=== PATIENT | male | born 1960 | race Caucasian/White ===

== ENCOUNTER 2022-02-10 13:57 | Inpatient (IN) | payer OTHER ==
[2022-02-10] MEDS ORDERED: methylPREDNISolone SOD SUCCI 125 MG/2 ML VIAL IV STA (14:26)
[2022-02-10] MEDS ORDERED: SODIUM CHLORIDE 0.9% 1,000 ML IV STA ×2 (14:26)
[2022-02-10] MEDS ORDERED: IPRATROPIUM-ALBUTEROL 3 ML NEB INHALATION STA (14:26)
[2022-02-10] MEDS ORDERED: ASPIRIN 81 MG PO STA (14:28)
[2022-02-10 14:56] LABS: ALT 22 U/L (4-49); AST 45 U/L (17-59); African American GFR (CKD) >90 (>60 ml/min/1.73 sqM); Albumin 2.1 g/dL (3.5-5.0); Alkaline Phosphatase 191 U/L (38-126); Anion Gap 0 mmol/L; Blood Urea Nitrogen 9 mg/dL (9-20); Calcium 7.2 mg/dL (8.4-10.2); Carbon Dioxide 33 mmol/L (22-30); Chloride 97 mmol/L (98-107); Glucose 99 mg/dL (74-99); Non-African American GFR(CKD) >90 (>60 ml/min/1.73 sqM); Potassium 4.1 mmol/L (3.5-5.1); Sodium 130 mmol/L (137-145); Total Bilirubin 0.3 mg/dL (0.2-1.3); Total Protein 5.7 g/dL (6.3-8.2)
--- NOTE | 2022-02-10 15:11 | XR ---
EXAMINATION TYPE: XR chest 2V DATE OF EXAM: 02/10/2022 2:59 PM COMPARISON: none TECHNIQUE: XR chest 2V Frontal and lateral views of the chest. CLINICAL INDICATION:Male, 61 years old with history of difficulty breathing; FINDINGS: Lungs/Pleura: Right upper lobe airspace opacity. No evidence of pleural effusion. Pulmonary vascularity: Unremarkable. Heart/mediastinum: Cardiomediastinal silhouette is unremarkable. Musculoskeletal: No acute osseous pathology. IMPRESSION: Confluent right upper lobe airspace opacity concerning for mass and/or pneumonia. Further evaluation with CT chest with IV contrast is recommended.
[2022-02-10] MEDS ORDERED: IPRATROPIUM-ALBUTEROL 3 ML NEB INHALATION PRN (15:16)
[2022-02-10] MEDS ORDERED: SYMBICORT 160-4.5 MCG INHALER INHALATION STA (15:18)
[2022-02-10] MEDS ORDERED: RX INFO: IV CONTRAST WAS GIVEN 1 EACH MISC MISCELLANE PRN (15:30)
[2022-02-10] MEDS ORDERED: AZITHROMYCIN 500 MG in SODIUM CHLORIDE 0.9% 250 ML IVPB STA (15:34)
--- NOTE | 2022-02-10 15:38 | ED ---
SOB HPI - General Chief Complaint: Shortness of Breath Stated Complaint: MAGALIE Time Seen by Provider: 02/10/22 14:11 Source: EMS Mode of arrival: EMS - History of Present Illness Initial Comments: This 61-year-old male presents with complaint of shortness of breath. He states that he has been having a significant cough with green and yellow production. This is been progressively worsening over the last 2 weeks. He is an active tobacco abuser. He has been told in the past that he may have COPD. He does not utilize oxygen at home. He does not utilize any breathing treatments. He states that he ran out of his inhaler. He does not follow up with providers frequently. He does not take any home medications as he does not follow up with providers. He denies any actual fevers. There is no leg pain or swelling. He has had occasional chest pressure in his midsternal region which is not pleuritic in nature. He presents via EMS and his oxygenation apparently was 80% on room air per EMS but is now up to 97% on 2 L. No other complaints or modifying factors. Family does call in and relates that patient is addicted to alcohol and oxycodone. I do ask the patient about this and he states that he drinks 2 beers a day but has never gone through any alcohol withdrawals. He adamantly denies utilizing any oxycodone. Family later does call back and states that somebody will be coming to the emergency department to sneak him some oxycodone. Patient is complaining of having a bad back and states that the mattress is uncomfortable and requests something to help relax him so he can get more comfortable. No other complaints or modifying factors. - Related Data Home Medications Medication Instructions Recorded Confirmed No Known Home Medications 02/10/22 02/10/22 Allergies Allergy/AdvReac Type Severity Reaction Status Date / Time No Known Allergies Allergy Verified 02/10/22 16:06 Review of Systems ROS Statement: Those systems with pertinent positive or pertinent negative responses have been documented in the HPI. ROS Other: All systems not noted in ROS Statement are negative. Past Medical History Past Medical History: No Reported History History of Any Multi-Drug Resistant Organisms: None Reported Past Surgical History: Appendectomy Additional Past Surgical History / Comment(s): knee surgery x 2, shoulder surgery Past Psychological History: No Psychological Hx Reported Smoking Status: Current every day smoker Past Alcohol Use History: Daily Past Drug Use History: Marijuana General Exam - General Exam Comments Initial Comments: GENERAL: The patient is malnourished and dehydrated. VITAL SIGNS: Heart rate, blood pressure, respiratory rate reviewed as recorded in nurse's notes. EYES: Pupils are round and reactive. Extraocular movements are intact. No conjunctival / lid redness or swelling. ENT: No external evidence of injury, swelling, or ecchymosis. Airway is patent. Throat is clear. NECK: Nontender. No swelling or evidence of injury. No subcutaneous emphysema. Trachea is midline. No thyroid mass. HEART: Regular rate and rhythm. Good peripheral pulses. LUNGS/CHEST: Breath sounds clear and equal bilaterally. Decreased aeration noted bilaterally. Patient has barrel chest morphology. ABDOMEN: Abdomen soft without tenderness. No palpable masses or organomegaly. No peritoneal signs. No abdominal wall swelling or ecchymosis. EXTREMITIES: No extremity tenderness. Normal muscle tone and function. No thorac olumbar tenderness. NEUROLOGIC: Sensation is grossly intact. Cranial nerve exam reveals face is sym metrical, tongue is midline, speech is clear. SKIN: No abrasions or ecchymosis is noted. No induration or masses noted. PSYCHIATRIC: Alert and oriented. Appropriate behavior and judgment. Course Vital Signs 02/10/22 02/10/22 02/10/22 13:59 16:13 16:21 Temperature 97.7 F Pulse Rate 91 88 90 Respiratory 24 Rate Blood Pressure 93/63 O2 Sat by Pulse 95 Oximetry 02/10/22 02/10/22 02/10/22 16:22 16:33 17:30 Temperature Pulse Rate 90 92 98 Respiratory 29 H Rate Blood Pressure 100/67 O2 Sat by Pulse 95 Oximetry Medical Decision Making - Medical Decision Making The patient was seen and examined. All diagnostics were reviewed. The patient was placed on vehicle monitor technician and no ectopy is identified. EKG shows a normal sinus rhythm at a rate of 83. There is some T-wave inversions noted in V1 through V3. There is no ST elevation identified. The NC intervals 154, QRS duration is 86, and the QTc interval is 444. Patient receives 2 DuoNeb breathing treatments as well as Solu-Medrol 125 mg IV. He has multiple laboratory values ordered. There appears to be some delay in receiving these. The basic metabolic profile did come back and only shows slight abnormalities with normal renal function. Chest x-ray shows a large mass versus infiltrate in the right upper chest. The radiologist recommends a computed tomography scan of the thorax for further evaluation. This is ordered and is pending. The case is discussed with Dr. Holliday from internal medicine and he would like patient admitted to the hospital. Patient started on Rocephin and Zithromax. Pulmonology is consulted from internal medicine. Viral panels are pending as well. Patient was admitted for full admission for further treatment. Approximately 30 minutes critical care time was utilized and treatment of the patient. The patient has positive COVID test. The white blood cell count also is updated. The computed tomography scan of the thorax was completed and does show evidence of extensive right upper lobe inflammatory changes. They relate that a cavitary lesion cannot be excluded. Underlying mass cannot be excluded. CT scan findings are discussed with Dr. Iglesias and he recommends Zosyn and Levaquin. Antibiotics are changed to these medications instead. - Lab Data Result diagrams: 02/10/22 14:41 02/10/22 14:41 Lab Results 02/10/22 02/10/22 02/10/22 Range/Units 14:41 14:41 14:41 WBC 16.5 H (3.8-10.6) k/uL RBC 3.67 L (4.30-5.90) m/uL Hgb 11.0 L (13.0-17.5) gm/dL Hct 34.7 L (39.0-53.0) % MCV 94.7 (80.0-100.0) fL MCH 29.9 (25.0-35.0) pg MCHC 31.5 (31.0-37.0) g/dL RDW 13.6 (11.5-15.5) % Plt Count 482 H (150-450) k/uL MPV 7.6 Neutrophils % (Manual) 90 % Lymphocytes % (Manual) 6 % Monocytes % (Manual) 4 % Neutrophils # (Manual) 14.85 H (1.3-7.7) k/uL Lymphocytes # (Manual) 0.99 L (1.0-4.8) k/uL Monocytes # (Manual) 0.66 (0-1.0) k/uL Nucleated RBCs 0 (0-0) /100 WBC Manual Slide Review Performed Hypochromasia Slight PT 11.8 (9.0-12.0) sec INR 1.1 (<1.2) APTT 31.1 H (22.0-30.0) sec Sodium 130 L (137-145) mmol/L Potassium 4.1 (3.5-5.1) mmol/L Chloride 97 L (98-107) mmol/L Carbon Dioxide 33 H (22-30) mmol/L Anion Gap 0 mmol/L BUN 9 (9-20) mg/dL Creatinine 0.39 L (0.66-1.25) mg/dL Est GFR (CKD-EPI)AfAm >90 (>60 ml/min/1.73 sqM) Est GFR (CKD-EPI)NonAf >90 (>60 ml/min/1.73 sqM) Glucose 99 (74-99) mg/dL Plasma Lactic Acid Carlos (0.7-2.0) mmol/L Calcium 7.2 L (8.4-10.2) mg/dL Magnesium 2.0 (1.6-2.3) mg/dL Total Bilirubin 0.3 (0.2-1.3) mg/dL AST 45 (17-59) U/L ALT 22 (4-49) U/L Alkaline Phosphatase 191 H (38-126) U/L Troponin I (0.000-0.034) ng/mL NT-Pro-B Natriuret Pep pg/mL Total Protein 5.7 L (6.3-8.2) g/dL Albumin 2.1 L (3.5-5.0) g/dL Influenza Type A (PCR) (Not Detectd) Influenza Type B (PCR) (Not Detectd) RSV (PCR) (Not Detectd) SARS-CoV-2 (PCR) (Not Detectd) 02/10/22 02/10/22 02/10/22 Range/Units 14:41 14:41 14:41 WBC (3.8-10.6) k/uL RBC (4.30-5.90) m/uL Hgb (13.0-17.5) gm/dL Hct (39.0-53.0) % MCV (80.0-100.0) fL MCH (25.0-35.0) pg MCHC (31.0-37.0) g/dL RDW (11.5-15.5) % Plt Count (150-450) k/uL MPV Neutrophils % (Manual) % Lymphocytes % (Manual) % Monocytes % (Manual) % Neutrophils # (Manual) (1.3-7.7) k/uL Lymphocytes # (Manual) (1.0-4.8) k/uL Monocytes # (Manual) (0-1.0) k/uL Nucleated RBCs (0-0) /100 WBC Manual Slide Review Hypochromasia PT (9.0-12.0) sec INR (<1.2) APTT (22.0-30.0) sec Sodium (137-145) mmol/L Potassium (3.5-5.1) mmol/L Chloride (98-107) mmol/L Carbon Dioxide (22-30) mmol/L Anion Gap mmol/L BUN (9-20) mg/dL Creatinine (0.66-1.25) mg/dL Est GFR (CKD-EPI)AfAm (>60 ml/min/1.73 sqM) Est GFR (CKD-EPI)NonAf (>60 ml/min/1.73 sqM) Glucose (74-99) mg/dL Plasma Lactic Acid Carlos 1.2 (0.7-2.0) mmol/L Calcium (8.4-10.2) mg/dL Magnesium (1.6-2.3) mg/dL Total Bilirubin (0.2-1.3) mg/dL AST (17-59) U/L ALT (4-49) U/L Alkaline Phosphatase (38-126) U/L Troponin I 0.014 (0.000-0.034) ng/mL NT-Pro-B Natriuret Pep 1760 pg/mL Total Protein (6.3-8.2) g/dL Albumin (3.5-5.0) g/dL Influenza Type A (PCR) (Not Detectd) Influenza Type B (PCR) (Not Detectd) RSV (PCR) (Not Detectd) SARS-CoV-2 (PCR) (Not Detectd) 02/10/22 Range/Units 15:07 WBC (3.8-10.6) k/uL RBC (4.30-5.90) m/uL Hgb (13.0-17.5) gm/dL Hct (39.0-53.0) % MCV (80.0-100.0) fL MCH (25.0-35.0) pg MCHC (31.0-37.0) g/dL RDW (11.5-15.5) % Plt Count (150-450) k/uL MPV Neutrophils % (Manual) % Lymphocytes % (Manual) % Monocytes % (Manual) % Neutrophils # (Manual) (1.3-7.7) k/uL Lymphocytes # (Manual) (1.0-4.8) k/uL Monocytes # (Manual) (0-1.0) k/uL Nucleated RBCs (0-0) /100 WBC Manual Slide Review Hypochromasia PT (9.0-12.0) sec INR (<1.2) APTT (22.0-30.0) sec Sodium (137-145) mmol/L Potassium (3.5-5.1) mmol/L Chloride (98-107) mmol/L Carbon Dioxide (22-30) mmol/L Anion Gap mmol/L BUN (9-20) mg/dL Creatinine (0.66-1.25) mg/dL Est GFR (CKD-EPI)AfAm (>60 ml/min/1.73 sqM) Est GFR (CKD-EPI)NonAf (>60 ml/min/1.73 sqM) Glucose (74-99) mg/dL Plasma Lactic Acid Carlos (0.7-2.0) mmol/L Calcium (8.4-10.2) mg/dL Magnesium (1.6-2.3) mg/dL Total Bilirubin (0.2-1.3) mg/dL AST (17-59) U/L ALT (4-49) U/L Alkaline Phosphatase (38-126) U/L Troponin I (0.000-0.034) ng/mL NT-Pro-B Natriuret Pep pg/mL Total Protein (6.3-8.2) g/dL Albumin (3.5-5.0) g/dL Influenza Type A (PCR) Not Detected (Not Detectd) Influenza Type B (PCR) Not Detected (Not Detectd) RSV (PCR) Not Detected (Not Detectd) SARS-CoV-2 (PCR) Detected A (Not Detectd) Disposition Clinical Impression: Acute respiratory failure, Pneumonia, COPD exacerbation, Chest pain, COVID-19, Leukocytosis, Anemia, Cavitary lesion of lung, Pulmonary mass Disposition: ADMITTED IP TO THIS HOSP Condition: Fair Is patient prescribed a controlled substance at d/c from ED?: No Time of Disposition: 16:05 Decision Date: 02/10/22 Decision Time: 16:05
[2022-02-10] MEDS ORDERED: PNEUMONIA PROTOCOL UTILIZED 1 EACH MISC PO PRN (15:53)
[2022-02-10 15:58] LABS: INR 1.1 (<1.2); Partial Thromboplastin Time 31.1 sec (22.0-30.0); Prothrombin Time 11.8 sec (9.0-12.0)
[2022-02-10 16:03] LABS: HCT 34.7 % (39.0-53.0); Hypochromasia Slight; MCH 29.9 pg (25.0-35.0); MCHC 31.5 g/dL (31.0-37.0); MCV 94.7 fL (80.0-100.0); Mean Platelet Volume 7.6; Platelet Count 482 k/uL (150-450); RBC 3.67 m/uL (4.30-5.90); RDW 13.6 % (11.5-15.5); WBC 16.5 k/uL (3.8-10.6)
[2022-02-10 17:03] LABS: Lymphocytes # (M) 0.99 k/uL (1.0-4.8); Monocytes # (M) 0.66 k/uL (0-1.0); Neutrophils # (M) 14.85 k/uL (1.3-7.7); Neutrophils % (M) 90 %; Nucleated Red Blood Cells 0 /100 WBC (0-0); Total Cells Counted 100
--- NOTE | 2022-02-10 17:43 | CT ---
EXAMINATION TYPE: CT chest w con CT DLP: 238.9 mGycm, Automated exposure control for dose reduction was used. DATE OF EXAM: 02/10/2022 5:19 PM COMPARISON: Same day CLINICAL INDICATION:Male, 61 years old with history of mass vs acute right, mass vs infiltrate from p rior xr. TECHNIQUE: Multiple axial images were obtained through the chest. Sagittal and coronal reformats were created for review. Contrast used:100ml mL of Isovue 370 with IV Contrast Oral contrast used: none. FINDINGS: LUNGS/ PLEURA/airways: New confluent right upper lobe airspace opacity with few scattered air cysts. Involves the majority of the upper lobe and extends into the lower lobe posteriorly. There is bronchi al wall thickening most pronounced in the lower lobes. Scattered groundglass and opacities are seen a djacent to the consolidation areas. There is a masslike opacity which stands out as it is away from t he remainder of the consolidation more inferiorly measuring up to 2.7 cm. No evidence of pleural effu manjula. The left lung is clear with mild emphysema changes. Some of the airways extending into the cons olidation are opacified more distally. HEART: Size within normal limits. Atherosclerosis of the coronary arteries. MEDIASTINUM: Enlarged lymph nodes are seen within the mediastinum including right low paratracheal me asuring 12 mm in right upper paratracheal conglomerate measuring up to 10 mm. VASCULATURE: No aortic aneurysm. No evidence for pulmonary embolism. 4 vessel aortic arch. MUSCULOSKELETAL: No acute osseous abnormalities SOFT TISSUES/LYMPH NODES: Unremarkable. LOWER NECK: No significant findings. UPPER ABDOMEN: No significant findings. IMPRESSION: 1. Extensive right-sided consolidation, some of which looks like it may be infectious/inflammatory w ith aspiration on entirely excluded. Other portions in the upper lobe have air pockets which could re present cavitation in the setting of necrotizing pneumonia. Underlying mass remains not entirely excl uded given enlarged lymph nodes within the mediastinum. Follow-up CT after resolution of infectious/i nflammatory component is recommended to exclude underlying mass. 2. No pulmonary embolism.
[2022-02-10] MEDS ORDERED: KETOROLAC 15 MG/ML 1 ML VIAL IVP STA (18:14)
[2022-02-10] MEDS ORDERED: PIPERACILLIN-TAZOBACTAM 3.375 GM in SODIUM CHLORIDE 0.9% 100 ML IVPB STA (18:19)
[2022-02-10] MEDS ORDERED: LEVOFLOXACIN 750MG-D5W PMX 750 MG in DEXTROSE/WATER 1 150ML.BAG IVPB STA (18:19)
[2022-02-10] MEDS ORDERED: LORazepam 2 MG/ML INJ IV STA (18:24)
[2022-02-10] MEDS: SODIUM CHLORIDE 0.9% 1,000 ML IV SCH (18:38)
--- NOTE | 2022-02-10 18:50 | P.HPIM ---
History of Present Illness This is a pleasant 61 years old male with no significant past medical history, presents because of difficulty breathing for the last few days Patient brought by his family member at bedside who noticed he is getting worsening dyspnea especially when walking upstairs, Also have occasional coughing and not eating well with decreased appetite over the last few days, he is making green/yellow phlegm and also complaining of from chest pain in the middle of his chest that increased with coughing and deep inspiration He denies abdominal pain vomiting or diarrhea, no dysuria or urgency, no dizziness or headache, no weakness or numbness. He smokes about half pack per day and he was consulted and agrees to quit but he declined the nicotine patch and he drinks 5-6 beers a day with some liquor and shots, also per family he uses oxycodone for dependence about 30 mg each day. Also patient is generally weak. On admission patient was mildly hypoxic and he has to be placed on 4 L normal saline with saturation improved up to 95%, he is tachypneic 24-29, slightly tachycardic about 88-98 Labs showing leukocytosis of 16.5, hemoglobin 11, platelet count slightly elevated. INR 1.1, sodium 1:30, BUN 9 and creatinine 0.3. Liver enzymes not elevated. Troponin 1 is negative at 0.012. ProBNP is 1760. Influenza and RSV viruses are negative while coronavirus is detected CT of the chest with IV contrast: New confluent right upper lobe airspace opacity with few scattered air cyst involves the majority of the upper lobe and extends into the lower lobe posteriorly. There is bronchial wall thickening most pronounced in the lower lobes. Scattered groundglass opacity. There is minus like opacity which stands hours as it is away from the remainder of consolidation more inferiorly measure up to 2.7 cm. No pulmonary embolism In the emergency room patient was started on Levaquin and Zosyn Also patient is started on Solu-Medrol 80 mg as well as multiple vitamins Review of Systems Review of systems CONSTITUTIONAL: No fever, no malaise, no fatigue. HEENT: No recent visual problems or hearing problems. Denied any sore throat. CARDIOVASCULAR: No orthopnea, PND, no palpitations, no syncope. PULMONARY: No chest wall tenderness, no hemoptysis. GASTROINTESTINAL: No diarrhea, no nausea, no vomiting, no abdominal pain. Normoactive bowel sounds. NEUROLOGICAL: No headaches, no weakness, no numbness. HEMATOLOGICAL: Denies any bleeding or petechiae. GENITOURINARY: Denies any burning micturition, frequency, or urgency. MUSCULOSKELETAL/RHEUMATOLOGICAL: Denies any joint pain, swelling, or any muscle pain. ENDOCRINE: Denies any polyuria or polydipsia. Past Medical History Past Medical History: No Reported History History of Any Multi-Drug Resistant Organisms: None Reported Past Surgical History: Appendectomy Additional Past Surgical History / Comment(s): knee surgery x 2, shoulder surgery Past Psychological History: No Psychological Hx Reported Smoking Status: Current every day smoker Past Alcohol Use History: Daily Past Drug Use History: Marijuana Medications and Allergies Home Medications Medication Instructions Recorded Confirmed Type No Known Home Medications 02/10/22 02/10/22 History Allergies Allergy/AdvReac Type Severity Reaction Status Date / Time No Known Allergies Allergy Verified 02/10/22 16:06 Physical Exam Vitals: Vital Signs Temp Pulse Resp BP Pulse Ox 02/10/22 17:30 98 29 H 100/67 95 02/10/22 16:33 92 02/10/22 16:22 90 02/10/22 16:21 90 02/10/22 16:13 88 02/10/22 13:59 97.7 F 91 24 93/63 95 Intake and Output 02/10/22 02/10/22 02/10/22 06:59 14:59 22:59 Other: Weight 54.885 kg -GENERAL: The patient is alert and oriented x3, not in any acute distress. Well cachectic HEENT: Pupils are round and equally reacting to light. EOMI. No scleral icterus. No conjunctival pallor. Normocephalic, atraumatic. No pharyngeal erythema. No thyromegaly. CARDIOVASCULAR: S1 and S2 present. No murmurs, rubs, or gallops. -PULMONARY: Diminished breath sounds and decreased air entry on both lung andino, more on the right side, no wheezing or crackles. ABDOMEN: Soft, nontender, nondistended, normoactive bowel sounds. No palpable organomegaly. MUSCULOSKELETAL: No joint swelling or deformity. EXTREMITIES: No cyanosis, clubbing, or pedal edema. NEUROLOGICAL: Gross neurological examination did not reveal any focal deficits. SKIN: No rashes. no petechiae. Results CBC & Chem 7: 02/10/22 14:41 02/10/22 14:41 Labs: Abnormal Lab Results - Last 24 Hours (Table) 02/10/22 02/10/22 02/10/22 Range/Units 14:41 14:41 14:41 WBC 16.5 H (3.8-10.6) k/uL RBC 3.67 L (4.30-5.90) m/uL Hgb 11.0 L (13.0-17.5) gm/dL Hct 34.7 L (39.0-53.0) % Plt Count 482 H (150-450) k/uL Neutrophils # (Manual) 14.85 H (1.3-7.7) k/uL Lymphocytes # (Manual) 0.99 L (1.0-4.8) k/uL APTT 31.1 H (22.0-30.0) sec Sodium 130 L (137-145) mmol/L Chloride 97 L (98-107) mmol/L Carbon Dioxide 33 H (22-30) mmol/L Creatinine 0.39 L (0.66-1.25) mg/dL Calcium 7.2 L (8.4-10.2) mg/dL Alkaline Phosphatase 191 H (38-126) U/L Total Protein 5.7 L (6.3-8.2) g/dL Albumin 2.1 L (3.5-5.0) g/dL SARS-CoV-2 (PCR) (Not Detectd) 02/10/22 Range/Units 15:07 WBC (3.8-10.6) k/uL RBC (4.30-5.90) m/uL Hgb (13.0-17.5) gm/dL Hct (39.0-53.0) % Plt Count (150-450) k/uL Neutrophils # (Manual) (1.3-7.7) k/uL Lymphocytes # (Manual) (1.0-4.8) k/uL APTT (22.0-30.0) sec Sodium (137-145) mmol/L Chloride (98-107) mmol/L Carbon Dioxide (22-30) mmol/L Creatinine (0.66-1.25) mg/dL Calcium (8.4-10.2) mg/dL Alkaline Phosphatase (38-126) U/L Total Protein (6.3-8.2) g/dL Albumin (3.5-5.0) g/dL SARS-CoV-2 (PCR) Detected A (Not Detectd) Assessment and Plan Assessment: Right upper lobe consolidation involving the majority of the upper lobe and acceptance into lower lobe posteriorly suspicious for pneumonia, rule out aspiration pneumonia Right lung mass 2.7 cm Acute COPD exacerbation Acute hypoxic respiratory failure Possible Sepsis with leukocytosis, tachycardia and tachypnea Nicotine dependence Moderate to severe calories and protein malnutrition Alcohol use disorder Opioid dependence Plan: Continue with a breathing treatment and bronchodilator Continue with antibiotic, currently on Zosyn Continue with oxygen as needed Pulmonary team consult CIWA protocol and thiamine Nutrition consult and ensure Labs and medication were reviewed.. Continue same treatment. Continue with symptomatic treatment. Resume home medication. Monitor lytes and vitals. DVT and GI prophylaxis. Further recommendations as per clinical course of the patient DVT prophylaxis: Subcutaneous heparin GI Prophylaxis: Pepcid PT/OT: Pending Prognosis is guarded
[2022-02-10] MEDS ORDERED: HEPARIN SODIUM,PORCINE/PF 5,000 UNIT/0.5 ML SYRINGE SQ SCH (21:00)
[2022-02-10] MEDS: FAMOTIDINE 20 MG/2 ML VIAL IV SCH (21:43)
[2022-02-11] MEDS ORDERED: LORazepam 1 MG TAB PO PRN ×3 (00:31)
[2022-02-11] MEDS: methylPREDNISolone SOD SUCCI 40 MG/ML 1 ML VIAL IV SCH ×3 (01:15→15:47)
[2022-02-11] MEDS: SODIUM CHLORIDE 0.9% 1,000 ML IV SCH ×2 (01:37→17:34)
[2022-02-11] MEDS: PIPERACILLIN-TAZOBACTAM 3.375 GM in SODIUM CHLORIDE 0.9% 100 ML IVPB SCH ×3 (01:37→17:34)
[2022-02-11 04:23] LABS: Amphetamine Screen,Urine Not Detected (NotDetected); Barbiturate Screen,Urine Not Detected (NotDetected); Benzodiazepines Screen,Urine Detected (NotDetected); Cocaine Screen,Urine Detected (NotDetected); Methadone Screen, Urine Not Detected (NotDetected); Opiate Screen,Urine Detected (NotDetected); Oxycodone Screen, Urine Not Detected (NotDetected); Phencyclidine Screen,Urine Not Detected (NotDetected); Tricyclic Antidepressant,Urine Not Detected (NotDetected); Urn Cannabinoid Scrn Not Detected (NotDetected)
[2022-02-11] MEDS: FAMOTIDINE 20 MG/2 ML VIAL IV SCH ×2 (07:42→22:12)
[2022-02-11] MEDS: ENOXAPARIN 40 MG/0.4 ML SYRINGE SQ SCH (07:42)
[2022-02-11] MEDS: ZINC SULFATE 220 MG CAP PO SCH (07:43)
[2022-02-11] MEDS: CHOLECALCIFEROL 25 MCG (1000 IU) TABLET PO SCH (07:43)
[2022-02-11] MEDS: ASCORBIC ACID 500 MG TAB PO SCH (07:43)
[2022-02-11] MEDS: ASPIRIN 325 MG TAB PO SCH (07:43)
--- NOTE | 2022-02-11 07:53 | XR ---
EXAMINATION TYPE: XR chest 1V portable DATE OF EXAM: 02/11/2022 7:26 AM COMPARISON: Chest radiograph from one day prior. CT chest 02/10/2022 TECHNIQUE: XR chest 1V portable Portable AP radiograph of the chest. CLINICAL INDICATION:Male, 61 years old with history of pneumonia; FINDINGS: Lungs/Pleura: Improved aeration of lungs on today's exam with persistent right airspace opacities. No pneumothorax. Pulmonary vascularity: Unremarkable. Heart/mediastinum: Cardiomediastinal silhouette is unremarkable. Musculoskeletal: No acute osseous pathology. IMPRESSION: Improved aeration of the lungs likely secondary to phase of inspiration. Persistent right upper conso lidation scattered airspace. Continued attention on follow-up imaging is recommended.
[2022-02-11] MEDS ORDERED: THIAMINE 100 MG in SODIUM CHLORIDE 0.9% 50 ML IVPB SCH (09:00)
[2022-02-11] MEDS ORDERED: AZITHROMYCIN 500 MG TAB PO SCH (09:00)
--- NOTE | 2022-02-11 11:28 | P.PN ---
Subjective This is a pleasant 61 years old male with no significant past medical history, presents because of difficulty breathing for the last few days Patient brought by his family member at bedside who noticed he is getting worsening dyspnea especially when walking upstairs, Also have occasional coughing and not eating well with decreased appetite over t he last few days, he is making green/yellow phlegm and also complaining of from chest pain in the middle of his chest that increased with coughing and deep inspiration He denies abdominal pain vomiting or diarrhea, no dysuria or urgency, no dizziness or headache, no weakness or numbness. He smokes about half pack per day and he was consulted and agrees to quit but he declined the nicotine patch and he drinks 5-6 beers a day with some liquor and shots, also per family he uses oxycodone for dependence about 30 mg each day. Also patient is generally weak. On admission patient was mildly hypoxic and he has to be placed on 4 L normal saline with saturation improved up to 95%, he is tachypneic 24-29, slightly tachycardic about 88-98 Labs showing leukocytosis of 16.5, hemoglobin 11, platelet count slightly elevated. INR 1.1, sodium 1:30, BUN 9 and creatinine 0.3. Liver enzymes not elevated. Troponin 1 is negative at 0.012. ProBNP is 1760. Influenza and RSV viruses are negative while coronavirus is detected CT of the chest with IV contrast: New confluent right upper lobe airspace opacit y with few scattered air cyst involves the majority of the upper lobe and extends into the lower lobe posteriorly. There is bronchial wall thickening most pronounced in the lower lobes. Scattered groundglass opacity. There is minus like opacity which stands hours as it is away from the remainder of consolidation more inferiorly measure up to 2.7 cm. No pulmonary embolism In the emergency room patient was started on Levaquin and Zosyn Also patient is started on Solu-Medrol 80 mg as well as multiple vitamins 02/11/2022 Patient sits up up in bed eating his breakfast this morning, he says her breathing is better however is on 6 L oxygen via nasal cannula with saturations in the low 90s, he is mildly tachypneic but not in respiratory distress at rest. Urine drug screen is positive for cocaine as well as opioids Labs from this morning are pending TB test is requested Patient reports some depression but denies suicidal or homicidal ideation, psychiatric team were consulted He does not show significant withdrawal symptoms Review of systems CONSTITUTIONAL: No fever, no malaise, no fatigue. HEENT: No recent visual problems or hearing problems. Denied any sore throat. CARDIOVASCULAR: No orthopnea, PND, no palpitations, no syncope. PULMONARY: No shortness of breath, no cough, no hemoptysis. GASTROINTESTINAL: No diarrhea, no nausea, no vomiting, no abdominal pain. N ormoactive bowel sounds. NEUROLOGICAL: No headaches, no weakness, no numbness. HEMATOLOGICAL: Denies any bleeding or petechiae. GENITOURINARY: Denies any burning micturition, frequency, or urgency. Active Medications Generic Name Dose Route Start Last Admin Trade Name Freq PRN Reason Stop Dose Admin Ascorbic Acid 1,000 mg 02/11/22 09:00 02/11/22 07:43 Ascorbic Acid 500 Mg Tab PO 1,000 mg DAILY [facility] Administration Aspirin 325 mg 02/11/22 09:00 02/11/22 07:43 Aspirin 325 Mg Tab PO 325 mg DAILY [facility] Administration Cholecalciferol 50 mcg 02/11/22 09:00 02/11/22 07:43 Cholecalciferol 25 Mcg (1000 Iu) Tablet PO 50 mcg DAILY [facility] Administration Enoxaparin Sodium 40 mg 02/11/22 09:00 02/11/22 07:42 Enoxaparin 40 Mg/0.4 Ml Syringe SQ 40 mg DAILY [facility] Administration Famotidine 20 mg 02/10/22 21:00 02/11/22 07:42 Famotidine 20 Mg/2 Ml Vial IV 20 mg Q12HR [facility] Administration Sodium Chloride 1,000 mls @ 125 mls/hr 02/10/22 18:00 02/11/22 01:37 Saline 0.9% IV 125 mls/hr .Q8H [facility] Administration Piperacillin Sod/Tazobactam 100 mls @ 200 mls/hr 02/11/22 02:00 02/11/22 09:26 Sod 3.375 gm/ Sodium Chloride IVPB 200 mls/hr Q8H [facility] Administration Protocol Levofloxacin 750 mg/ IV 150 mls @ 100 mls/hr 02/11/22 18:00 Solution IVPB Q24H [facility] Protocol Lorazepam 0.5 mg 02/11/22 00:31 Lorazepam 0.5 Mg Tab PO Q4HR PRN Ciwa 4 To 5 Lorazepam 1 mg 02/11/22 00:31 Lorazepam 1 Mg Tab PO Q4HR PRN Ciwa 6 To 7 Lorazepam 2 mg 02/11/22 00:31 Lorazepam 1 Mg Tab PO Q2HR PRN Ciwa 10 or greater Lorazepam 2 mg 02/11/22 00:31 Lorazepam 1 Mg Tab PO Q3HR PRN Ciwa 8 To 9 Methylprednisolone Sodium Succinate 40 mg 02/11/22 00:00 02/11/22 07:42 Methylprednisolone Sod Succi 40 Mg/Ml 1 Ml Vial IV 40 mg Q8HR [facility] Administration Miscellaneous Information 1 each 02/10/22 15:30 Rx Info: Iv Contrast Was Given 1 Each Misc MISCELLANE 02/12/22 15:32 DAILY PRN Per Protocol Miscellaneous Information 1 each 02/10/22 15:53 Pneumonia Protocol Utilized 1 Each Misc PO ONCE PRN Per Protocol Thiamine HCl 100 mg 02/11/22 09:00 Thiamine 100 Mg/Ml 2 Ml Vial IVP DAILY [facility] Zinc Sulfate 220 mg 02/11/22 09:00 02/11/22 07:43 Zinc Sulfate 220 Mg Cap PO 220 mg DAILY [facility] Administration Objective - Vital Signs Vital signs: Vital Signs Temp 97.9 F 02/11/22 10:50 Pulse 78 02/11/22 10:50 Resp 22 02/11/22 10:50 BP 104/62 02/11/22 10:50 Pulse Ox 91 L 02/11/22 10:50 FiO2 Intake & Output 02/10/22 02/11/22 02/11/22 18:59 06:59 18:59 Intake Total 1230 Output Total 500 200 Balance -500 1030 Weight 54.885 kg Intake: Intake, IV Titration 850 Amount Levofloxacin 750Mg-D5w 150 Pmx 750 mg In Dextrose/ Water 1 150ml.bag @ 100 mls/hr IVPB Q24H [facility] Rx#: [id number] Piperacillin-Tazobactam 3 100 .375 gm In Sodium Chloride 0.9% 100 ml @ 200 mls/hr IVPB Q8H [facility] Rx#:[id number] Sodium Chloride 0.9% 1, 600 000 ml @ 125 mls/hr IV . Q8H [facility] Rx#:[id number] Oral 380 Output: Urine 500 200 Straight 500 Other: # Bowel Movements 1 - Exam -GENERAL: The patient is alert and oriented x3, not in any acute distress. Well cachectic HEENT: Pupils are round and equally reacting to light. EOMI. No scleral icterus. No conjunctival pallor. Normocephalic, atraumatic. No pharyngeal erythema. No thyromegaly. CARDIOVASCULAR: S1 and S2 present. No murmurs, rubs, or gallops. -PULMONARY: Diminished breath sounds and decreased air entry on both lung andino, more on the right side, no wheezing or crackles. ABDOMEN: Soft, nontender, nondistended, normoactive bowel sounds. No palpable organomegaly. MUSCULOSKELETAL: No joint swelling or deformity. EXTREMITIES: No cyanosis, clubbing, or pedal edema. NEUROLOGICAL: Gross neurological examination did not reveal any focal deficits. SKIN: No rashes. no petechiae. - Labs CBC & Chem 7: 02/10/22 14:41 02/10/22 14:41 Labs: Abnormal Lab Results - Last 24 Hours (Table) 02/10/22 02/10/22 02/10/22 Range/Units 14:41 14:41 14:41 WBC 16.5 H (3.8-10.6) k/uL RBC 3.67 L (4.30-5.90) m/uL Hgb 11.0 L (13.0-17.5) gm/dL Hct 34.7 L (39.0-53.0) % Plt Count 482 H (150-450) k/uL Neutrophils # (Manual) 14.85 H (1.3-7.7) k/uL Lymphocytes # (Manual) 0.99 L (1.0-4.8) k/uL APTT 31.1 H (22.0-30.0) sec Sodium 130 L (137-145) mmol/L Chloride 97 L (98-107) mmol/L Carbon Dioxide 33 H (22-30) mmol/L Creatinine 0.39 L (0.66-1.25) mg/dL Calcium 7.2 L (8.4-10.2) mg/dL Alkaline Phosphatase 191 H (38-126) U/L Total Protein 5.7 L (6.3-8.2) g/dL Albumin 2.1 L (3.5-5.0) g/dL Urine Opiates Screen (NotDetected) U Benzodiazepines Scrn (NotDetected) Urine Cocaine Screen (NotDetected) SARS-CoV-2 (PCR) (Not Detectd) 02/10/22 02/11/22 Range/Units 15:07 03:42 WBC (3.8-10.6) k/uL RBC (4.30-5.90) m/uL Hgb (13.0-17.5) gm/dL Hct (39.0-53.0) % Plt Count (150-450) k/uL Neutrophils # (Manual) (1.3-7.7) k/uL Lymphocytes # (Manual) (1.0-4.8) k/uL APTT (22.0-30.0) sec Sodium (137-145) mmol/L Chloride (98-107) mmol/L Carbon Dioxide (22-30) mmol/L Creatinine (0.66-1.25) mg/dL Calcium (8.4-10.2) mg/dL Alkaline Phosphatase (38-126) U/L Total Protein (6.3-8.2) g/dL Albumin (3.5-5.0) g/dL Urine Opiates Screen Detected H (NotDetected) U Benzodiazepines Scrn Detected H (NotDetected) Urine Cocaine Screen Detected H (NotDetected) SARS-CoV-2 (PCR) Detected A (Not Detectd) Assessment and Plan Assessment: Right upper lobe consolidation involving the majority of the upper lobe and a cceptance into lower lobe posteriorly suspicious for pneumonia, rule out aspiration pneumonia Right lung mass 2.7 cm Acute COPD exacerbation Acute hypoxic respiratory failure Possible Sepsis with leukocytosis, tachycardia and tachypnea Nicotine dependence Moderate to severe calories and protein malnutrition Alcohol use disorder Opioid dependence Plan: Continue with a breathing treatment and bronchodilator Continue with antibiotic, currently on Zosyn Continue with oxygen as needed Pulmonary team consult CIWA protocol and thiamine Nutrition consult and ensure Check TB test Psychiatric consult Labs and medication were reviewed.. Continue same treatment. Continue with symptomatic treatment. Resume home medication. Monitor lytes and vitals. DVT and GI prophylaxis. Further recommendations as per clinical course of the patient DVT prophylaxis: Subcutaneous heparin GI Prophylaxis: Pepcid PT/OT: Pending Prognosis is guarded
[2022-02-11 11:55] LABS: Basophils # (A) 0.1 k/uL (0-0.2); Basophils % (A) 0 %; Eosinophils % (A) 0 %; HCT 35.2 % (39.0-53.0); HGB 10.5 gm/dL (13.0-17.5); Hypochromasia Marked; Lymphocytes % (A) 4 %; MCH 29.2 pg (25.0-35.0); MCHC 29.7 g/dL (31.0-37.0); MCV 98.1 fL (80.0-100.0); Mean Platelet Volume 7.6; Monocytes # (A) 0.3 k/uL (0-1.0); Monocytes % (A) 1 %; Neutrophils # (A) 23.3 k/uL (1.3-7.7); Neutrophils % (A) 94 %; Platelet Count 483 k/uL (150-450); RBC 3.59 m/uL (4.30-5.90); WBC 24.8 k/uL (3.8-10.6)
[2022-02-11 12:10] LABS: African American GFR (CKD) >90 (>60 ml/min/1.73 sqM); Anion Gap 2 mmol/L; Blood Urea Nitrogen 14 mg/dL (9-20); Calcium 7.4 mg/dL (8.4-10.2); Carbon Dioxide 28 mmol/L (22-30); Chloride 104 mmol/L (98-107); Glucose 183 mg/dL (74-99); LDH 395 U/L (313-618); Non-African American GFR(CKD) >90 (>60 ml/min/1.73 sqM); Potassium 4.3 mmol/L (3.5-5.1); Sodium 134 mmol/L (137-145)
[2022-02-11 12:26] LABS: C Reactive Protein 18.4 mg/dL (<1.0)
--- NOTE | 2022-02-11 14:27 | P.CN ---
Psychiatric Consult - . Consult date: 02/11/22 Consult:: 02/11/22 13:51 IDENTIFYING DATA: This patient is a 61-year-old male REASON FOR REFERRAL: Psychiatry was consulted for depression and substance use HISTORY OF PRESENT ILLNESS: The patient presented to the hospital with shortness of breath and productive cough. He was admitted for right upper lobe consolidation, COPD exacerbation, respiratory failure, nutrient deficiency, alcohol use, and opioid dependence. He tested positive for COVID19. UDS was positive for opiates, benzos, and cocaine. CT chest was positive for right- sided consolidation with potential mass. He has been getting breathing treatments, is on Zosyn, and oxygen. He has also been placed on CIWA protocol and given thiamine daily. CIWA at 1128 today was 2. He was last given Ativan 1 mg on 02/10 at 1838. Although patient has not been forthright regarding his substance use, his sister reached out to nursing staff and expressed that he has been using substances, including alcohol. Patient was seen bedside this afternoon. He provided brief responses to questions and was guarded throughout the interview. He becomes irritable with some of the questions but answers them. He says that he had been doing well until the past 3 weeks when he has not been feeling well due to his cough. He denies a history of depression and says that his mood has been "good ". However, upon further discussion, patient admits that he has been feeling sad about his relationship with his . His will be moving away to [place] and he is frustrated with his physical health. He reports living with his sister and that he has been doing well otherwise. He states that he has good energy to complete his work. However, patient endorses decreased appetite and poor sleep for the past 3-4 weeks. He states that he has been sleeping 3-4 hours at night mostly due to his cough. He reports good concentration with his work but endorses using "a blue pill" for helping him focus. He believes that this blue pill is similar to Percocet 30 mg, but upon further review, it is Oxycodone 30 mg. Staff was also notified that they may be family that would try to sneak him Oxycodone. He says he last used this for the first time about 1 week ago but denies using it otherwise. He reports drinking 2 beers daily and denies using more than this recently. He endorses a history of drinking more in the past but would not describe how much more. However, per chart review, he reported drinking 5-6 beers and additional liquor. His last drink was 02/10/22. He denies a history of withdrawal seizures or tremors. He denies a history of s ubstance use treatment. He endorses occasional cannabis use and 0.5 ppd tobacco use for the past 40 years. He denies use of other substances. At this time patient denies any suicidal or homicidal ideations, intent or plan. Patient denies any auditory, visual hallucinations and denies any paranoia or delusions, as asked and assessed. PAST PSYCHIATRIC HISTORY: Patient denies being on any psychiatric medications. Patient denies any previous psychiatric hospitalizations. Patient denies any psychiatric outpatient follow-up. Patient denies any history of suicide attempts in the past. PAST MEDICAL HISTORY: Denies ALLERGIES: as per EMR. CHEMICAL DEPENDENCY HISTORY: as per HPI. FAMILY PSYCHIATRIC/SUBSTANCE USE HISTORY: Denies SOCIAL HISTORY: He reports having 7 siblings. Patient says he lives with his sister and nieces. He states that he has been for 35 years but that his is going to be moving to [place] to live with her sister. 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 He states he has 2 sons. MENTAL STATUS EXAM: General Appearance: Patient appears to be stated age is alert, superficially cooperative, and comfortable in bed. He is thin, frail, and on oxygen. Patient appears to have poor hygiene and grooming wearing hospital gown with poor eye contact. Behavior: Patient is calmly lying in bed without any agitated behavior. Guarded. No restlessness, diaphoresis, or tremor Speech: Brief, short responses Mood/Affect: Patient reports their mood is "I'm in here", affect is irritable Suicidality/Homicidality: Patient denies having any suicidal or homicidal ideation intent or plan. Perceptions: Patient denies any visual hallucinations and denies any auditory hallucinations Though content/process: There is no evidence of any delusional thought content and thought process is linear and goal-directed. Memory and concentration: AOX3, grossly intact for the purposes of this session. Judgment and insight: poor IMPRESSIONS: Depressive disorder, unspecified Alcohol use disorder, in withdrawal Opioid use disoder Cannabis use disorder Tobacco use disorder PLAN: -At this time patient DOES NOT meet criteria for inpatient psychiatric admission. -Would recommend the following medication changes/additions: Start Remeron 7.5 mg qHS for mood, sleep, and appetite -CIWA protocol with PRN Ativan for alcohol withdrawal. Continue to monitor vital signs. -Radiologist Diagnostic spoke with patient about substance abuse and the harmful effects on medical and mental health, patient verbally understood and agreed. Patient is uninterested in MAT for substance use despite discussion -cement worker to provide patient substance use treatment resources including AA/NA meetings in the community. -Communicated plan to patient's nurse -Will continue to follow along -Please contact with any questions.
--- NOTE | 2022-02-11 14:31 | P.CNPUL ---
History of Present Illness Consult date: 02/11/22 Reason for consult: dyspnea History of present illness: 61-year-old male patient, currently hospitalized for 4 and extensive pneumonia involving the right lung. The patient is a very poor historian. The patient has history of smoking, substance abuse in the form of marijuana and cocaine in addition to call drinking. He has done no medical follow-up over the years and he has essentially ignored his health and his condition has been progressively getting worse to the point where the patient started having worsening shortness of breath and was brought into the hospital for further evaluation. He was brought in by family member. He has marked diminished appetite, weight loss, looks eczema debilitated cachectic and weak and has a body mass index of 17.9. He has increased cough and congestion. He has had remote history of hemoptysis approximately 4 weeks ago 1. No pleurisy. No hemoptysis. No chest pain. No nausea or vomiting or abdominal pain. He has a marked diminished oral intake in terms of food and he has not met his cardiac requirements over the years. Drinks around 6 beers a day. He also takes oxycodone as and seems to be dependent on oxycodone for many years. In the emergency, the patient was found to be hypoxic and placed on all his of O2 nasal cannula. White cell count was elevated at 16.5. Troponins were negative. BUN was 9 with a creatinine of 0.3. The proBNP level was 1670. The RSV and influenza screen were all negative. The patient had a chest x-ray that showed extensive right upper lobe cavitating pneumonia. CAT scan of the chest was also done that showed an extensive confluent area of airspace disease with central cavitation involving the right upper lobe mainly and extending to the right lower lobe. This infiltrate was extending posterior to the right lower lobe. There is a central cavitation. Left lung is clear and there is underlying emphysema. There was also evidence of lymphadenopathy involving the right paratracheal chain the largest lymph node measuring around 12 mm in size. No exposure to TB. No history of HIV. Patient also checked positive for Covid 19. No previous vaccination. Review of Systems Constitutional: Reports daytime sleepiness, Reports fatigue, Reports weakness Eyes: denies as per HPI, denies blurred vision, denies bulging eye, denies decreased vision, denies diplopia, denies discharge, denies dry eye, denies irritation, denies itching, denies pain, denies photophobia, denies loss of peripheral vision, denies loss of vision, denies tunnel vision/blind spots Ears: deny: decreased hearing, ear discharge, earache, tinnitus Ears, nose, mouth and throat: Reports as per HPI Breasts: absent: as per HPI, gynecomastia Cardiovascular: Reports as per HPI, Reports decreased exercise tolerance, Reports dyspnea on exertion, Reports shortness of breath Respiratory: Reports cough, Reports cough with sputum, Reports dyspnea, Reports wheezing Gastrointestinal: Reports as per HPI Genitourinary: Reports as per HPI Musculoskeletal: Reports as per HPI Musculoskeletal: absent: ankle pain, ankle stiffness, ankle swelling Integumentary: Reports as per HPI Neurological: Reports as per HPI, Reports weakness Psychiatric: Reports as per HPI Endocrine: Reports fatigue Hematologic/Lymphatic: Reports as per HPI Allergic/Immunologic: Reports as per HPI Past Medical History Past Medical History: No Reported History, COPD History of Any Multi-Drug Resistant Organisms: None Reported Past Surgical History: Appendectomy Additional Past Surgical History / Comment(s): knee surgery x 2, shoulder surgery Past Anesthesia/Blood Transfusion Reactions: No Reported Reaction Past Psychological History: No Psychological Hx Reported Smoking Status: Current every day smoker Past Alcohol Use History: Daily Past Drug Use History: Marijuana Medications and Allergies Home Medications Medication Instructions Recorded Confirmed Type No Known Home Medications 02/10/22 02/10/22 History Allergies Allergy/AdvReac Type Severity Reaction Status Date / Time No Known Allergies Allergy Verified 02/10/22 16:06 Physical Exam Vitals: Vital Signs Temp Pulse Pulse Pulse Resp BP BP 02/11/22 10:50 97.9 F 78 22 104/62 02/11/22 08:00 98.0 F 91 80 20 110/55 02/11/22 07:44 02/11/22 03:47 94 20 99/64 02/11/22 02:00 30 H 02/11/22 00:00 103 H 30 H 98/66 02/10/22 21:05 97.3 F L 91 91 24 104/66 02/10/22 19:44 102 H 22 105/72 02/10/22 18:48 92 21 104/70 02/10/22 17:30 98 29 H 100/67 02/10/22 16:33 92 02/10/22 16:22 90 02/10/22 16:21 90 12/17/22 16:13 88 02/10/22 13:59 97.7 F 91 24 93/63 Pulse Ox 02/11/22 10:50 91 L 02/11/22 08:00 89 L 02/11/22 07:44 91 L 02/11/22 03:47 89 L 02/11/22 02:00 02/11/22 00:00 89 L 02/10/22 21:05 93 L 02/10/22 19:44 92 L 02/10/22 18:48 90 L 02/10/22 17:30 95 02/10/22 16:33 02/10/22 16:22 02/10/22 16:21 02/10/22 16:13 02/10/22 13:59 95 Intake and Output 02/10/22 02/11/22 02/11/22 22:59 06:59 14:59 Intake Total 1230 Output Total 500 200 Balance -500 1030 Intake: Intake, IV Titration 850 Amount Levofloxacin 750Mg-D5w 150 Pmx 750 mg In Dextrose/ Water 1 150ml.bag @ 100 mls/hr IVPB Q24H [facility] Rx#: [id number] Piperacillin-Tazobactam 3 100 .375 gm In Sodium Chloride 0.9% 100 ml @ 200 mls/hr IVPB Q8H [facility] Rx#:[id number] Sodium Chloride 0.9% 1, 600 000 ml @ 125 mls/hr IV . Q8H [facility] Rx#:[id number] Oral 380 Output: Urine 500 200 Straight 500 Other: # Bowel Movements 1 Weight 54.885 kg -GENERAL: The patient is alert and oriented x3, not in any acute distress. Well cachectic and the patient carries a body mass index of 17.9. Currently on 4 L O2 nasal cannula. The patient is not in acute respiratory distress HEENT: Pupils are round and equally reacting to light. EOMI. No scleral icterus. No conjunctival pallor. Normocephalic, atraumatic. No pharyngeal erythema. No thyromegaly. CARDIOVASCULAR: S1 and S2 present. No murmurs, rubs, or gallops. -PULMONARY: Diminished breath sounds and decreased air entry on both lung andino, more on the right side, no wheezing or crackles. ABDOMEN: Soft, nontender, nondistended, normoactive bowel sounds. No palpable organomegaly. MUSCULOSKELETAL: No joint swelling or deformity. EXTREMITIES: No cyanosis, clubbing, or pedal edema. NEUROLOGICAL: Gross neurological examination did not reveal any focal deficits. SKIN: No rashes. no petechiae. Results - Laboratory Findings CBC and BMP: 02/11/22 11:33 02/11/22 11:33 PT/INR, D-dimer PT 11.8 sec (9.0-12.0) 02/10/22 14:41 INR 1.1 (<1.2) 02/10/22 14:41 Abnormal lab findings: Abnormal Labs 02/10/22 02/10/22 02/10/22 14:41 14:41 14:41 WBC 16.5 H RBC 3.67 L Hgb 11.0 L Hct 34.7 L Plt Count 482 H Neutrophils # (Manual) 14.85 H Lymphocytes # (Manual) 0.99 L APTT 31.1 H Sodium 130 L Chloride 97 L Carbon Dioxide 33 H Creatinine 0.39 L Calcium 7.2 L Alkaline Phosphatase 191 H Total Protein 5.7 L Albumin 2.1 L Urine Opiates Screen U Benzodiazepines Scrn Urine Cocaine Screen SARS-CoV-2 (PCR) 02/10/22 02/11/22 15:07 03:42 WBC RBC Hgb Hct Plt Count Neutrophils # (Manual) Lymphocytes # (Manual) APTT Sodium Chloride Carbon Dioxide Creatinine Calcium Alkaline Phosphatase Total Protein Albumin Urine Opiates Screen Detected H U Benzodiazepines Scrn Detected H Urine Cocaine Screen Detected H SARS-CoV-2 (PCR) Detected A - Diagnostic Findings Chest x-ray: image reviewed CT scan - chest: image reviewed Assessment and Plan Plan: Acute/subacute/chronic hypoxic respiratory failure, currently on 4 L of oxygen by nasal cannula. The patient has not had any medical evaluation the past and he has ignored his L4 many years and as such is based on oxygenation is not known to us. I suspect that they hypoxemia somewhat subacute Extensive right upper lobe pneumonia with necrotizing changes and cavitation. Rule out gram-negative/anaerobic pneumonia. Malignancy cannot be completely excluded. TB is felt to be less likely. Covid 19 positive, nonvaccinated Acute leukocytosis Multiple substance abuse including marijuana/cocaine and possibly alcoholism Chronic smoker Cachexia with ongoing weight loss with a body mass index is 17.9 COPD with emphysematous changes bilaterally as evidenced on the CAT scan of the chest Plan Obtain sputum Gram stain and culture possible Obtain blood culture Check pro calcitonin level Supplemented with oxygen to maintain a saturation above 90% Continue Zosyn and Levaquin Check TB Quantiferon Legionella urine antigen Inflammatory markers regarding Covid 19 and his been low including an LDH level of 395 Consult infectious disease possible bronchoscopy later stage if no final diagnoses been achieved overall suspicion for TB is low malignancy is possible favor cavitating gram-negative and anaerobic bacterial infection. Swallow evaluation Watch for any signs of delirium tremens Lovenox 40 the prophylaxis We'll follow
[2022-02-11] MEDS: LEVOFLOXACIN 750MG-D5W PMX 750 MG in DEXTROSE/WATER 1 150ML.BAG IVPB SCH (15:46)
[2022-02-11] MEDS: THIAMINE 100 MG/ML 2 ML VIAL IVP SCH (15:47)
[2022-02-11] MEDS: LORazepam 0.5 MG TAB PO PRN (15:47)
[2022-02-11] MEDS ORDERED: ALBUTEROL HFA INHALER INHALATION SCH ×2 (17:00→20:00)
[2022-02-11 17:20] LABS: Chol/HDL Ratio 3.16 Ratio; LDL Cholesterol,Calculated 25.1 mg/dL (0.0-131.0)
[2022-02-11] MEDS: ALBUTEROL HFA INHALER INHALATION PRN (18:05)
[2022-02-11] MEDS: ALBUTEROL HFA INHALER INHALATION SCH (21:27)
[2022-02-11] MEDS: MIRTAZAPINE 15 MG TAB PO SCH (22:14)
[2022-02-12] MEDS: methylPREDNISolone SOD SUCCI 40 MG/ML 1 ML VIAL IV SCH ×4 (00:34→23:07)
[2022-02-12 02:34] LABS: Glucose,Whole Blood 170 mg/dL (70-110)
[2022-02-12 02:42] LABS: ABG Base Excess 4.2 mmol/L; ABG HCO3 33 mmol/L (21-25); ABG Oxygen Saturation 92.9 % (94-97); ABG PO2 87 mmHg (83-108); ABG TCO2 36 mmol/L (19-24); Allen Test Performed? Yes
[2022-02-12] MEDS ORDERED: FUROSEMIDE 10 MG/ML 10 ML VIAL IV STA (02:46)
[2022-02-12 02:50] LABS: ABG PCO2 98 mmHg (35-45); ABG PH 7.14 (7.35-7.45)
[2022-02-12] MEDS: ALBUTEROL HFA INHALER INHALATION PRN (03:01)
--- NOTE | 2022-02-12 03:02 | XR ---
EXAMINATION TYPE: XR chest 1V portable DATE OF EXAM: 02/12/2022 COMPARISON: Yesterday HISTORY: Short of breath TECHNIQUE: FINDINGS: There is dense consolidation right upper lobe with some areas of cavitation. There is coarse intersti tial density in the lungs. Heart size is normal. No definite heart failure. No definite pleural fluid . There are chest leads. IMPRESSION: Cavitating dense consolidation right upper lobe without much change compared to yesterday . Mild pulmonary interstitial edema.
[2022-02-12] MEDS ORDERED: IPRATROPIUM-ALBUTEROL 3 ML NEB INHALATION PRN (03:10)
--- NOTE | 2022-02-12 03:11 | P.EN ---
CODE BLUE Indication: Respiratory failure Arrived on Scene to find: Patient on nonrebreather mask in respiratory distress Initial Rhythm: Sinus tachycardia Code Course: The patient maintained rhythm and respiratory status, thereby CODE BLUE canceled and transitioned to A team. The patient's chart was reviewed and case discussed with the RN. He was admitted with COVID 19 with possible underlying lung malignancy. He was reportedly found with his oxygen off in respiratory arrest with agonal breathing by the RN. Upon arrival, the patient reported shortness of breath along with mild back pain. Vitals upon examination BP 152/100, SpO2 90% on 15 L nonrebreather, temperature 98.1, pulse 122. ABG ordered and reviewed with severe hypercapnia with pCO2 98. Patient had not been receiving any IV fluids since 7 PM on 02/11. Chest x-ray was ordered and was reviewed showing mild pulmonary interstitial edema as well as stable right upper lobe consolidation. Vital signs reviewed General: Ill-appearing frail elderly male, in moderate respiratory distress, appears significantly older than age Cardiovascular: Sinus tachycardia, [no murmur], [positive posterior tibial pulse bilateral], Lungs: Diffuse rhonchi, no wheezing, some accessory muscle use with sternal retractions noted Abdominal: [soft], [ nontender to palpation], [no guarding], [no appreciable organomegaly] Ext: [no gross muscle atrophy], [no edema], [no contractures] Neuro: [no focal neuro deficits], moving all extremities Psych: Oriented to person and place, answering questions appropriately Assessment: Hypercapnic and hypoxic respiratory failure, suspect secondary to COVID 19 with undiagnosed COPD Plan: BiPAP initiated Continue with Solu-Medrol. DuoNeb's ordered. Monitor for signs of worsening respiratory status with possible transfer to MICU if impending failure noted Sitter at bedside as patient attempted to take BiPAP off several times Primary team notified Disposition: Continue stepdown level of care at this time Notified: Primary team notified by RN A Total of 35 minutes of critical care time was spent on the complex care of this patient.
[2022-02-12 03:53] LABS: HCT 34.6 % (39.0-53.0); HGB 10.4 gm/dL (13.0-17.5); Hypochromasia Marked; MCH 30.2 pg (25.0-35.0); MCV 100.8 fL (80.0-100.0); Macrocytosis Slight; Mean Platelet Volume 7.6; Platelet Count 534 k/uL (150-450); RBC 3.44 m/uL (4.30-5.90); RDW 13.4 % (11.5-15.5); WBC 18.6 k/uL (3.8-10.6)
[2022-02-12 04:09] LABS: ALT 27 U/L (4-49); AST 68 U/L (17-59); African American GFR (CKD) >90 (>60 ml/min/1.73 sqM); Alkaline Phosphatase 193 U/L (38-126); Anion Gap 2 mmol/L; Blood Urea Nitrogen 15 mg/dL (9-20); Calcium 7.3 mg/dL (8.4-10.2); Carbon Dioxide 32 mmol/L (22-30); Chloride 102 mmol/L (98-107); Glucose 154 mg/dL (74-99); Magnesium 2.1 mg/dL (1.6-2.3); Non-African American GFR(CKD) >90 (>60 ml/min/1.73 sqM); Potassium 4.5 mmol/L (3.5-5.1); Sodium 136 mmol/L (137-145); Total Bilirubin <0.1 mg/dL (0.2-1.3); Total Protein 5.5 g/dL (6.3-8.2)
[2022-02-12 04:11] LABS: ABG Base Excess 4.9 mmol/L; ABG HCO3 32 mmol/L (21-25); ABG Oxygen Saturation 98.3 % (94-97); ABG PH 7.23 (7.35-7.45); ABG PO2 119 mmHg (83-108); ABG TCO2 35 mmol/L (19-24); Allen Test Performed? Yes
[2022-02-12 04:14] LABS: ABG PCO2 78 mmHg (35-45)
[2022-02-12] MEDS: SODIUM CHLORIDE 0.9% 1,000 ML IV SCH ×2 (04:38→05:04)
[2022-02-12] MEDS: PIPERACILLIN-TAZOBACTAM 3.375 GM in SODIUM CHLORIDE 0.9% 100 ML IVPB SCH ×3 (04:46→17:43)
[2022-02-12 06:13] LABS: Glucose,Whole Blood 142 mg/dL (70-110)
[2022-02-12] MEDS ORDERED: IPRATROPIUM-ALBUTEROL 3 ML NEB INHALATION SCH (08:00)
[2022-02-12] MEDS: ALBUTEROL HFA INHALER INHALATION SCH ×4 (08:31→20:10)
[2022-02-12] MEDS: ASPIRIN 325 MG TAB PO SCH (09:30)
[2022-02-12] MEDS: CHOLECALCIFEROL 25 MCG (1000 IU) TABLET PO SCH (09:30)
[2022-02-12] MEDS: ASCORBIC ACID 500 MG TAB PO SCH (09:30)
[2022-02-12] MEDS: ZINC SULFATE 220 MG CAP PO SCH (09:30)
[2022-02-12] MEDS: ENOXAPARIN 40 MG/0.4 ML SYRINGE SQ SCH (09:36)
[2022-02-12] MEDS: THIAMINE 100 MG/ML 2 ML VIAL IVP SCH (09:36)
[2022-02-12] MEDS: FAMOTIDINE 20 MG/2 ML VIAL IV SCH ×2 (09:36→21:06)
--- NOTE | 2022-02-12 10:07 | XR ---
EXAMINATION TYPE: XR chest 1V DATE OF EXAM: 02/12/2022 CLINICAL HISTORY: Difficulty breathing progress study. TECHNIQUE: Single AP portable upright view of the chest is obtained. COMPARISON: Chest x-ray from earlier today and older studies up to 2 days old FINDINGS: Background chronic emphysematous change bilaterally with right upper lung irregular consol idation having foci of air and right upper lung volume loss are all redemonstrated. Slight increased opacity of the right lower lung corresponds to posterior consolidation and/or atelectasis. Developing retrocardiac opacity left lower lung noted. Cardiac silhouette size stable and upper limits of jude l. Osseous structures are intact. IMPRESSION: Persistent right upper lung irregular consolidation with foci of air and right upper lung volume loss along with less prominent lower lung consolidation and/or atelectasis. No significant ch marcela from prior studies. Correlate clinically. Correlation with old outside x-rays and/or CT would be beneficial. Developing retrocardiac consolidation and/or atelectasis noted.
[2022-02-12 10:22] VITALS: BMI 17.9
[2022-02-12] MEDS: TIOTROPIUM 2.5 MCG INHALER INHALATION SCH (11:55)
--- NOTE | 2022-02-12 11:59 | P.PN ---
Subjective This is a pleasant 61 years old male with no significant past medical history, presents because of difficulty breathing for the last few days Patient brought by his family member at bedside who noticed he is getting worsening dyspnea especially when walking upstairs, Also have occasional coughing and not eating well with decreased appetite over t he last few days, he is making green/yellow phlegm and also complaining of from chest pain in the middle of his chest that increased with coughing and deep inspiration He denies abdominal pain vomiting or diarrhea, no dysuria or urgency, no dizziness or headache, no weakness or numbness. He smokes about half pack per day and he was consulted and agrees to quit but he declined the nicotine patch and he drinks 5-6 beers a day with some liquor and shots, also per family he uses oxycodone for dependence about 30 mg each day. Also patient is generally weak. On admission patient was mildly hypoxic and he has to be placed on 4 L normal saline with saturation improved up to 95%, he is tachypneic 24-29, slightly tachycardic about 88-98 Labs showing leukocytosis of 16.5, hemoglobin 11, platelet count slightly elevated. INR 1.1, sodium 1:30, BUN 9 and creatinine 0.3. Liver enzymes not elevated. Troponin 1 is negative at 0.012. ProBNP is 1760. Influenza and RSV viruses are negative while coronavirus is detected CT of the chest with IV contrast: New confluent right upper lobe airspace opacit y with few scattered air cyst involves the majority of the upper lobe and extends into the lower lobe posteriorly. There is bronchial wall thickening most pronounced in the lower lobes. Scattered groundglass opacity. There is minus like opacity which stands hours as it is away from the remainder of consolidation more inferiorly measure up to 2.7 cm. No pulmonary embolism In the emergency room patient was started on Levaquin and Zosyn Also patient is started on Solu-Medrol 80 mg as well as multiple vitamins 02/11/2022 Patient sits up up in bed eating his breakfast this morning, he says her breathing is better however is on 6 L oxygen via nasal cannula with saturations in the low 90s, he is mildly tachypneic but not in respiratory distress at rest. Urine drug screen is positive for cocaine as well as opioids Labs from this morning are pending TB test is requested Patient reports some depression but denies suicidal or homicidal ideation, psychiatric team were consulted He does not show significant withdrawal symptoms 02/12/2022 Earlier morning patient went into respiratory distress, he was to be placed on BiPAP and he received 1 dose of IV Lasix. Patient was not getting IV fluids ordered for him. Currently he is awake very tired but he is confused he has no insight into his illness he thinks he is better and he wants to go home. We'll try to explain his illness and a question but he does not answer appropriately. I talked to his sister Susana and updated her with his clinical situation and all questions were answered to her satisfaction. She agrees for TPN if it is indicated however patient is able to eat, discussed the case with our dietitian consult and we placed him on ensure for now. Other than patient is still tachypneic and repeat chest x-ray is noted. He remains on Levaquin and Zosyn and IV Solu-Medrol We'll consult infectious disease team Also patient on CIWA protocol and thiamine on the Remeron with no significant sites of alcohol withdrawal Review of systems CONSTITUTIONAL: No fever, no malaise, no fatigue. HEENT: No recent visual problems or hearing problems. Denied any sore throat. CARDIOVASCULAR: No orthopnea, PND, no palpitations, no syncope. PULMONARY: No shortness of breath, no cough, no hemoptysis. GASTROINTESTINAL: No diarrhea, no nausea, no vomiting, no abdominal pain. Normoactive bowel sounds. NEUROLOGICAL: No headaches, no weakness, no numbness. HEMATOLOGICAL: Denies any bleeding or petechiae. GENITOURINARY: Denies any burning micturition, frequency, or urgency. Active Medications Generic Name Dose Route Start Last Admin Trade Name Freq PRN Reason Stop Dose Admin Albuterol Sulfate 2 puff 02/11/22 20:00 02/12/22 11:55 Albuterol Hfa Inhaler INHALATION 2 puff RT-QID SILVINO Administration Albuterol Sulfate 2 puff 02/11/22 18:00 02/12/22 03:01 Albuterol Hfa Inhaler INHALATION 2 puff RT-QID PRN Administration Shortness Of Breath Or Wheezing Ascorbic Acid 1,000 mg 02/11/22 09:00 02/12/22 09:30 Ascorbic Acid 500 Mg Tab PO Not Given DAILY SILVINO Aspirin 325 mg 02/11/22 09:00 02/12/22 09:30 Aspirin 325 Mg Tab PO Not Given DAILY SILVINO Cholecalciferol 50 mcg 02/11/22 09:00 02/12/22 09:30 Cholecalciferol 25 Mcg (1000 Iu) Tablet PO Not Given DAILY SILVINO Enoxaparin Sodium 40 mg 02/11/22 09:00 02/12/22 09:36 Enoxaparin 40 Mg/0.4 Ml Syringe SQ 40 mg DAILY SILVINO Administration Famotidine 20 mg 02/10/22 21:00 02/12/22 09:36 Famotidine 20 Mg/2 Ml Vial IV 20 mg Q12HR SILVINO Administration Piperacillin Sod/Tazobactam 100 mls @ 200 mls/hr 02/11/22 02:00 02/12/22 09: 36 Sod 3.375 gm/ Sodium Chloride IVPB 200 mls/hr Q8H SILVINO Administration Protocol Levofloxacin 750 mg/ IV 150 mls @ 100 mls/hr 02/11/22 18:00 02/11/22 15:46 Solution IVPB 100 mls/hr Q24H SILVINO Administration Protocol Lorazepam 0.5 mg 02/11/22 00:31 02/11/22 15:47 Lorazepam 0.5 Mg Tab PO 0.5 mg Q4HR PRN Administration Ciwa 4 To 5 Lorazepam 1 mg 02/11/22 00:31 Lorazepam 1 Mg Tab PO Q4HR PRN Ciwa 6 To 7 Lorazepam 2 mg 02/11/22 00:31 Lorazepam 1 Mg Tab PO Q2HR PRN Ciwa 10 or greater Lorazepam 2 mg 02/11/22 00:31 Lorazepam 1 Mg Tab PO Q3HR PRN Ciwa 8 To 9 Methylprednisolone Sodium Succinate 40 mg 02/11/22 00:00 02/12/22 09:35 Methylprednisolone Sod Succi 40 Mg/Ml 1 Ml Vial IV 40 mg Q8HR SILVINO Administration Mirtazapine 7.5 mg 02/11/22 21:00 02/11/22 22:14 Mirtazapine 15 Mg Tab PO 7.5 mg HS SILVINO Administration Miscellaneous Information 1 each 02/10/22 15:30 Rx Info: Iv Contrast Was Given 1 Each [facility] [place], [place] MISCELLANE 02/12/22 15:32 DAILY PRN Per Protocol Miscellaneous Information 1 each 02/10/22 15:53 Pneumonia Protocol Utilized 1 Each Misc PO ONCE PRN Per Protocol Thiamine HCl 100 mg 02/11/22 09:00 02/12/22 09:36 Thiamine 100 Mg/Ml 2 Ml Vial IVP 100 mg DAILY SILVINO Administration Tiotropium [place] 2 puff 02/12/22 08:00 02/12/22 11:55 Tiotropium 2.5 Mcg Inhaler INHALATION 2 puff RT-DAILY SILVINO Administration Zinc Sulfate 220 mg 02/11/22 09:00 02/12/22 09:30 Zinc Sulfate 220 Mg Cap PO Not Given DAILY SILVINO Objective - Vital Signs Vital signs: Vital Signs Temp 98 F 02/12/22 00:00 Pulse 109 H 02/12/22 08:00 Resp 22 02/12/22 08:00 BP 110/77 02/12/22 08:00 Pulse Ox 97 02/12/22 08:31 FiO2 100 02/12/22 06:56 Intake & Output 02/11/22 02/12/22 02/12/22 18:59 06:59 18:59 Intake Total 3440 Output Total 200 Balance 3240 Weight 54.885 kg Intake: Intake, IV Titration 2100 Amount Levofloxacin 750Mg-D5w 300 Pmx 750 mg In Dextrose/ Water 1 150ml.bag @ 100 mls/hr IVPB Q24H S[facility]INO Rx#: [id number] Piperacillin-Tazobactam 3 200 .375 gm In Sodium Chloride 0.9% 100 ml @ 200 mls/hr IVPB Q8H [facility] Rx#:[id number] Sodium Chloride 0.9% 1, 1600 000 ml @ 125 mls/hr IV . Q8H [facility] Rx#:[id number] Oral 1340 Output: Urine 200 Other: Voiding Method Bedside Commode Diaper # Voids 1 # Bowel Movements 1 1 - Exam -GENERAL: The patient is alert and oriented x3, not in any acute distress. Well cachectic HEENT: Pupils are round and equally reacting to light. EOMI. No scleral icterus. No conjunctival pallor. Normocephalic, atraumatic. No pharyngeal erythema. No thyromegaly. CARDIOVASCULAR: S1 and S2 present. No murmurs, rubs, or gallops. -PULMONARY: Diminished breath sounds and decreased air entry on both lung andino, more on the right side, no wheezing or crackles. ABDOMEN: Soft, nontender, nondistended, normoactive bowel sounds. No palpable organomegaly. MUSCULOSKELETAL: No joint swelling or deformity. EXTREMITIES: No cyanosis, clubbing, or pedal edema. NEUROLOGICAL: Gross neurological examination did not reveal any focal deficits. SKIN: No rashes. no petechiae. - Labs CBC & Chem 7: 02/12/22 02:59 02/12/22 02:59 Labs: Abnormal Lab Results - Last 24 Hours (Table) 02/10/22 02/11/22 02/11/22 Range/Units 19:44 11:33 11:33 WBC 24.8 H (3.8-10.6) k/uL RBC 3.59 L (4.30-5.90) m/uL Hgb 10.5 L (13.0-17.5) gm/dL Hct 35.2 L (39.0-53.0) % MCV (80.0-100.0) fL MCHC 29.7 L (31.0-37.0) g/dL Plt Count 483 H (150-450) k/uL Neutrophils # 23.3 H (1.3-7.7) k/uL ABG pH (7.35-7.45) ABG pCO2 (35-45) mmHg ABG pO2 (83-108) mmHg ABG HCO3 (21-25) mmol/L ABG Total CO2 (19-24) mmol/L ABG O2 Saturation (94-97) % Sodium 134 L (137-145) mmol/L Carbon Dioxide (22-30) mmol/L Creatinine 0.42 L (0.66-1.25) mg/dL Glucose 183 H (74-99) mg/dL POC Glucose (mg/dL) (70-110) mg/dL Calcium 7.4 L (8.4-10.2) mg/dL Total Bilirubin (0.2-1.3) mg/dL AST (17-59) U/L Alkaline Phosphatase (38-126) U/L C-Reactive Protein 18.4 H (<1.0) mg/dL Total Protein (6.3-8.2) g/dL Albumin (3.5-5.0) g/dL HDL Cholesterol 20.90 L (40.00-60.00) mg/dL Procalcitonin 0.53 H (0.02-0.09) ng/mL 02/12/22 02/12/22 02/12/22 Range/Units 02:33 02:38 02:59 WBC 18.6 H (3.8-10.6) k/uL RBC 3.44 L (4.30-5.90) m/uL Hgb 10.4 L (13.0-17.5) gm/dL Hct 34.6 L (39.0-53.0) % MCV 100.8 H (80.0-100.0) fL MCHC 30.0 L (31.0-37.0) g/dL Plt Count 534 H (150-450) k/uL Neutrophils # (1.3-7.7) k/uL ABG pH 7.14 L* (7.35-7.45) ABG pCO2 98 H* (35-45) mmHg ABG pO2 (83-108) mmHg ABG HCO3 33 H (21-25) mmol/L ABG Total CO2 36 H (19-24) mmol/L ABG O2 Saturation 92.9 L (94-97) % Sodium (137-145) mmol/L Carbon Dioxide (22-30) mmol/L Creatinine (0.66-1.25) mg/dL Glucose (74-99) mg/dL POC Glucose (mg/dL) 170 H (70-110) mg/dL Calcium (8.4-10.2) mg/dL Total Bilirubin (0.2-1.3) mg/dL AST (17-59) U/L Alkaline Phosphatase (38-126) U/L C-Reactive Protein (<1.0) mg/dL Total Protein (6.3-8.2) g/dL Albumin (3.5-5.0) g/dL HDL Cholesterol (40.00-60.00) mg/dL Procalcitonin (0.02-0.09) ng/mL 02/12/22 02/12/22 02/12/22 Range/Units 02:59 04:02 06:12 WBC (3.8-10.6) k/uL RBC (4.30-5.90) m/uL Hgb (13.0-17.5) gm/dL Hct (39.0-53.0) % MCV (80.0-100.0) fL MCHC (31.0-37.0) g/dL Plt Count (150-450) k/uL Neutrophils # (1.3-7.7) k/uL ABG pH 7.23 L (7.35-7.45) ABG pCO2 78 H* (35-45) mmHg ABG pO2 119 H (83-108) mmHg ABG HCO3 32 H (21-25) mmol/L ABG Total CO2 35 H (19-24) mmol/L ABG O2 Saturation 98.3 H (94-97) % Sodium 136 L (137-145) mmol/L Carbon Dioxide 32 H (22-30) mmol/L Creatinine 0.39 L (0.66-1.25) mg/dL Glucose 154 H (74-99) mg/dL POC Glucose (mg/dL) 142 H (70-110) mg/dL Calcium 7.3 L (8.4-10.2) mg/dL Total Bilirubin <0.1 L (0.2-1.3) mg/dL AST 68 H (17-59) U/L Alkaline Phosphatase 193 H (38-126) U/L C-Reactive Protein (<1.0) mg/dL Total Protein 5.5 L (6.3-8.2) g/dL Albumin 2.0 L (3.5-5.0) g/dL HDL Cholesterol (40.00-60.00) mg/dL Procalcitonin (0.02-0.09) ng/mL Microbiology - Last 24 Hours (Table) 02/10/22 14:45 Blood Culture - Preliminary Blood No Growth after 24 hours 02/10/22 16:35 Blood Culture - Preliminary Blood No Growth after 24 hours 02/10/22 16:20 Blood Culture - Preliminary Blood No Growth after 24 hours Assessment and Plan Assessment: Right upper lobe consolidation involving the majority of the upper lobe and acceptance into lower lobe posteriorly suspicious for pneumonia, rule out aspiration pneumonia Right lung mass 2.7 cm Acute COPD exacerbation Acute hypoxic respiratory failure Possible Sepsis with leukocytosis, tachycardia and tachypnea Nicotine dependence Moderate to severe calories and protein malnutrition Alcohol use disorder Opioid dependence Plan: Continue with a breathing treatment and bronchodilator Continue with antibiotic, currently on Zosynand Levaquin. ID team consult Continue with oxygen treatment, currently on nonrebreather Pulmonary team consult CIWA protocol and thiamine Nutrition consult and ensure Check TB test Labs and medication were reviewed.. Continue same treatment. Continue with symptomatic treatment. Resume home medication. Monitor lytes and vitals. DVT and GI prophylaxis. Further recommendations as per clinical course of the patient DVT prophylaxis: Subcutaneous heparin GI Prophylaxis: Pepcid PT/OT: Pending Prognosis is guarded Discussed with staff and temp CODE STATUS discussed with sister she recommends intubation if indicated and full code
--- NOTE | 2022-02-12 13:50 | P.PN ---
Progress Note - Text Progress Note Date: 02/12/22 Interval History: Patient was seen at bedside but was noted to be somnolent on rebreather mask. History could not be obtained by the patient at this time. As per chart review and discussion with patient's nurse, earlier this morning, the patient went into respiratory distress and required BiPAP placement. Currently, the patient is being treated for possible aspiration pneumonia, COPD exacerbation, hypoxic respiratory failure, and possible sepsis. In regards to psychiatric issues, no acute issues were noted by the staff and the patient's nurse at this time. The patient did take his scheduled Remeron last night. Mental Status Exam: General Appearance: Patient appears to be somnolent, of thin and frail build, and is currently breathing through nonrebreather mask. Behavior: Patient is lying down in bed without any agitated behavior. Speech: Patient's speech could not be assessed today. Mood/Affect: Mood could not be assessed. Affect is somnolent. Suicidality/Homicidality: Could not be assessed today Perceptions: Could not be assessed today Though content/process: Could not be assessed today Memory and concentration: Could not be assessed today Judgment and insight:Could not be assessed today Assessment Right upper lobe consolidation Acute COPD exacerbation Acute hypoxic respiratory failure Possible Sepsis with leukocytosis, tachycardia and tachypnea Nicotine dependence Moderate to severe calories and protein malnutrition Alcohol use disorder Opioid dependence Plan: -Continue your medical management. -At this time patient DOES NOT meet criteria for inpatient psychiatric admission. -Medications: Continue Remeron 7.5 mg by mouth at bedtime for mood, sleep, and appetite. -CIWA protocol with PRN Ativan for alcohol withdrawal. Continue to monitor vital signs. -Psychiatry will loosely follow at this time and reassess when patient is more capable of engaging in the psychiatric interview. Psychiatric pathology is currently not a priority compared to the patient's cardiac and respiratory health. Please contact us with any questions or concerns. Vital Signs Temp 97.0 F L 02/12/22 12:00 Pulse 100 02/12/22 12:00 Resp 22 02/12/22 12:00 BP 103/65 02/12/22 12:00 Pulse Ox 98 02/12/22 12:00 FiO2 100 02/12/22 06:56 Intake & Output 02/11/22 02/12/22 02/12/22 18:59 06:59 18:59 Intake Total 3440 Output Total 200 Balance 3240 Weight 54.885 kg Intake: Intake, IV Titration 2100 Amount Levofloxacin 750Mg-D5w 300 Pmx 750 mg In Dextrose/ Water 1 150ml.bag @ 100 mls/hr IVPB Q24H [facility] Rx#: [id number] Piperacillin-Tazobactam 3 200 .375 gm In Sodium Chloride 0.9% 100 ml @ 200 mls/hr IVPB Q8H SILVINO Rx#:[id number] Sodium Chloride 0.9% 1, 1600 000 ml @ 125 mls/hr IV . Q8H [facility] Rx#:[id number] Oral 1340 Output: Urine 200 Other: Voiding Method Bedside Commode Diaper # Voids 1 2 # Bowel Movements 1 1 Laboratory Results - Last 24 Hours 02/10/22 02/10/22 02/11/22 19:44 19:44 11:33 WBC RBC Hgb Hct MCV MCH MCHC RDW Plt Count MPV Hypochromasia Macrocytosis Sample Site ABG pH ABG pCO2 ABG pO2 ABG HCO3 ABG Total CO2 ABG O2 Saturation ABG Base Excess Prasad Test FiO2 Sodium Potassium Chloride Carbon Dioxide Anion Gap BUN Creatinine Est GFR (CKD-EPI)AfAm Est GFR (CKD-EPI)NonAf Glucose POC Glucose (mg/dL) POC Glu Map Mounter ID Plasma Lactic Acid Carlos Calcium Magnesium Total Bilirubin AST ALT Alkaline Phosphatase Troponin I NT-Pro-B Natriuret Pep Total Protein Albumin Triglycerides 100.00 Cholesterol 66.00 LDL Cholesterol, Calc 25.1 VLDL Cholesterol, Calc 20.00 HDL Cholesterol 20.90 L Cholesterol/HDL Ratio 3.16 Procalcitonin 0.53 H Legionella Source Urine Urine Legionella Ag Negative 02/12/22 02/12/22 02/12/22 02:33 02:38 02:59 WBC 18.6 H RBC 3.44 L Hgb 10.4 L Hct 34.6 L MCV 100.8 H MCH 30.2 MCHC 30.0 L RDW 13.4 Plt Count 534 H MPV 7.6 Hypochromasia Marked Macrocytosis Slight Sample Site Right Radial ABG pH 7.14 L* ABG pCO2 98 H* ABG pO2 87 ABG HCO3 33 H ABG Total CO2 36 H ABG O2 Saturation 92.9 L ABG Base Excess 4.2 Prasad Test Yes FiO2 100 Sodium Potassium Chloride Carbon Dioxide Anion Gap BUN Creatinine Est GFR (CKD-EPI)AfAm Est GFR (CKD-EPI)NonAf Glucose POC Glucose (mg/dL) 170 H POC Glu Map Mounter ID Mix, Latrice Plasma Lactic Acid Carlos Calcium Magnesium Total Bilirubin AST ALT Alkaline Phosphatase Troponin I NT-Pro-B Natriuret Pep Total Protein Albumin Triglycerides Cholesterol LDL Cholesterol, Calc VLDL Cholesterol, Calc HDL Cholesterol Cholesterol/HDL Ratio Procalcitonin Legionella Source Urine Legionella Ag 02/12/22 02/12/22 02/12/22 02:59 02:59 02:59 WBC RBC Hgb Hct MCV MCH MCHC RDW Plt Count MPV Hypochromasia Macrocytosis Sample Site ABG pH ABG pCO2 ABG pO2 ABG HCO3 ABG Total CO2 ABG O2 Saturation ABG Base Excess Prasad Test FiO2 Sodium 136 L Potassium 4.5 Chloride 102 Carbon Dioxide 32 H Anion Gap 2 BUN 15 Creatinine 0.39 L Est GFR (CKD-EPI)AfAm >90 Est GFR (CKD-EPI)NonAf >90 Glucose 154 H POC Glucose (mg/dL) POC Glu Map Mounter ID Plasma Lactic Acid Carlos 1.1 Calcium 7.3 L Magnesium 2.1 Total Bilirubin <0.1 L AST 68 H ALT 27 Alkaline Phosphatase 193 H Troponin I <0.012 NT-Pro-B Natriuret Pep Total Protein 5.5 L Albumin 2.0 L Triglycerides Cholesterol LDL Cholesterol, Calc VLDL Cholesterol, Calc HDL Cholesterol Cholesterol/HDL Ratio Procalcitonin Legionella Source Urine Legionella Ag 02/12/22 02/12/22 02/12/22 02:59 04:02 06:12 WBC RBC Hgb Hct MCV MCH MCHC RDW Plt Count MPV Hypochromasia Macrocytosis Sample Site rbrach ABG pH 7.23 L ABG pCO2 78 H* ABG pO2 119 H ABG HCO3 32 H ABG Total CO2 35 H ABG O2 Saturation 98.3 H ABG Base Excess 4.9 Prasad Test Yes FiO2 100 Sodium Potassium Chloride Carbon Dioxide Anion Gap BUN Creatinine Est GFR (CKD-EPI)AfAm Est GFR (CKD-EPI)NonAf Glucose POC Glucose (mg/dL) 142 H POC Glu Map Mounter ID Chandni, Annette Plasma Lactic Acid Carlos Calcium Magnesium Total Bilirubin AST ALT Alkaline Phosphatase Troponin I NT-Pro-B Natriuret Pep 1520 Total Protein Albumin Triglycerides Cholesterol LDL Cholesterol, Calc VLDL Cholesterol, Calc HDL Cholesterol Cholesterol/HDL Ratio Procalcitonin Legionella Source Urine Legionella Ag
--- NOTE | 2022-02-12 14:09 | P.PN ---
Subjective Progress Note Date: 02/12/22 61-year-old male patient, currently hospitalized for 4 and extensive pneumonia involving the right lung. The patient is a very poor historian. The patient has history of smoking, substance abuse in the form of marijuana and cocaine in addition to call drinking. He has done no medical follow-up over the years and he has essentially ignored his health and his condition has been progressively getting worse to the point where the patient started having worsening shortness of breath and was brought into the hospital for further evaluation. He was brought in by family member. He has marked diminished appetite, weight loss, looks eczema debilitated cachectic and weak and has a body mass index of 17.9. He has increased cough and congestion. He has had remote history of hemoptysis approximately 4 weeks ago 1. No pleurisy. No hemoptysis. No chest pain. No nausea or vomiting or abdominal pain. He has a marked diminished oral intake in terms of food and he has not met his cardiac requirements over the years. Drinks around 6 beers a day. He also takes oxycodone as and seems to be depende nt on oxycodone for many years. In the emergency, the patient was found to be hypoxic and placed on all his of O2 nasal cannula. White cell count was elevated at 16.5. Troponins were negative. BUN was 9 with a creatinine of 0.3. The proBNP level was 1670. The RSV and influenza screen were all negative. The patient had a chest x-ray that showed extensive right upper lobe cavitating pneumonia. CAT scan of the chest was also done that showed an extensive confluent area of airspace disease with central cavitation involving the right upper lobe mainly and extending to the right lower lobe. This infiltrate was extending posterior to the right lower lobe. There is a central cavitation. L eft lung is clear and there is underlying emphysema. There was also evidence of lymphadenopathy involving the right paratracheal chain the largest lymph node measuring around 12 mm in size. No exposure to TB. No history of HIV. Patient also checked positive for Covid 19. No previous vaccination. The patient is seen today 02/12/2022 in follow-up on the selective care unit. He is currently sitting up in bed. Awake and alert in no acute distress. He remains in mild respiratory distress. Approximately 3:00 this morning the patient had a near respiratory arrest staff found him without his oxygen and cyanotic. Arterial blood gases revealed a PaO2 of 87, pCO2 98 and a pH of 7.1 400% FiO2. Follow-up blood gases revealed a PaO2 of 119. PCO2 of 78 and a pH of 7.23. He was emergently placed on BiPAP and did recover. He required a health safety coordinator to keep his mask on. He is currently on 15 L nonrebreather mask. He is afebrile. Hemodynamically stable. He is quite angry and agitated. He keeps insisting he wants to go home. Chest x-ray continues to show persistent right upper lung irregular consolidation with foci of air and right upper lung volume loss with less prominent lower lung consolidation and/or atelectasis. No significant change. Computed tomography scan of the chest revealed possible cavitation in the setting of necrotizing pneumonia. There is enlarged mediastin al lymph nodes. Infectious versus underlying mass. No pulmonary embolism. Blood cultures revealed no growth. White count 18.6. Hemoglobin 10.4. Sodium 136. Potassium 4.5. BUN 15. Creatinine 0.39. Glucose 154. C-reactive protein 18.4. LDH 395. ProBNP 1520. He is continued on albuterol, IV Solu- Medrol, Spiriva. Antibiotics in the form of Zosyn and Levaquin. He is receiving Lovenox for DVT prophylaxis. Vitamin supplements. Remains in the [facility] protocol. Objective - Vital Signs Vital signs: Vital Signs Temp 97.0 F L 02/12/22 12:00 Pulse 100 02/12/22 12:00 Resp 22 02/12/22 12:00 BP 103/65 02/12/22 12:00 Pulse Ox 98 02/12/22 12:00 FiO2 100 02/12/22 06:56 Intake & Output 02/11/22 02/12/22 02/12/22 18:59 06:59 18:59 Intake Total 3440 Output Total 200 Balance 3240 Weight 54.885 kg Intake: Intake, IV Titration 2100 Amount Levofloxacin 750Mg-D5w 300 Pmx 750 mg In Dextrose/ Water 1 150ml.bag @ 100 mls/hr IVPB Q24H [facility] Rx#: [id number] Piperacillin-Tazobactam 3 200 .375 gm In Sodium Chloride 0.9% 100 ml @ 200 mls/hr IVPB Q8H [facility] Rx#:[id number] Sodium Chloride 0.9% 1, 1600 000 ml @ 125 mls/hr IV . Q8H [facility] Rx#:[id number] Oral 1340 Output: Urine 200 Other: Voiding Method Bedside Commode Diaper # Voids 1 2 # Bowel Movements 1 1 - Exam -GENERAL: The patient is a 61-year-old male patient, currently not in any acute distress. Frail, cachectic and the patient carries a body mass index of 17.9. Currently on 15 L O2 nonrebreather mask. HEENT: Pupils are round and equally reacting to light. EOMI. No scleral icterus. No conjunctival pallor. Normocephalic, atraumatic. No pharyngeal erythema. No thyromegaly. CARDIOVASCULAR: S1 and S2 present. No murmurs, rubs, or gallops. -PULMONARY: Diminished breath sounds and decreased air entry on both lung andino, more on the right side, no wheezing or crackles. ABDOMEN: Soft, nontender, nondistended, normoactive bowel sounds. No palpable organomegaly. MUSCULOSKELETAL: No joint swelling or deformity. EXTREMITIES: No cyanosis, clubbing, or pedal edema. NEUROLOGICAL: Gross neurological examination did not reveal any focal deficits. SKIN: No rashes. no petechiae. - Labs CBC & Chem 7: 02/12/22 02:59 02/12/22 02:59 Labs: Abnormal Lab Results - Last 24 Hours (Table) 02/10/22 02/11/22 02/12/22 Range/Units 19:44 11:33 02:33 WBC (3.8-10.6) k/uL RBC (4.30-5.90) m/uL Hgb (13.0-17.5) gm/dL Hct (39.0-53.0) % MCV (80.0-100.0) fL MCHC (31.0-37.0) g/dL Plt Count (150-450) k/uL ABG pH (7.35-7.45) ABG pCO2 (35-45) mmHg ABG pO2 (83-108) mmHg ABG HCO3 (21-25) mmol/L ABG Total CO2 (19-24) mmol/L ABG O2 Saturation (94-97) % Sodium (137-145) mmol/L Carbon Dioxide (22-30) mmol/L Creatinine (0.66-1.25) mg/dL Glucose (74-99) mg/dL POC Glucose (mg/dL) 170 H (70-110) mg/dL Calcium (8.4-10.2) mg/dL Total Bilirubin (0.2-1.3) mg/dL AST (17-59) U/L Alkaline Phosphatase (38-126) U/L Total Protein (6.3-8.2) g/dL Albumin (3.5-5.0) g/dL HDL Cholesterol 20.90 L (40.00-60.00) mg/dL Procalcitonin 0.53 H (0.02-0.09) ng/mL 02/12/22 02/12/22 02/12/22 Range/Units 02:38 02:59 02:59 WBC 18.6 H (3.8-10.6) k/uL RBC 3.44 L (4.30-5.90) m/uL Hgb 10.4 L (13.0-17.5) gm/dL Hct 34.6 L (39.0-53.0) % MCV 100.8 H (80.0-100.0) fL MCHC 30.0 L (31.0-37.0) g/dL Plt Count 534 H (150-450) k/uL ABG pH 7.14 L* (7.35-7.45) ABG pCO2 98 H* (35-45) mmHg ABG pO2 (83-108) mmHg ABG HCO3 33 H (21-25) mmol/L ABG Total CO2 36 H (19-24) mmol/L ABG O2 Saturation 92.9 L (94-97) % Sodium 136 L (137-145) mmol/L Carbon Dioxide 32 H (22-30) mmol/L Creatinine 0.39 L (0.66-1.25) mg/dL Glucose 154 H (74-99) mg/dL POC Glucose (mg/dL) (70-110) mg/dL Calcium 7.3 L (8.4-10.2) mg/dL Total Bilirubin <0.1 L (0.2-1.3) mg/dL AST 68 H (17-59) U/L Alkaline Phosphatase 193 H (38-126) U/L Total Protein 5.5 L (6.3-8.2) g/dL Albumin 2.0 L (3.5-5.0) g/dL HDL Cholesterol (40.00-60.00) mg/dL Procalcitonin (0.02-0.09) ng/mL 02/12/22 02/12/22 Range/Units 04:02 06:12 WBC (3.8-10.6) k/uL RBC (4.30-5.90) m/uL Hgb (13.0-17.5) gm/dL Hct (39.0-53.0) % MCV (80.0-100.0) fL MCHC (31.0-37.0) g/dL Plt Count (150-450) k/uL ABG pH 7.23 L (7.35-7.45) ABG pCO2 78 H* (35-45) mmHg ABG pO2 119 H (83-108) mmHg ABG HCO3 32 H (21-25) mmol/L ABG Total CO2 35 H (19-24) mmol/L ABG O2 Saturation 98.3 H (94-97) % Sodium (137-145) mmol/L Carbon Dioxide (22-30) mmol/L Creatinine (0.66-1.25) mg/dL Glucose (74-99) mg/dL POC Glucose (mg/dL) 142 H (70-110) mg/dL Calcium (8.4-10.2) mg/dL Total Bilirubin (0.2-1.3) mg/dL AST (17-59) U/L Alkaline Phosphatase (38-126) U/L Total Protein (6.3-8.2) g/dL Albumin (3.5-5.0) g/dL HDL Cholesterol (40.00-60.00) mg/dL Procalcitonin (0.02-0.09) ng/mL Microbiology - Last 24 Hours (Table) 02/10/22 14:45 Blood Culture - Preliminary Blood No Growth after 24 hours 02/10/22 16:35 Blood Culture - Preliminary Blood No Growth after 24 hours 02/10/22 16:20 Blood Culture - Preliminary Blood No Growth after 24 hours Assessment and Plan Assessment: Acute/subacute/chronic hypoxic respiratory failure, currently on 15 L of oxygen by nonrebreather. The patient has not had any medical evaluation the past and he has ignored his health for many years, is not known to us. We suspect that they hypoxemia somewhat subacute. The patient did require rapid response approximately 3:00 this morning after he had his oxygen off and he is found cyanotic. Initially required BiPAP support currently on 15 L via nonrebreather mask Extensive right upper lobe pneumonia with necrotizing changes and cavitation. Rule out gram-negative/anaerobic pneumonia. Malignancy cannot be completely excluded. TB is felt to be less likely. Pro-calcitonin 0.53. Legionella screen negative. Currently on Zosyn and Levaquin. Covid 19 positive, nonvaccinated Acute leukocytosis Multiple substance abuse including marijuana/cocaine and possibly alcoholism Chronic smoker Cachexia with ongoing weight loss with a body mass index is 17.9 COPD with emphysematous changes bilaterally as evidenced on the CAT scan of the chest Plan: The patient was seen and evaluated CAT scan, chest x-ray, medications and labs reviewed Continue Zosyn and Levaquin Continue bronchodilators, steroids Psychiatric evaluation appreciated Remains in the [facility] protocol Prognosis is guarded We will continue to follow and make further recommendations based on his clinical status I have personally seen and examined the patient, performed the documentation and the assessment and plan as written. Number of minutes spent on the visit: 10.
[2022-02-12] MEDS ORDERED: LIDOCAINE 1% INJ 10MG/ML (5 ML VIAL-PF) SQ ONE (14:34)
--- NOTE | 2022-02-12 15:10 | XR ---
EXAMINATION TYPE: XR chest 1V portable DATE OF EXAM: 02/12/2022 CLINICAL HISTORY: PICC line placement. TECHNIQUE: Single AP portable semiupright view of the chest is obtained. COMPARISON: Chest x-ray from earlier today FINDINGS: There is new right-sided PICC line coiled likely projecting towards the left brachiocephal ic vein near the confluence. Background chronic emphysematous change bilaterally with right upper lung irregular consolidation hav ing foci of air and right upper lung volume loss are all redemonstrated. Slight increased opacity of the right lower lung is redemonstrated. Patchy retrocardiac opacity left lower lung redemonstrated. C ardiac silhouette size stable and upper limits of normal. Osseous structures are intact. IMPRESSION: As above.
[2022-02-12] MEDS: LEVOFLOXACIN 750MG-D5W PMX 750 MG in DEXTROSE/WATER 1 150ML.BAG IVPB SCH (15:11)
--- NOTE | 2022-02-12 15:12 | XR ---
EXAMINATION TYPE: XR chest 1V portable DATE OF EXAM: 02/12/2022 CLINICAL HISTORY: PICC line repositioning. TECHNIQUE: Single AP portable semiupright view of the chest is obtained. COMPARISON: Chest x-ray from earlier today. FINDINGS: Improved appearance of PICC line after repositioning with tip in SVC. No pneumothorax is e vident. Other findings unchanged from x-ray studies earlier today. IMPRESSION: As above.
--- NOTE | 2022-02-12 15:18 | IR ---
PICC LINE PLACEMENT: HISTORY: Infection requiring long-term antibiotic therapy PROCEDURE: Ultrasound guidance of PICC line placement. NUT CRACKER: Dr. Moreno. COMPLICATIONS: None ANESTHESIA: 1. 1% Lidocaine locally. FINDINGS/TECHNIQUE: The procedure was explained to the patient. The risks, complications, benefits and alternatives were discussed and any questions were answered. Informed consent was obtained. The patient was placed supine on the fluoroscopic table and prepped and draped in the usual sterile [facility] ion. Utilizing a 21 gauge needle and sonographic guidance, access in the right basilic vein was ach ieved and there is placement of a 0.018 guidewire. The vein is patent. A 5-F. sheath was placed ove r the guidewire. The guidewire and dilator were removed and a 5-F. Double lumen PICC line was placed through the sheath with the chest x-ray confirming the tip at the level of the SVC. The sheath was removed, the catheter was flushed and sutured into position. The patient was stable throughout the p rocedure and remained stable upon discharge from the Department of Radiology. The vein puncture was patent under ultrasound. A curran scale image was obtained to document patency of the vein punctured. All elements of the maximal barrier technique were utilized. IMPRESSION: 1. Successful PICC line placement under ultrasound performed bedside.
[2022-02-12 16:12] LABS: Phosphorus 3.3 mg/dL (2.5-4.5)
[2022-02-12 16:17] LABS: Ionized Calcium 4.8 mg/dL (4.5-5.3)
[2022-02-12] MEDS: LORazepam 0.5 MG TAB PO PRN (16:23)
[2022-02-12] MEDS ORDERED: MVI, ADULT NO.4 WITH VIT K 10 ML, TRACE (CONC-1ML/DOSE) 1 ML in AMINO ACID 5%-D20W+LYTE... IV ONE ×3 (20:00)
[2022-02-12] MEDS ORDERED: FAT EMULSION 20% 250 ML in EMPTY BAG 1 BAG IV SCH (20:00)
[2022-02-12] MEDS: MIRTAZAPINE 15 MG TAB PO SCH (21:05)
--- NOTE | 2022-02-12 22:20 | P.CONS ---
History of Present Illness - Reason for Consult Consult date: 02/12/22 Pneumonia with a cavity Requesting physician: Brando E Sheet - Chief Complaint Increasing shortness of breath x days - History of Present Illness Patient is a 61-year-old male with a past medical history sniffing and for smoking substance abuse patient was brought into the ER 2 days ago for evaluation of increasing shortness of breath and a cough that been getting worse for the last 2 weeks patient did have a moderate intensity cough and has been bringing up some green to yellow sputum patient denies having any hemoptysis denies any nausea no vomiting no abdominal pain or any diarrhea patient on presentation to the hospital was afebrile and no fever has been recorded subsequently patient did have white count of 16.5 which is currently 18.6 today however was as high as 24.8 yesterday with a left shift patient did have a normal creatinine AST mildly elevated procalcitonin is only 0.53 urine drug screen was positive for opiates benzos and cocaine patient did have positive COVID test influenza Legionella and RSV negative patient did have a chest x-ray right upper lobe airspace opacity concerning for mass and or pneumonia patient also have a CT of the chest extensive right-sided consolidation and concern for possible cavitation no PE patient is currently being treated with the Zosyn and Levaquin infectious disease was consulted for further management of antibiotic therapy most information has been obtained from review the chart as the patient himself is not a very good historian Review of Systems Positive points has been mentioned in HPI complete review could not be obtained because of his underlying mental status Past Medical History Past Medical History: No Reported History, COPD History of Any Multi-Drug Resistant Organisms: None Reported Past Surgical History: Appendectomy Additional Past Surgical History / Comment(s): knee surgery x 2, shoulder surgery Past Anesthesia/Blood Transfusion Reactions: No Reported Reaction Past Psychological History: No Psychological Hx Reported Smoking Status: Current every day smoker Past Alcohol Use History: Daily Past Drug Use History: Marijuana Medications and Allergies Home Medications Medication Instructions Recorded Confirmed Type Albuterol Inhaler [Ventolin Hfa 2 puff INHALATION RT-QID #1 each 02/15/22 Rx Inhaler] Amoxic-Pot Clav 875-125Mg 1 tab PO BID 10 Days #20 tab 02/15/22 Rx [Augmentin 875-125] Ascorbic Acid [Vitamin C] 1,000 mg PO DAILY #60 tab 02/15/22 Rx Cholecalciferol [Vitamin D3 (25 50 mcg PO DAILY #60 tab 02/15/22 Rx Mcg = 1000 Iu)] Famotidine [Pepcid] 20 mg PO BID #60 tablet 02/15/22 Rx Linezolid [Zyvox] 600 mg PO Q12H 10 Days #20 tab 02/15/22 Rx Thiamine [Vitamin B-1] 100 mg PO DAILY #30 tablet 02/15/22 Rx Zinc Sulfate [Orazinc] 220 mg PO DAILY #30 cap 02/15/22 Rx predniSONE 10 mg PO DIRECTED #60 tab 02/15/22 Rx Allergies Allergy/AdvReac Type Severity Reaction Status Date / Time No Known Allergies Allergy Verified 02/10/22 16:06 Physical Exam Vitals: Vital Signs Temp Pulse Pulse Resp BP Pulse Ox FiO2 02/12/22 08:31 97 02/12/22 06:56 115 H 30 H 100 100 02/12/22 03:51 126 H 40 H 126/75 100 100 02/12/22 03:02 40 02/12/22 00:00 98 F 99 16 120/78 95 02/11/22 20:00 98.7 F 103 H 14 129/79 92 L 02/11/22 16:00 97.8 F 108 H 24 114/74 89 L 02/11/22 13:32 78 80 22 Intake and Output 02/11/22 02/12/22 02/12/22 22:59 06:59 14:59 Intake Total 2030 Balance 2030 Intake: Intake, IV Titration 1250 Amount Levofloxacin 750Mg-D5w 150 Pmx 750 mg In Dextrose/ Water 1 150ml.bag @ 100 mls/hr IVPB Q24H [facility] Rx#: [id number] Piperacillin-Tazobactam 3 100 .375 gm In Sodium Chloride 0.9% 100 ml @ 200 mls/hr IVPB Q8H [facility] Rx#:[id number] Sodium Chloride 0.9% 1, 1000 000 ml @ 125 mls/hr IV . Q8H [facility] Rx#:[id number] Oral 780 Other: Voiding Method Bedside Commode Bedside Commode Diaper # Voids 1 # Bowel Movements 1 Weight 54.885 kg GENERAL DESCRIPTION: Middle-aged male lying in bed, no distress. No tachypnea or accessory muscle of respiration use. HEENT: Shows Pallor , no scleral icterus. Oral mucous membrane is dry. No pharyngeal erythema or thrush NECK: Trachea central, no thyromegaly. LUNGS: Unlabored breathing. Coarse breath sounds bilaterally HEART: S1, S2, regular rate and rhythm. No loud murmur ABDOMEN: Soft, no tenderness , guarding or rigidity, no organomegaly EXTREMITIES: No edema of feet. SKIN: No rash, no masses palpable. NEUROLOGICAL: The patient is awake, alert, oriented x3, mood and affect normal. Results CBC & Chem 7: 02/12/22 02:59 02/15/22 07:48 Labs: Abnormal Lab Results - Last 24 Hours (Table) 02/10/22 02/11/22 02/11/22 Range/Units 19:44 11:33 11:33 WBC 24.8 H (3.8-10.6) k/uL RBC 3.59 L (4.30-5.90) m/uL Hgb 10.5 L (13.0-17.5) gm/dL Hct 35.2 L (39.0-53.0) % MCV (80.0-100.0) fL MCHC 29.7 L (31.0-37.0) g/dL Plt Count 483 H (150-450) k/uL Neutrophils # 23.3 H (1.3-7.7) k/uL ABG pH (7.35-7.45) ABG pCO2 (35-45) mmHg ABG pO2 (83-108) mmHg ABG HCO3 (21-25) mmol/L ABG Total CO2 (19-24) mmol/L ABG O2 Saturation (94-97) % Sodium 134 L (137-145) mmol/L Carbon Dioxide (22-30) mmol/L Creatinine 0.42 L (0.66-1.25) mg/dL Glucose 183 H (74-99) mg/dL POC Glucose (mg/dL) (70-110) mg/dL Calcium 7.4 L (8.4-10.2) mg/dL Total Bilirubin (0.2-1.3) mg/dL AST (17-59) U/L Alkaline Phosphatase (38-126) U/L C-Reactive Protein 18.4 H (<1.0) mg/dL Total Protein (6.3-8.2) g/dL Albumin (3.5-5.0) g/dL HDL Cholesterol 20.90 L (40.00-60.00) mg/dL Procalcitonin 0.53 H (0.02-0.09) ng/mL 02/12/22 02/12/22 02/12/22 Range/Units 02:33 02:38 02:59 WBC 18.6 H (3.8-10.6) k/uL RBC 3.44 L (4.30-5.90) m/uL Hgb 10.4 L (13.0-17.5) gm/dL Hct 34.6 L (39.0-53.0) % MCV 100.8 H (80.0-100.0) fL MCHC 30.0 L (31.0-37.0) g/dL Plt Count 534 H (150-450) k/uL Neutrophils # (1.3-7.7) k/uL ABG pH 7.14 L* (7.35-7.45) ABG pCO2 98 H* (35-45) mmHg ABG pO2 (83-108) mmHg ABG HCO3 33 H (21-25) mmol/L ABG Total CO2 36 H (19-24) mmol/L ABG O2 Saturation 92.9 L (94-97) % Sodium (137-145) mmol/L Carbon Dioxide (22-30) mmol/L Creatinine (0.66-1.25) mg/dL Glucose (74-99) mg/dL POC Glucose (mg/dL) 170 H (70-110) mg/dL Calcium (8.4-10.2) mg/dL Total Bilirubin (0.2-1.3) mg/dL AST (17-59) U/L Alkaline Phosphatase (38-126) U/L C-Reactive Protein (<1.0) mg/dL Total Protein (6.3-8.2) g/dL Albumin (3.5-5.0) g/dL HDL Cholesterol (40.00-60.00) mg/dL Procalcitonin (0.02-0.09) ng/mL 02/12/22 02/12/22 02/12/22 Range/Units 02:59 04:02 06:12 WBC (3.8-10.6) k/uL RBC (4.30-5.90) m/uL Hgb (13.0-17.5) gm/dL Hct (39.0-53.0) % MCV (80.0-100.0) fL MCHC (31.0-37.0) g/dL Plt Count (150-450) k/uL Neutrophils # (1.3-7.7) k/uL ABG pH 7.23 L (7.35-7.45) ABG pCO2 78 H* (35-45) mmHg ABG pO2 119 H (83-108) mmHg ABG HCO3 32 H (21-25) mmol/L ABG Total CO2 35 H (19-24) mmol/L ABG O2 Saturation 98.3 H (94-97) % Sodium 136 L (137-145) mmol/L Carbon Dioxide 32 H (22-30) mmol/L Creatinine 0.39 L (0.66-1.25) mg/dL Glucose 154 H (74-99) mg/dL POC Glucose (mg/dL) 142 H (70-110) mg/dL Calcium 7.3 L (8.4-10.2) mg/dL Total Bilirubin <0.1 L (0.2-1.3) mg/dL AST 68 H (17-59) U/L Alkaline Phosphatase 193 H (38-126) U/L C-Reactive Protein (<1.0) mg/dL Total Protein 5.5 L (6.3-8.2) g/dL Albumin 2.0 L (3.5-5.0) g/dL HDL Cholesterol (40.00-60.00) mg/dL Procalcitonin (0.02-0.09) ng/mL Microbiology - Last 24 Hours (Table) 02/10/22 14:45 Blood Culture - Preliminary Blood No Growth after 24 hours 02/10/22 16:35 Blood Culture - Preliminary Blood No Growth after 24 hours 02/10/22 16:20 Blood Culture - Preliminary Blood No Growth after 24 hours Assessment and Plan (1) Cavitary lesion of lung Status: Acute Code(s): J98.4 - OTHER DISORDERS OF LUNG SNOMED Code(s): 565484865 (2) Pneumonia Status: Acute Code(s): J18.9 - PNEUMONIA, UNSPECIFIED ORGANISM SNOMED Code(s): 206205681 Plan: 1patient presented to hospital with acute respiratory failure which is likely multifactorial in this patient who did have a extensive right-sided consolidation and some cavitation with a question of possible aspiration pneumonia versus malignancy as the patient is currently not running any fever and did have extensive history of smoking. Patient also have a positive COVID test and a question of post-COVID bacterial pneumonia needs to be ruled out as well however the patient procalcitonin was not significantly elevated. 2we will obtain a sputum for gram stain and culture. 3continue the patient on Zosyn however switch Levaquin to Zyvox while waiting for the culture to finalize and condition to stabilize. We will follow on clinical condition and cultures to further adjust medication if needed Thank you for this consultation will follow this patient along with you Time with Patient: Greater than 30
[2022-02-12] MEDS: LINEZOLID 600 MG in DEXTROSE/WATER 1 300ML.BAG IVPB SCH (23:08)
[2022-02-13] MEDS: LORazepam 0.5 MG TAB PO PRN ×2 (00:53→22:35)
[2022-02-13] MEDS: PIPERACILLIN-TAZOBACTAM 3.375 GM in SODIUM CHLORIDE 0.9% 100 ML IVPB SCH ×3 (04:47→18:41)
[2022-02-13] MEDS: ALBUTEROL HFA INHALER INHALATION SCH ×4 (08:12→20:35)
[2022-02-13] MEDS: TIOTROPIUM 2.5 MCG INHALER INHALATION SCH (08:12)
[2022-02-13 08:42] LABS: African American GFR (CKD) >90 (>60 ml/min/1.73 sqM); Anion Gap 3 mmol/L; Blood Urea Nitrogen 17 mg/dL (9-20); C Reactive Protein 7.5 mg/dL (<1.0); Calcium 7.4 mg/dL (8.4-10.2); Carbon Dioxide 33 mmol/L (22-30); Chloride 101 mmol/L (98-107); Glucose 151 mg/dL (74-99); Magnesium 2.2 mg/dL (1.6-2.3); Non-African American GFR(CKD) >90 (>60 ml/min/1.73 sqM); Phosphorus 2.6 mg/dL (2.5-4.5); Potassium 4.6 mmol/L (3.5-5.1); Sodium 137 mmol/L (137-145)
[2022-02-13] MEDS: ASCORBIC ACID 500 MG TAB PO SCH (10:13)
[2022-02-13] MEDS: CHOLECALCIFEROL 25 MCG (1000 IU) TABLET PO SCH (10:13)
[2022-02-13] MEDS: ZINC SULFATE 220 MG CAP PO SCH (10:14)
[2022-02-13] MEDS: ENOXAPARIN 40 MG/0.4 ML SYRINGE SQ SCH (10:17)
[2022-02-13] MEDS: ASPIRIN 325 MG TAB PO SCH (10:17)
[2022-02-13] MEDS: methylPREDNISolone SOD SUCCI 40 MG/ML 1 ML VIAL IV SCH ×3 (10:19→22:34)
[2022-02-13] MEDS: THIAMINE 100 MG/ML 2 ML VIAL IVP SCH (10:20)
[2022-02-13] MEDS: FAMOTIDINE 20 MG/2 ML VIAL IV SCH ×2 (10:24→22:34)
[2022-02-13] MEDS: LINEZOLID 600 MG in DEXTROSE/WATER 1 300ML.BAG IVPB SCH ×2 (10:24→22:34)
[2022-02-13] MEDS ORDERED: ALPRAZolam 0.25 MG TAB PO PRN (11:31)
--- NOTE | 2022-02-13 11:36 | P.PN ---
Subjective This is a pleasant 61 years old male with no significant past medical history, presents because of difficulty breathing for the last few days Patient brought by his family member at bedside who noticed he is getting worsening dyspnea especially when walking upstairs, Also have occasional coughing and not eating well with decreased appetite over t he last few days, he is making green/yellow phlegm and also complaining of from chest pain in the middle of his chest that increased with coughing and deep inspiration He denies abdominal pain vomiting or diarrhea, no dysuria or urgency, no dizziness or headache, no weakness or numbness. He smokes about half pack per day and he was consulted and agrees to quit but he declined the nicotine patch and he drinks 5-6 beers a day with some liquor and shots, also per family he uses oxycodone for dependence about 30 mg each day. Also patient is generally weak. On admission patient was mildly hypoxic and he has to be placed on 4 L normal saline with saturation improved up to 95%, he is tachypneic 24-29, slightly tachycardic about 88-98 Labs showing leukocytosis of 16.5, hemoglobin 11, platelet count slightly elevated. INR 1.1, sodium 1:30, BUN 9 and creatinine 0.3. Liver enzymes not elevated. Troponin 1 is negative at 0.012. ProBNP is 1760. Influenza and RSV viruses are negative while coronavirus is detected CT of the chest with IV contrast: New confluent right upper lobe airspace opacit y with few scattered air cyst involves the majority of the upper lobe and extends into the lower lobe posteriorly. There is bronchial wall thickening most pronounced in the lower lobes. Scattered groundglass opacity. There is minus like opacity which stands hours as it is away from the remainder of consolidation more inferiorly measure up to 2.7 cm. No pulmonary embolism In the emergency room patient was started on Levaquin and Zosyn Also patient is started on Solu-Medrol 80 mg as well as multiple vitamins 02/11/2022 Patient sits up up in bed eating his breakfast this morning, he says her breathing is better however is on 6 L oxygen via nasal cannula with saturations in the low 90s, he is mildly tachypneic but not in respiratory distress at rest. Urine drug screen is positive for cocaine as well as opioids Labs from this morning are pending TB test is requested Patient reports some depression but denies suicidal or homicidal ideation, psychiatric team were consulted He does not show significant withdrawal symptoms 02/12/2022 Earlier morning patient went into respiratory distress, he was to be placed on BiPAP and he received 1 dose of IV Lasix. Patient was not getting IV fluids ordered for him. Currently he is awake very tired but he is confused he has no insight into his illness he thinks he is better and he wants to go home. We'll try to explain his illness and a question but he does not answer appropriately. I talked to his sister Susana and updated her with his clinical situation and all questions were answered to her satisfaction. She agrees for TPN if it is indicated however patient is able to eat, discussed the case with our dietitian consult and we placed him on ensure for now. Other than patient is still tachypneic and repeat chest x-ray is noted. He remains on Levaquin and Zosyn and IV Solu-Medrol We'll consult infectious disease team Also patient on CIWA protocol and thiamine on the Remeron with no significant sites of alcohol withdrawal 02/13/2022 Patient is more awake and alert today, he knows in the hospital but he looks a bit anxious and he was asking to be discharged home although he still on 8-9 L/m of oxygen via nasal cannula. There is also mild to moderately tachypneic which is a slightly improved compared to yesterday. His WBC back is 18.6 k yesterday. BMP is unremarkable. He has right pulmonary consolidation suspicious for infection versus malignancy. Current it is on Levaquin and Zosyn was switched to Zyvox on Zosyn by ID team. Sputum cultures pending. Patient has right arm PICC line with TPN running. We will check modified barium swallow study and if he does well evaluation he can resume diet. Start Xanax when necessary for anxiety. Patient with no overt signs symptoms of focal withdrawal Objective - Vital Signs Vital signs: Vital Signs Temp 98.0 F 02/13/22 04:00 Pulse 100 02/13/22 04:00 Resp 22 02/13/22 04:00 BP 118/75 02/13/22 04:00 Pulse Ox 95 02/13/22 04:00 FiO2 100 02/12/22 06:56 Intake & Output 02/12/22 02/13/22 02/13/22 18:59 06:59 18:59 Output Total 200 Balance -200 Weight 54.885 kg Output: Urine 200 Other: Voiding Method Urinal Urinal Diaper Diaper # Voids 2 1 - Exam -GENERAL: The patient is alert and oriented x3, not in any acute distress. Well cachectic HEENT: Pupils are round and equally reacting to light. EOMI. No scleral icterus. No conjunctival pallor. Normocephalic, atraumatic. No pharyngeal erythema. No thyromegaly. CARDIOVASCULAR: S1 and S2 present. No murmurs, rubs, or gallops. -PULMONARY: Diminished breath sounds and decreased air entry on both lung andino, more on the right side, no wheezing or crackles. ABDOMEN: Soft, nontender, nondistended, normoactive bowel sounds. No palpable organomegaly. MUSCULOSKELETAL: No joint swelling or deformity. EXTREMITIES: No cyanosis, clubbing, or pedal edema. NEUROLOGICAL: Gross neurological examination did not reveal any focal deficits. SKIN: No rashes. no petechiae. - Labs CBC & Chem 7: 02/12/22 02:59 02/13/22 07:04 Labs: Abnormal Lab Results - Last 24 Hours (Table) 02/13/22 Range/Units 07:04 Carbon Dioxide 33 H (22-30) mmol/L Creatinine 0.33 L (0.66-1.25) mg/dL Glucose 151 H (74-99) mg/dL Calcium 7.4 L (8.4-10.2) mg/dL C-Reactive Protein 7.5 H (<1.0) mg/dL Microbiology - Last 24 Hours (Table) 02/10/22 14:45 Blood Culture - Preliminary Blood No Growth after 48 hours 02/10/22 16:35 Blood Culture - Preliminary Blood No Growth after 48 hours 02/10/22 16:20 Blood Culture - Preliminary Blood No Growth after 48 hours Assessment and Plan Assessment: Right upper lobe consolidation involving the majority of the upper lobe and acceptance into lower lobe posteriorly suspicious for pneumonia, rule out aspiration pneumonia Right lung mass 2.7 cm Acute COPD exacerbation Acute hypoxic respiratory failure Possible Sepsis with leukocytosis, tachycardia and tachypnea Nicotine dependence Moderate to severe calories and protein malnutrition Alcohol use disorder Opioid dependence Plan: Continue with antibiotic, currently on Zosyn and Zyvox per ID team consult Continue with oxygen treatment, currently on nonrebreather Pulmonary team consult CIWA protocol and thiamine Nutrition consult and ensure Check TB test per pulmonary team Labs and medication were reviewed.. Continue same treatment. Continue with symptomatic treatment. Resume home medication. Monitor lytes and vitals. DVT and GI prophylaxis. Further recommendations as per clinical course of the patient DVT prophylaxis: Subcutaneous heparin GI Prophylaxis: Pepcid PT/OT: Pending Prognosis is guarded Discussed with staff and temp CODE STATUS discussed with sister she recommends intubation if indicated and full code
--- NOTE | 2022-02-13 11:48 | FL ---
Modified barium swallow. Consistencies administered: Thin, honey, nectar, and pudding. No tracheal aspiration. No nasopharynge al aspiration. No underpenetration. Vallecular retention identified. Fluoro time: 2 minutes 12 seconds No images were sent to PACS. Please see speech pathology report.
--- NOTE | 2022-02-13 12:51 | P.PN ---
Subjective Progress Note Date: 02/13/22 61-year-old male patient, currently hospitalized for 4 and extensive pneumonia involving the right lung. The patient is a very poor historian. The patient has history of smoking, substance abuse in the form of marijuana and cocaine in addition to call drinking. He has done no medical follow-up over the years and he has essentially ignored his health and his condition has been progressively getting worse to the point where the patient started having worsening shortness of breath and was brought into the hospital for further evaluation. He was brought in by family member. He has marked diminished appetite, weight loss, looks eczema debilitated cachectic and weak and has a body mass index of 17.9. He has increased cough and congestion. He has had remote history of hemoptysis approximately 4 weeks ago 1. No pleurisy. No hemoptysis. No chest pain. No nausea or vomiting or abdominal pain. He has a marked diminished oral intake in terms of food and he has not met his cardiac requirements over the years. Drinks around 6 beers a day. He also takes oxycodone as and seems to be depende nt on oxycodone for many years. In the emergency, the patient was found to be hypoxic and placed on all his of O2 nasal cannula. White cell count was elevated at 16.5. Troponins were negative. BUN was 9 with a creatinine of 0.3. The proBNP level was 1670. The RSV and influenza screen were all negative. The patient had a chest x-ray that showed extensive right upper lobe cavitating pneumonia. CAT scan of the chest was also done that showed an extensive confluent area of airspace disease with central cavitation involving the right upper lobe mainly and extending to the right lower lobe. This infiltrate was extending posterior to the right lower lobe. There is a central cavitation. L eft lung is clear and there is underlying emphysema. There was also evidence of lymphadenopathy involving the right paratracheal chain the largest lymph node measuring around 12 mm in size. No exposure to TB. No history of HIV. Patient also checked positive for Covid 19. No previous vaccination. The patient is seen today 02/12/2022 in follow-up on the selective care unit. He is currently sitting up in bed. Awake and alert in no acute distress. He remains in mild respiratory distress. Approximately 3:00 this morning the patient had a near respiratory arrest staff found him without his oxygen and cyanotic. Arterial blood gases revealed a PaO2 of 87, pCO2 98 and a pH of 7.1 400% FiO2. Follow-up blood gases revealed a PaO2 of 119. PCO2 of 78 and a pH of 7.23. He was emergently placed on BiPAP and did recover. He required a food safety technician to keep his mask on. He is currently on 15 L nonrebreather mask. He is afebrile. Hemodynamically stable. He is quite angry and agitated. He keeps insisting he wants to go home. Chest x-ray continues to show persistent right upper lung irregular consolidation with foci of air and right upper lung volume loss with less prominent lower lung consolidation and/or atelectasis. No significant change. Computed tomography scan of the chest revealed possible cavitation in the setting of necrotizing pneumonia. There is enlarged mediastin al lymph nodes. Infectious versus underlying mass. No pulmonary embolism. Blood cultures revealed no growth. White count 18.6. Hemoglobin 10.4. Sodium 136. Potassium 4.5. BUN 15. Creatinine 0.39. Glucose 154. C-reactive protein 18.4. LDH 395. ProBNP 1520. He is continued on albuterol, IV Solu- Medrol, Spiriva. Antibiotics in the form of Zosyn and Levaquin. He is receiving Lovenox for DVT prophylaxis. Vitamin supplements. Remains in the CIWA protocol. The patient is seen today 02/13/2022 in follow-up on the selective care unit. He is currently resting in bed. Awake and alert in no acute distress. He is quite weak and debilitated. Maintaining O2 saturation in the mid 90s on 9 L high flow nasal cannula. Modified barium swallow did not reveal any evidence of tracheal aspiration. No nasopharyngeal aspiration. No tender penetration. Recommended initiating chopped diet/and liquids per speech therapy. He has had a PICC line placed. He's been initiated on TPN and lipids for nutritional support. Blood cultures revealed no growth.sodium 137. Potassium 4.6. Bicarb 33. BUN 17. Creatinine 0.33. He is continued on bronchodilators, IV Solu-Medrol, antibiotics in the form of Zosyn and linezolid. Remains in the CIWA protocol. Objective - Vital Signs Vital signs: Vital Signs Temp 98.0 F 02/13/22 04:00 Pulse 100 02/13/22 04:00 Resp 22 02/13/22 04:00 BP 118/75 02/13/22 04:00 Pulse Ox 95 02/13/22 04:00 FiO2 100 02/12/22 06:56 Intake & Output 02/12/22 02/13/22 02/13/22 18:59 06:59 18:59 Output Total 200 Balance -200 Weight 54.885 kg Output: Urine 200 Other: Voiding Method Urinal Urinal Diaper Diaper # Voids 2 1 - Exam GENERAL: The patient is a 61-year-old male, currently not in any acute distress. Frail, cachectic and the patient carries a body mass index of 17.9. Currently on 9 L O2 nonrebreather mask. HEENT: Pupils are round and equally reacting to light. EOMI. No scleral icterus. No conjunctival pallor. Normocephalic, atraumatic. No pharyngeal erythema. No thyromegaly. CARDIOVASCULAR: S1 and S2 present. No murmurs, rubs, or gallops. PULMONARY: Diminished breath sounds and decreased air entry on both lung andino, more on the right side, no wheezing or crackles. ABDOMEN: Soft, nontender, nondistended, normoactive bowel sounds. No palpable organomegaly. MUSCULOSKELETAL: No joint swelling or deformity. EXTREMITIES: No cyanosis, clubbing, or pedal edema. NEUROLOGICAL: Gross neurological examination did not reveal any focal deficits. SKIN: No rashes. no petechiae. - Labs CBC & Chem 7: 02/12/22 02:59 02/13/22 07:04 Labs: Abnormal Lab Results - Last 24 Hours (Table) 02/13/22 Range/Units 07:04 Carbon Dioxide 33 H (22-30) mmol/L Creatinine 0.33 L (0.66-1.25) mg/dL Glucose 151 H (74-99) mg/dL Calcium 7.4 L (8.4-10.2) mg/dL C-Reactive Protein 7.5 H (<1.0) mg/dL Microbiology - Last 24 Hours (Table) 02/10/22 14:45 Blood Culture - Preliminary Blood No Growth after 48 hours 02/10/22 16:35 Blood Culture - Preliminary Blood No Growth after 48 hours 02/10/22 16:20 Blood Culture - Preliminary Blood No Growth after 48 hours Assessment and Plan Assessment: Acute/subacute/chronic hypoxic respiratory failure, currently on 15 L of oxygen by nonrebreather. The patient has not had any medical evaluation the past and he has ignored his health for many years, is not known to us. We suspect that they hypoxemia somewhat subacute. The patient did require rapid response approximately 3:00 this morning after he had his oxygen off and he is found cyanotic. Initially required BiPAP support currently on 9 L via nonrebreather mask Extensive right upper lobe pneumonia with necrotizing changes and cavitation. Rule out gram-negative/anaerobic pneumonia. Malignancy cannot be completely excluded. TB is felt to be less likely. Pro-calcitonin 0.53. Legionella scree n negative. Currently on Zosyn and Linezolid. Covid 19 positive, nonvaccinated Acute leukocytosis Multiple substance abuse including marijuana/cocaine and possibly alcoholism Chronic smoker Cachexia with ongoing weight loss with a body mass index is 17.9 COPD with emphysematous changes bilaterally as evidenced on the CAT scan of the chest Plan: The patient was seen and evaluated Barium swallow, medications and labs reviewed Continue Zosyn and Linezolid Continue bronchodilators, steroids PICC line placed and initiated on TPN/lipids Remains in the CIWA protocol Prognosis is guarded May require bronchoscopy with biopsy once recovered from the CoVID infection We will continue to follow I have personally seen and examined the patient, performed the documentation and the assessment and plan as written. Number of minutes spent on the visit: 10.
--- NOTE | 2022-02-13 13:07 | P.PN ---
Progress Note - Text Progress Note Date: 02/13/22 Interval History: Patient was seen at bedside and was directable and agreeable to speak with script writer in his room. We, the patient is denying any suicidal or homicidal ideation, intention, and/or plan. He is not reporting any auditory or visual hallucinations. He continues to report shortness of breath. He expresses frustration with a prolonged hospitalization and is inquiring about when he would be able to leave. However he does understand the need to be in the hospit al due to his general health issues. He is agreeable to stay at this time. He is not reporting any psychotic symptoms. He reports no issues regarding his sleep or his appetite. Mental Status Exam: General Appearance: Patient appears to be stated age is alert, directable, and cooperative. Patient has nasal cannula in place. Behavior: Patient is calmly seated without any agitated behavior. Speech: Patient's speech is low in volume, nonspontaneous, monotone. Mood/Affect: Mood is "okay." Affect is blunted. Suicidality/Homicidality: Patient denies having any suicidal or homicidal ideation intent or plan. Perceptions: Patient denies any visual hallucinations and denies any auditory hallucinations Though content/process: There is no evidence of any delusional thought content and thought process is linear and goal-directed. Memory and concentration: AOX3, grossly intact for the purposes of this session Judgment and insight: Improving mildly Vital Signs Temp 98.0 F 02/13/22 04:00 Pulse 100 02/13/22 04:00 Resp 22 02/13/22 04:00 BP 118/75 02/13/22 04:00 Pulse Ox 95 02/13/22 04:00 FiO2 100 02/12/22 06:56 Intake & Output 02/12/22 02/13/22 02/13/22 18:59 06:59 18:59 Output Total 200 Balance -200 Weight 54.885 kg Output: Urine 200 Other: Voiding Method Urinal Urinal Diaper Diaper # Voids 2 1 Laboratory Results - Last 24 Hours 02/11/22 02/12/22 02/13/22 11:33 15:41 07:04 Sodium 137 Potassium 4.6 Chloride 101 Carbon Dioxide 33 H Anion Gap 3 BUN 17 Creatinine 0.33 L Est GFR (CKD-EPI)AfAm >90 Est GFR (CKD-EPI)NonAf >90 Glucose 151 H Calcium 7.4 L Ionized Calcium Priyanka 4.8 Phosphorus 3.3 2.6 Magnesium 2.2 C-Reactive Protein 7.5 H TB Test (QFT) Gold Plus Indetermin Assessment Right upper lobe consolidation Acute COPD exacerbation Acute hypoxic respiratory failure Possible Sepsis with leukocytosis, tachycardia and tachypnea Nicotine dependence Moderate to severe calories and protein malnutrition Alcohol use disorder Opioid dependence Plan: -Continue your medical management. -At this time patient DOES NOT meet criteria for inpatient psychiatric admission. The patient is not presenting with any imminent risk of harm to self or others. He is future and goal oriented. He is agreeable to continue medical treatment at this time. -Medications: Continue Remeron 7.5 mg by mouth at bedtime for mood, sleep, and appetite. -CIWA protocol with PRN Ativan for alcohol withdrawal. Continue to monitor vital signs. -Psychiatry will sign off at this time. Please contact us with any questions or concerns.
--- NOTE | 2022-02-13 16:44 | P.PN ---
Subjective Progress Note Date: 02/13/22 Principal diagnosis: Right-sided pneumonia with cavitation Patient is a 61-year-old male with a past medical history sniffing and for smoking substance abuse patient was brought into the ER 2 days ago for evaluation of increasing shortness of breath and a cough that been getting worse for the last 2 weeks patient did have a moderate intensity cough and has been bringing up some green to yellow sputum, patient did have a CT of the chest with evidence of extensive right-sided consolidation and some cavitation concern for possible aspiration pneumonia patient also have a positive covid test. On today's evaluation that is 02/13/2022, the patient remains to be afebrile, the patient is currently on 9 L high flow oxygen, patient is in the bed she noticed pretty status is not a very good historian as he did not answer any question no vomiting no diarrhea was reported by the nurse staff Objective - Vital Signs Vital signs: Vital Signs Temp 98.0 F 02/13/22 04:00 Pulse 100 02/13/22 04:00 Resp 22 02/13/22 04:00 BP 118/75 02/13/22 04:00 Pulse Ox 95 02/13/22 04:00 FiO2 100 02/12/22 06:56 Intake & Output 02/12/22 02/13/22 02/13/22 18:59 06:59 18:59 Output Total 200 Balance -200 Weight 54.885 kg Output: Urine 200 Other: Voiding Method Urinal Urinal Diaper Diaper # Voids 2 1 - Exam GENERAL DESCRIPTION: Middle-age male lying in bed in no distress RESPIRATORY SYSTEM: Unlabored breathing , coarse breath sounds bilaterally HEART: S1 S2 regular rate and rhythm , ABDOMEN: Soft , no tenderness EXTREMITIES: No edema feet - Labs CBC & Chem 7: 02/12/22 02:59 02/13/22 07:04 Labs: Abnormal Lab Results - Last 24 Hours (Table) 02/13/22 Range/Units 07:04 Carbon Dioxide 33 H (22-30) mmol/L Creatinine 0.33 L (0.66-1.25) mg/dL Glucose 151 H (74-99) mg/dL Calcium 7.4 L (8.4-10.2) mg/dL C-Reactive Protein 7.5 H (<1.0) mg/dL Microbiology - Last 24 Hours (Table) 02/10/22 14:45 Blood Culture - Preliminary Blood No Growth after 48 hours 02/10/22 16:35 Blood Culture - Preliminary Blood No Growth after 48 hours 02/10/22 16:20 Blood Culture - Preliminary Blood No Growth after 48 hours Assessment and Plan (1) Cavitary lesion of lung Current Visit: Yes Status: Acute Code(s): J98.4 - OTHER DISORDERS OF LUNG SNOMED Code(s): 129036633 (2) Pneumonia Current Visit: Yes Status: Acute Code(s): J18.9 - PNEUMONIA, UNSPECIFIED ORGANISM SNOMED Code(s): 990452047 Plan: 1patient presented to hospital with acute respiratory failure which is likely multifactorial in this patient who did have a extensive right-sided consolidation and some cavitation with a question of possible aspiration pneumonia versus malignancy as the patient is currently not running any fever and did have extensive history of smoking. Patient also have a positive COVID test and a question of post-COVID bacterial pneumonia needs to be ruled out as well however the patient procalcitonin was not significantly elevated. 2we will try to obtain a sputum for gram stain and culture. 3patient to continue the patient on Zosyn and Zyvox while waiting for the culture to finalize and condition to stabilize. Time with Patient: Less than 30
[2022-02-14] MEDS: PIPERACILLIN-TAZOBACTAM 3.375 GM in SODIUM CHLORIDE 0.9% 100 ML IVPB SCH ×3 (04:45→19:03)
[2022-02-14 05:27] LABS: Glucose,Whole Blood 194 mg/dL (70-110)
[2022-02-14 07:06] LABS: African American GFR (CKD) >90 (>60 ml/min/1.73 sqM); Anion Gap 1 mmol/L; Blood Urea Nitrogen 20 mg/dL (9-20); Calcium 7.1 mg/dL (8.4-10.2); Carbon Dioxide 37 mmol/L (22-30); Chloride 97 mmol/L (98-107); Glucose 111 mg/dL (74-99); Magnesium 2.1 mg/dL (1.6-2.3); Non-African American GFR(CKD) >90 (>60 ml/min/1.73 sqM); Phosphorus 2.2 mg/dL (2.5-4.5); Potassium 3.9 mmol/L (3.5-5.1); Sodium 135 mmol/L (137-145)
[2022-02-14] MEDS: ALBUTEROL HFA INHALER INHALATION SCH ×4 (08:03→19:41)
[2022-02-14] MEDS: TIOTROPIUM 2.5 MCG INHALER INHALATION SCH (08:03)
[2022-02-14] MEDS: ASCORBIC ACID 500 MG TAB PO SCH (09:53)
[2022-02-14] MEDS: CHOLECALCIFEROL 25 MCG (1000 IU) TABLET PO SCH (09:53)
[2022-02-14] MEDS: ZINC SULFATE 220 MG CAP PO SCH (09:54)
[2022-02-14] MEDS: ASPIRIN 325 MG TAB PO SCH (09:59)
[2022-02-14] MEDS: methylPREDNISolone SOD SUCCI 40 MG/ML 1 ML VIAL IV SCH ×3 (09:59→23:14)
[2022-02-14] MEDS: ENOXAPARIN 40 MG/0.4 ML SYRINGE SQ SCH (09:59)
[2022-02-14] MEDS: FAMOTIDINE 20 MG/2 ML VIAL IV SCH ×2 (09:59→20:34)
[2022-02-14] MEDS: LINEZOLID 600 MG in DEXTROSE/WATER 1 300ML.BAG IVPB SCH ×2 (09:59→20:35)
[2022-02-14] MEDS: THIAMINE 100 MG/ML 2 ML VIAL IVP SCH (09:59)
[2022-02-14] MEDS ORDERED: ALPRAZolam 0.5 MG TAB PO PRN (13:51)
--- NOTE | 2022-02-14 13:55 | P.PN ---
Subjective This is a pleasant 61 years old male with no significant past medical history, presents because of difficulty breathing for the last few days Patient brought by his family member at bedside who noticed he is getting worsening dyspnea especially when walking upstairs, Also have occasional coughing and not eating well with decreased appetite over t he last few days, he is making green/yellow phlegm and also complaining of from chest pain in the middle of his chest that increased with coughing and deep inspiration He denies abdominal pain vomiting or diarrhea, no dysuria or urgency, no dizziness or headache, no weakness or numbness. He smokes about half pack per day and he was consulted and agrees to quit but he declined the nicotine patch and he drinks 5-6 beers a day with some liquor and shots, also per family he uses oxycodone for dependence about 30 mg each day. Also patient is generally weak. On admission patient was mildly hypoxic and he has to be placed on 4 L normal saline with saturation improved up to 95%, he is tachypneic 24-29, slightly tachycardic about 88-98 Labs showing leukocytosis of 16.5, hemoglobin 11, platelet count slightly elevated. INR 1.1, sodium 1:30, BUN 9 and creatinine 0.3. Liver enzymes not elevated. Troponin 1 is negative at 0.012. ProBNP is 1760. Influenza and RSV viruses are negative while coronavirus is detected CT of the chest with IV contrast: New confluent right upper lobe airspace opacit y with few scattered air cyst involves the majority of the upper lobe and extends into the lower lobe posteriorly. There is bronchial wall thickening most pronounced in the lower lobes. Scattered groundglass opacity. There is minus like opacity which stands hours as it is away from the remainder of consolidation more inferiorly measure up to 2.7 cm. No pulmonary embolism In the emergency room patient was started on Levaquin and Zosyn Also patient is started on Solu-Medrol 80 mg as well as multiple vitamins 02/11/2022 Patient sits up up in bed eating his breakfast this morning, he says her breathing is better however is on 6 L oxygen via nasal cannula with saturations in the low 90s, he is mildly tachypneic but not in respiratory distress at rest. Urine drug screen is positive for cocaine as well as opioids Labs from this morning are pending TB test is requested Patient reports some depression but denies suicidal or homicidal ideation, psychiatric team were consulted He does not show significant withdrawal symptoms 02/12/2022 Earlier morning patient went into respiratory distress, he was to be placed on BiPAP and he received 1 dose of IV Lasix. Patient was not getting IV fluids ordered for him. Currently he is awake very tired but he is confused he has no insight into his illness he thinks he is better and he wants to go home. We'll try to explain his illness and a question but he does not answer appropriately. I talked to his sister Susana and updated her with his clinical situation and all questions were answered to her satisfaction. She agrees for TPN if it is indicated however patient is able to eat, discussed the case with our dietitian consult and we placed him on ensure for now. Other than patient is still tachypneic and repeat chest x-ray is noted. He remains on Levaquin and Zosyn and IV Solu-Medrol We'll consult infectious disease team Also patient on CIWA protocol and thiamine on the Remeron with no significant sites of alcohol withdrawal 02/13/2022 Patient is more awake and alert today, he knows in the hospital but he looks a bit anxious and he was asking to be discharged home although he still on 8-9 L/m of oxygen via nasal cannula. There is also mild to moderately tachypneic which is a slightly improved compared to yesterday. His WBC back is 18.6 k yesterday. BMP is unremarkable. He has right pulmonary consolidation suspicious for infection versus malignancy. Current it is on Levaquin and Zosyn was switched to Zyvox on Zosyn by ID team. Sputum cultures pending. Patient has right arm PICC line with TPN running. We will check modified barium swallow study and if he does well evaluation he can resume diet. Start Xanax when necessary for anxiety. Patient with no overt signs symptoms of focal withdrawal 02/14/2022 Earlier this morning patient was trying to leave AMA, he almost fell at the doorsteps off his room, he was helped by staff back to his bed. When I saw the patient left on he was fully awake and oriented, does not look in much respiratory distress while sitting up in bed, he was still on nasal cannula. He knew he is in the hospital and was the reason for his admission, he knows about his lung disease, I told him about his lung failure and requirement for high dose of oxygen and he cannot been discharged because medically he is now stable and there is a risk of or worsening of his breathing and oxygen requirement, he verbalized understanding however he was still insistent on leaving home for [place], even patient showed interest of going home on hospice, and he allowed me to talk to his about this, I called his ms martinez discussed the case with her and patient wishes and considering hospice, she told me she is going to talk to him. In the meantime patient remains on Levaquin and Zosyn, still requires 9-10 L of oxygen via nasal cannula. He is off IV fluids and his continued on Solu-Medrol. Pulmonary team recommending bronchoscopy and biopsy down the road Currently there is a sitter at bedside for safety Active Medications Generic Name Dose Route Start Last Admin Trade Name Freq PRN Reason Stop Dose Admin Albuterol Sulfate 2 puff 02/11/22 20:00 02/14/22 12:12 Albuterol Hfa Inhaler INHALATION 2 puff RT-QID SILVINO Administration Albuterol Sulfate 2 puff 02/11/22 18:00 02/12/22 03:01 Albuterol Hfa Inhaler INHALATION 2 puff RT-QID PRN Administration Shortness Of Breath Or Wheezing Alprazolam 0.5 mg 02/14/22 13:51 Alprazolam 0.5 Mg Tab PO BID PRN Anxiety Ascorbic Acid 1,000 mg 02/11/22 09:00 02/14/22 09:53 Ascorbic Acid 500 Mg Tab PO Not Given DAILY SILVINO Aspirin 325 mg 02/11/22 09:00 02/14/22 09:59 Aspirin 325 Mg Tab PO 325 mg DAILY SILVINO Administration Cholecalciferol 50 mcg 02/11/22 09:00 02/14/22 09:53 Cholecalciferol 25 Mcg (1000 Iu) Tablet PO Not Given DAILY SILVINO Enoxaparin Sodium 40 mg 02/11/22 09:00 02/14/22 09:59 Enoxaparin 40 Mg/0.4 Ml Syringe SQ 40 mg DAILY SILVINO Administration Famotidine 20 mg 02/10/22 21:00 02/14/22 09:59 Famotidine 20 Mg/2 Ml Vial IV 20 mg Q12HR SILVINO Administration Piperacillin Sod/Tazobactam 100 mls @ 200 mls/hr 02/11/22 02:00 02/14/22 12:50 Sod 3.375 gm/ Sodium Chloride IVPB 200 mls/hr Q8H SILVINO Administration Protocol Fat Emulsion Intravenous 250 250 mls @ 21 mls/hr 02/12/22 20:00 02/12/22 21:02 ml/ IV Solution IV 21 mls/hr MoFr SILVINO Administration Parenteral Vitamin Supplement 1,011 mls @ 70 mls/hr 02/13/22 20:00 10 ml/ Zinc/Copper/Manganese/ IV Selenium 1 ml/ Amino Ac/ .BY DURATION SILVINO Electrol/Dextrose/Calcium Amino Ac/Electrol/Dextrose/Calcium 1,000 mls @ 70 mls/hr 02/13/22 20:00 Clinimix E 5%-20% Solution IV .BY DURATION [facility] Linezolid 600 mg/ IV Solution 300 mls @ 150 mls/hr 02/12/22 22:30 02/14/22 09:59 IVPB 150 mls/hr Q12HR SILVINO Administration Protocol Lorazepam 0.5 mg 02/11/22 00:31 02/13/22 22:35 Lorazepam 0.5 Mg Tab PO 0.5 mg Q4HR PRN Administration Ciwa 4 To 5 Lorazepam 1 mg 02/11/22 00:31 02/14/22 03:37 Lorazepam 1 Mg Tab PO 1 mg Q4HR PRN Administration Ciwa 6 To 7 Lorazepam 2 mg 02/11/22 00:31 Lorazepam 1 Mg Tab PO Q2HR PRN Ciwa 10 or greater Lorazepam 2 mg 02/11/22 00:31 02/13/22 10:15 Lorazepam 1 Mg Tab PO 2 mg Q3HR PRN Administration Ciwa 8 To 9 Methylprednisolone Sodium Succinate 40 mg 02/11/22 00:00 02/14/22 09:59 Methylprednisolone Sod Succi 40 Mg/Ml 1 Ml Vial IV 40 mg Q8HR SILVINO Administration Miscellaneous Information 1 each 02/10/22 15:53 Pneumonia Protocol Utilized 1 Each Misc PO ONCE PRN Per Protocol Thiamine HCl 100 mg 02/11/22 09:00 02/14/22 09:59 Thiamine 100 Mg/Ml 2 Ml Vial IVP 100 mg DAILY SILVINO Administration Tiotropium [employer] 2 puff 02/12/22 08:00 02/14/22 08:03 Tiotropium 2.5 Mcg Inhaler INHALATION 2 puff RT-DAILY SILVINO Administration Zinc Sulfate 220 mg 02/11/22 09:00 02/14/22 09:54 Zinc Sulfate 220 Mg Cap PO Not Given DAILY SILVINO Objective - Vital Signs Vital signs: Vital Signs Temp 96.8 F L 02/14/22 04:00 Pulse 108 H 02/14/22 08:00 Resp 18 02/14/22 08:00 BP 146/80 02/14/22 04:00 Pulse Ox 92 L 02/14/22 04:00 FiO2 50 02/13/22 15:07 Intake & Output 02/13/22 02/14/22 02/14/22 18:59 06:59 18:59 Intake Total 660 Output Total 204 Balance -204 660 Weight 54.885 kg Intake: Oral 660 Output: Urine 200 Urine/Stool Mix 4 Other: Voiding Method Urinal Urinal Urinal Diaper Diaper Diaper # Voids 3 - Exam -GENERAL: The patient is alert and oriented x3, not in any acute distress. Well cachectic HEENT: Pupils are round and equally reacting to light. EOMI. No scleral icterus. No conjunctival pallor. Normocephalic, atraumatic. No pharyngeal erythema. No thyromegaly. CARDIOVASCULAR: S1 and S2 present. No murmurs, rubs, or gallops. -PULMONARY: Diminished breath sounds and decreased air entry on both lung andino, more on the right side, no wheezing or crackles. ABDOMEN: Soft, nontender, nondistended, normoactive bowel sounds. No palpable or ganomegaly. MUSCULOSKELETAL: No joint swelling or deformity. EXTREMITIES: No cyanosis, clubbing, or pedal edema. NEUROLOGICAL: Gross neurological examination did not reveal any focal deficits. SKIN: No rashes. no petechiae. - Labs CBC & Chem 7: 02/12/22 02:59 02/14/22 06:02 Labs: Abnormal Lab Results - Last 24 Hours (Table) 02/13/22 02/14/22 02/14/22 Range/Units 07:04 05:25 06:02 Sodium 135 L (137-145) mmol/L Chloride 97 L (98-107) mmol/L Carbon Dioxide 37 H (22-30) mmol/L Creatinine 0.38 L (0.66-1.25) mg/dL Glucose 111 H (74-99) mg/dL POC Glucose (mg/dL) 194 H (70-110) mg/dL Calcium 7.1 L (8.4-10.2) mg/dL Phosphorus 2.2 L (2.5-4.5) mg/dL Procalcitonin 0.19 H (0.02-0.09) ng/mL Microbiology - Last 24 Hours (Table) 02/10/22 14:45 Blood Culture - Preliminary Blood No Growth after 72 hours 02/10/22 16:20 Blood Culture - Preliminary Blood No Growth after 72 hours 02/10/22 16:35 Blood Culture - Preliminary Blood No Growth after 72 hours Assessment and Plan Assessment: Right upper lobe consolidation involving the majority of the upper lobe and acceptance into lower lobe posteriorly suspicious for pneumonia, rule out aspiration pneumonia Right lung mass 2.7 cm Acute COPD exacerbation Acute hypoxic respiratory failure Possible Sepsis with leukocytosis, tachycardia and tachypnea Nicotine dependence Moderate to severe calories and protein malnutrition Alcohol use disorder Opioid dependence Plan: Continue with antibiotic, currently on Zosyn and Zyvox per ID team consult Continue with oxygen treatment, currently on nonrebreather Pulmonary team consult CIWA protocol and thiamine Nutrition consult and ensure Check TB test per pulmonary team patient is willing to continue treatment medically for psychiatrist who signed off Labs and medication were reviewed.. Continue same treatment. Continue with symptomatic treatment. Resume home medication. Monitor lytes and vitals. DVT and GI prophylaxis. Further recommendations as per clinical course of the patient DVT prophylaxis: Subcutaneous heparin GI Prophylaxis: Pepcid PT/OT: Pending Prognosis is guarded Discussed with staff CODE STATUS discussed : full code Discussed case with family
--- NOTE | 2022-02-14 14:02 | P.PN ---
Subjective Progress Note Date: 02/14/22 61-year-old male patient, currently hospitalized for 4 and extensive pneumonia involving the right lung. The patient is a very poor historian. The patient has history of smoking, substance abuse in the form of marijuana and cocaine in addition to call drinking. He has done no medical follow-up over the years and he has essentially ignored his health and his condition has been progressively getting worse to the point where the patient started having worsening shortness of breath and was brought into the hospital for further evaluation. He was brought in by family member. He has marked diminished appetite, weight loss, looks eczema debilitated cachectic and weak and has a body mass index of 17.9. He has increased cough and congestion. He has had remote history of hemoptysis approximately 4 weeks ago 1. No pleurisy. No hemoptysis. No chest pain. No nausea or vomiting or abdominal pain. He has a marked diminished oral intake in terms of food and he has not met his cardiac requirements over the years. Drinks around 6 beers a day. He also takes oxycodone as and seems to be depende nt on oxycodone for many years. In the emergency, the patient was found to be hypoxic and placed on all his of O2 nasal cannula. White cell count was elevated at 16.5. Troponins were negative. BUN was 9 with a creatinine of 0.3. The proBNP level was 1670. The RSV and influenza screen were all negative. The patient had a chest x-ray that showed extensive right upper lobe cavitating pneumonia. CAT scan of the chest was also done that showed an extensive confluent area of airspace disease with central cavitation involving the right upper lobe mainly and extending to the right lower lobe. This infiltrate was extending posterior to the right lower lobe. There is a central cavitation. L eft lung is clear and there is underlying emphysema. There was also evidence of lymphadenopathy involving the right paratracheal chain the largest lymph node measuring around 12 mm in size. No exposure to TB. No history of HIV. Patient also checked positive for Covid 19. No previous vaccination. The patient is seen today 02/12/2022 in follow-up on the selective care unit. He is currently sitting up in bed. Awake and alert in no acute distress. He remains in mild respiratory distress. Approximately 3:00 this morning the patient had a near respiratory arrest staff found him without his oxygen and cyanotic. Arterial blood gases revealed a PaO2 of 87, pCO2 98 and a pH of 7.1 400% FiO2. Follow-up blood gases revealed a PaO2 of 119. PCO2 of 78 and a pH of 7.23. He was emergently placed on BiPAP and did recover. He required a health and safety technician to keep his mask on. He is currently on 15 L nonrebreather mask. He is afebrile. Hemodynamically stable. He is quite angry and agitated. He keeps insisting he wants to go home. Chest x-ray continues to show persistent right upper lung irregular consolidation with foci of air and right upper lung volume loss with less prominent lower lung consolidation and/or atelectasis. No significant change. Computed tomography scan of the chest revealed possible cavitation in the setting of necrotizing pneumonia. There is enlarged mediastin al lymph nodes. Infectious versus underlying mass. No pulmonary embolism. Blood cultures revealed no growth. White count 18.6. Hemoglobin 10.4. Sodium 136. Potassium 4.5. BUN 15. Creatinine 0.39. Glucose 154. C-reactive protein 18.4. LDH 395. ProBNP 1520. He is continued on albuterol, IV Solu- Medrol, Spiriva. Antibiotics in the form of Zosyn and Levaquin. He is receiving Lovenox for DVT prophylaxis. Vitamin supplements. Remains in the CIWA protocol. The patient is seen today 02/13/2022 in follow-up on the selective care unit. He is currently resting in bed. Awake and alert in no acute distress. He is quite weak and debilitated. Maintaining O2 saturation in the mid 90s on 9 L high flow nasal cannula. Modified barium swallow did not reveal any evidence of tracheal aspiration. No nasopharyngeal aspiration. No tender penetration. Recommended initiating chopped diet/and liquids per speech therapy. He has had a PICC line placed. He's been initiated on TPN and lipids for nutritional support. Blood cultures revealed no growth.sodium 137. Potassium 4.6. Bicarb 33. BUN 17. Creatinine 0.33. He is continued on bronchodilators, IV Solu-Medrol, antibiotics in the form of Zosyn and linezolid. Remains in the CIWA protocol. The patient is seen today 02/14/2022 in follow-up on the selective care unit. He is currently awake and alert. He's been quite restless. Trying to climb out of bed. currently requiring 9 L high flow nasal cannula to maintain O2 saturations in the 90s. He's been afebrile. He remains quite cachectic. Barium swallow did not reveal any evidence of aspiration. Blood cultures reveal no growth. sodium 135. Potassium 3.9. BUN 20. Creatinine 0.38. Glucose 111. Pro-calcitonin 0.19. C-reactive protein 7.5. He remains on Zosyn and Linezolid. Being nourished with TPN and lipids. Remains in the CIWA protocol. Lovenox for DVT prophylaxis. Objective - Vital Signs Vital signs: Vital Signs Temp 96.8 F L 02/14/22 04:00 Pulse 108 H 02/14/22 08:00 Resp 18 02/14/22 08:00 BP 146/80 02/14/22 04:00 Pulse Ox 92 L 02/14/22 04:00 FiO2 50 02/13/22 15:07 Intake & Output 02/13/22 02/14/22 02/14/22 18:59 06:59 18:59 Intake Total 660 Output Total 204 Balance -204 660 Weight 54.885 kg Intake: Oral 660 Output: Urine 200 Urine/Stool Mix 4 Other: Voiding Method Urinal Urinal Urinal Diaper Diaper Diaper # Voids 3 - Exam GENERAL: The patient is a 61-year-old male. Frail, cachectic and the patient carries a body mass index of 17.9. Currently on 9 L O2 per high flow nasal cannula HEENT: Pupils are round and equally reacting to light. EOMI. No scleral icterus. No conjunctival pallor. Normocephalic, atraumatic. No pharyngeal erythema. No thyromegaly. CARDIOVASCULAR: S1 and S2 present. No murmurs, rubs, or gallops. PULMONARY: Diminished breath sounds and decreased air entry on both lung andino, more on the right side, no wheezing or crackles. ABDOMEN: Soft, nontender, nondistended, normoactive bowel sounds. No palpable organomegaly. MUSCULOSKELETAL: No joint swelling or deformity. EXTREMITIES: No cyanosis, clubbing, or pedal edema. NEUROLOGICAL: Gross neurological examination did not reveal any focal deficits. SKIN: No rashes. no petechiae. - Labs CBC & Chem 7: 02/12/22 02:59 02/14/22 06:02 Labs: Abnormal Lab Results - Last 24 Hours (Table) 02/13/22 02/14/22 02/14/22 Range/Units 07:04 05:25 06:02 Sodium 135 L (137-145) mmol/L Chloride 97 L (98-107) mmol/L Carbon Dioxide 37 H (22-30) mmol/L Creatinine 0.38 L (0.66-1.25) mg/dL Glucose 111 H (74-99) mg/dL POC Glucose (mg/dL) 194 H (70-110) mg/dL Calcium 7.1 L (8.4-10.2) mg/dL Phosphorus 2.2 L (2.5-4.5) mg/dL Procalcitonin 0.19 H (0.02-0.09) ng/mL Microbiology - Last 24 Hours (Table) 02/10/22 14:45 Blood Culture - Preliminary Blood No Growth after 72 hours 02/10/22 16:20 Blood Culture - Preliminary Blood No Growth after 72 hours 02/10/22 16:35 Blood Culture - Preliminary Blood No Growth after 72 hours Assessment and Plan Assessment: Acute/subacute/chronic hypoxic respiratory failure, currently on 9 L of oxygen. The patient has not had any medical evaluation in the past and he has ignored his health for many years, is not known to us. We suspect that they hypoxemia somewhat subacute. Extensive right upper lobe pneumonia with necrotizing changes and cavitation. Rule out gram-negative/anaerobic pneumonia. Malignancy cannot be completely excluded. TB is felt to be less likely. Pro-calcitonin 0.19. Legionella screen negative. Currently on Zosyn and Linezolid. Covid 19 positive, nonvaccinated Acute leukocytosis Multiple substance abuse including marijuana/cocaine and possibly alcoholism Chronic smoker Cachexia with ongoing weight loss with a body mass index is 17.9 COPD with emphysematous changes bilaterally as evidenced on the CAT scan of the chest Plan: The patient was seen and evaluated Medications and labs reviewed Continue Zosyn and Linezolid Continue bronchodilators, steroids PICC line placed and initiated on TPN/lipids Remains in the CIWA protocol Prognosis is guarded He has been quite restless and noncompliant May require bronchoscopy with biopsy once recovered from the CoVID infection We will continue to follow I have personally seen and examined the patient, performed the documentation and the assessment and plan as written. Number of minutes spent on the visit: 10.
[2022-02-14] MEDS: 1: MVI, ADULT NO.4 WITH VIT K 10 ML, TRACE (CONC-1ML/DOSE) 1 ML in AMINO ACID 5%-D20W+LY IV SCH ×3 (19:04)
--- NOTE | 2022-02-14 22:34 | P.PN ---
Subjective Progress Note Date: 02/14/22 Principal diagnosis: Right-sided pneumonia with cavitation Patient is a 61-year-old male with a past medical history sniffing and for smoking substance abuse patient was brought into the ER 2 days ago for evaluation of increasing shortness of breath and a cough that been getting worse for the last 2 weeks patient did have a moderate intensity cough and has been bringing up some green to yellow sputum, patient did have a CT of the chest with evidence of extensive right-sided consolidation and some cavitation concern for possible aspiration pneumonia patient also have a positive covid test. On today's evaluation that is 02/14/2022, the patient continues to be afebrile, the patient is currently on 9 L high flow oxygen, patient is restless and trying to climb out of the bed with a sitter at the bedside, not a very good historian no vomiting or diarrhea has been reported by the nursing staff Objective - Vital Signs Vital signs: Vital Signs Temp 96.8 F L 02/14/22 04:00 Pulse 108 H 02/14/22 08:00 Resp 18 02/14/22 08:00 BP 146/80 02/14/22 04:00 Pulse Ox 92 L 02/14/22 04:00 FiO2 50 02/13/22 15:07 Intake & Output 02/13/22 02/14/22 02/14/22 18:59 06:59 18:59 Output Total 204 Balance -204 Weight 54.885 kg Output: Urine 200 Urine/Stool Mix 4 Other: Voiding Method Urinal Urinal Urinal Diaper Diaper Diaper # Voids 3 - Exam GENERAL DESCRIPTION: Middle-age male lying in bed in no distress RESPIRATORY SYSTEM: Unlabored breathing , coarse breath sounds bilaterally HEART: S1 S2 regular rate and rhythm , ABDOMEN: Soft , no tenderness EXTREMITIES: No edema feet - Labs CBC & Chem 7: 02/12/22 02:59 02/14/22 06:02 Labs: Abnormal Lab Results - Last 24 Hours (Table) 02/13/22 02/14/22 02/14/22 Range/Units 07:04 05:25 06:02 Sodium 135 L (137-145) mmol/L Chloride 97 L (98-107) mmol/L Carbon Dioxide 37 H (22-30) mmol/L Creatinine 0.38 L (0.66-1.25) mg/dL Glucose 111 H (74-99) mg/dL POC Glucose (mg/dL) 194 H (70-110) mg/dL Calcium 7.1 L (8.4-10.2) mg/dL Phosphorus 2.2 L (2.5-4.5) mg/dL Procalcitonin 0.19 H (0.02-0.09) ng/mL Microbiology - Last 24 Hours (Table) 02/10/22 14:45 Blood Culture - Preliminary Blood No Growth after 72 hours 02/10/22 16:20 Blood Culture - Preliminary Blood No Growth after 72 hours 02/10/22 16:35 Blood Culture - Preliminary Blood No Growth after 72 hours Assessment and Plan (1) Cavitary lesion of lung Current Visit: Yes Status: Acute Code(s): J98.4 - OTHER DISORDERS OF LUNG SNOMED Code(s): 579203437 (2) Pneumonia Current Visit: Yes Status: Acute Code(s): J18.9 - PNEUMONIA, UNSPECIFIED ORGANISM SNOMED Code(s): 875228070 Plan: 1patient presented to hospital with acute respiratory failure which is likely multifactorial in this patient who did have a extensive right-sided consolidation and some cavitation with a question of possible aspiration pneumonia versus malignancy as the patient is currently not running any fever and did have extensive history of smoking. Patient also have a positive COVID test and a question of post-COVID bacterial pneumonia needs to be ruled out as well however the patient procalcitonin was not significantly elevated. 2we will try to obtain a sputum for gram stain and culture. 3patient condition remains to be critical, patient to continue the patient on Zosyn and Zyvox and monitor his clinical course closely Time with Patient: Less than 30
[2022-02-15] MEDS: PIPERACILLIN-TAZOBACTAM 3.375 GM in SODIUM CHLORIDE 0.9% 100 ML IVPB SCH ×2 (02:10→10:20)
[2022-02-15] MEDS: TIOTROPIUM 2.5 MCG INHALER INHALATION SCH (08:26)
[2022-02-15] MEDS: ALBUTEROL HFA INHALER INHALATION SCH ×3 (08:26→15:41)
[2022-02-15 08:58] LABS: African American GFR (CKD) >90 (>60 ml/min/1.73 sqM); Anion Gap -2 mmol/L; Blood Urea Nitrogen 19 mg/dL (9-20); Calcium 7.5 mg/dL (8.4-10.2); Carbon Dioxide 35 mmol/L (22-30); Chloride 102 mmol/L (98-107); Glucose 102 mg/dL (74-99); Non-African American GFR(CKD) >90 (>60 ml/min/1.73 sqM); Phosphorus 2.6 mg/dL (2.5-4.5); Potassium 4.1 mmol/L (3.5-5.1); Sodium 135 mmol/L (137-145)
[2022-02-15] MEDS: methylPREDNISolone SOD SUCCI 40 MG/ML 1 ML VIAL IV SCH (09:52)
[2022-02-15] MEDS: ASPIRIN 325 MG TAB PO SCH (09:52)
[2022-02-15] MEDS: FAMOTIDINE 20 MG/2 ML VIAL IV SCH (09:52)
[2022-02-15] MEDS: ENOXAPARIN 40 MG/0.4 ML SYRINGE SQ SCH (09:52)
[2022-02-15] MEDS: CHOLECALCIFEROL 25 MCG (1000 IU) TABLET PO SCH (09:52)
[2022-02-15] MEDS: LINEZOLID 600 MG in DEXTROSE/WATER 1 300ML.BAG IVPB SCH (09:53)
[2022-02-15] MEDS: ZINC SULFATE 220 MG CAP PO SCH (09:53)
[2022-02-15] MEDS: ASCORBIC ACID 500 MG TAB PO SCH (09:53)
[2022-02-15] MEDS: THIAMINE 100 MG/ML 2 ML VIAL IVP SCH (09:53)
[2022-02-15] MEDS: ALBUTEROL HFA INHALER INHALATION PRN (10:24)
--- NOTE | 2022-02-15 11:36 | P.PN ---
Subjective Progress Note Date: 02/15/22 61-year-old male patient, currently hospitalized for 4 and extensive pneumonia involving the right lung. The patient is a very poor historian. The patient has history of smoking, substance abuse in the form of marijuana and cocaine in addition to call drinking. He has done no medical follow-up over the years and he has essentially ignored his health and his condition has been progressively getting worse to the point where the patient started having worsening shortness of breath and was brought into the hospital for further evaluation. He was brought in by family member. He has marked diminished appetite, weight loss, looks eczema debilitated cachectic and weak and has a body mass index of 17.9. He has increased cough and congestion. He has had remote history of hemoptysis approximately 4 weeks ago 1. No pleurisy. No hemoptysis. No chest pain. No nausea or vomiting or abdominal pain. He has a marked diminished oral intake in terms of food and he has not met his cardiac requirements over the years. Drinks around 6 beers a day. He also takes oxycodone as and seems to be depende nt on oxycodone for many years. In the emergency, the patient was found to be hypoxic and placed on all his of O2 nasal cannula. White cell count was elevated at 16.5. Troponins were negative. BUN was 9 with a creatinine of 0.3. The proBNP level was 1670. The RSV and influenza screen were all negative. The patient had a chest x-ray that showed extensive right upper lobe cavitating pneumonia. CAT scan of the chest was also done that showed an extensive confluent area of airspace disease with central cavitation involving the right upper lobe mainly and extending to the right lower lobe. This infiltrate was extending posterior to the right lower lobe. There is a central cavitation. L eft lung is clear and there is underlying emphysema. There was also evidence of lymphadenopathy involving the right paratracheal chain the largest lymph node measuring around 12 mm in size. No exposure to TB. No history of HIV. Patient also checked positive for Covid 19. No previous vaccination. The patient is seen today 02/12/2022 in follow-up on the selective care unit. He is currently sitting up in bed. Awake and alert in no acute distress. He remains in mild respiratory distress. Approximately 3:00 this morning the patient had a near respiratory arrest staff found him without his oxygen and cyanotic. Arterial blood gases revealed a PaO2 of 87, pCO2 98 and a pH of 7.1 400% FiO2. Follow-up blood gases revealed a PaO2 of 119. PCO2 of 78 and a pH of 7.23. He was emergently placed on BiPAP and did recover. He required a environmental health safety engineer to keep his mask on. He is currently on 15 L nonrebreather mask. He is afebrile. Hemodynamically stable. He is quite angry and agitated. He keeps insisting he wants to go home. Chest x-ray continues to show persistent right upper lung irregular consolidation with foci of air and right upper lung volume loss with less prominent lower lung consolidation and/or atelectasis. No significant change. Computed tomography scan of the chest revealed possible cavitation in the setting of necrotizing pneumonia. There is enlarged mediastin al lymph nodes. Infectious versus underlying mass. No pulmonary embolism. Blood cultures revealed no growth. White count 18.6. Hemoglobin 10.4. Sodium 136. Potassium 4.5. BUN 15. Creatinine 0.39. Glucose 154. C-reactive protein 18.4. LDH 395. ProBNP 1520. He is continued on albuterol, IV Solu- Medrol, Spiriva. Antibiotics in the form of Zosyn and Levaquin. He is receiving Lovenox for DVT prophylaxis. Vitamin supplements. Remains in the [facility] protocol. The patient is seen today 02/13/2022 in follow-up on the selective care unit. He is currently resting in bed. Awake and alert in no acute distress. He is quite weak and debilitated. Maintaining O2 saturation in the mid 90s on 9 L high flow nasal cannula. Modified barium swallow did not reveal any evidence of tracheal aspiration. No nasopharyngeal aspiration. No tender penetration. Recommended initiating chopped diet/and liquids per speech therapy. He has had a PICC line placed. He's been initiated on TPN and lipids for nutritional support. Blood cultures revealed no growth.sodium 137. Potassium 4.6. Bicarb 33. BUN 17. Creatinine 0.33. He is continued on bronchodilators, IV Solu-Medrol, antibiotics in the form of Zosyn and linezolid. Remains in the CIWA protocol. The patient is seen today 02/14/2022 in follow-up on the selective care unit. He is currently awake and alert. He's been quite restless. Trying to climb out of bed. currently requiring 9 L high flow nasal cannula to maintain O2 saturations in the 90s. He's been afebrile. He remains quite cachectic. Barium swallow did not reveal any evidence of aspiration. Blood cultures reveal no growth. sodium 135. Potassium 3.9. BUN 20. Creatinine 0.38. Glucose 111. Pro-calcitonin 0.19. C-reactive protein 7.5. He remains on Zosyn and Linezolid. Being nourished with TPN and lipids. Remains in the CIWA protocol. Lovenox for DVT prophylaxis. The patient is seen today 02/15/2022 in follow-up on [facility] care unit. He is currently sitting up at the bedside. Awake and alert in no acute distress. More cooperative today. More reasonable. He is currently on 10 L high flow nasal cannula to maintain O2 saturations in the 90s. He denies any worsening shortness of breath, cough or congestion. No fever or chills. Blood cultures reveal no growth. Sodium 135. Potassium 4.1. Bicarb 35. BUN 19. Creatinine 0.43. Glucose 102. He is continued on linezolid and Zosyn. Remains on IV Solu-Medrol, bronchodilators. Lovenox for DVT prophylaxis and vitamin supplements. Objective - Vital Signs Vital signs: Vital Signs Temp 97.7 F 02/15/22 09:50 Pulse 59 L 02/15/22 09:50 Resp 20 02/15/22 09:50 BP 130/73 02/15/22 09:50 Pulse Ox 96 02/15/22 09:50 FiO2 50 02/13/22 15:07 Intake & Output 02/14/22 02/15/22 02/15/22 18:59 06:59 18:59 Intake Total 778 236 Output Total 351 Balance 778 -351 236 Weight 54.885 kg Intake: Oral 778 236 Output: Urine 350 Urine/Stool Mix 1 Other: Voiding Method Urinal Urinal Urinal Diaper Diaper Diaper # Voids 2 # Bowel Movements 1 - Exam GENERAL: The patient is a 61-year-old male. More calm and cooperative today. Frail, cachectic and the patient carries a body mass index of 17.9. Currently on 10 L O2 per high flow nasal cannula HEENT: Pupils are round and equally reacting to light. EOMI. No scleral icterus. No conjunctival pallor. Normocephalic, atraumatic. No pharyngeal erythema. No thyromegaly. CARDIOVASCULAR: S1 and S2 present. No murmurs, rubs, or gallops. PULMONARY: Diminished breath sounds and decreased air entry on both lung andino, more on the right side, no wheezing or crackles. ABDOMEN: Soft, nontender, nondistended, normoactive bowel sounds. No palpable organomegaly. MUSCULOSKELETAL: No joint swelling or deformity. EXTREMITIES: No cyanosis, clubbing, or pedal edema. NEUROLOGICAL: Gross neurological examination did not reveal any focal deficits. SKIN: No rashes. no petechiae. - Labs CBC & Chem 7: 02/12/22 02:59 02/15/22 07:48 Labs: Abnormal Lab Results - Last 24 Hours (Table) 02/15/22 Range/Units 07:48 Sodium 135 L (137-145) mmol/L Carbon Dioxide 35 H (22-30) mmol/L Creatinine 0.43 L (0.66-1.25) mg/dL Glucose 102 H (74-99) mg/dL Calcium 7.5 L (8.4-10.2) mg/dL Microbiology - Last 24 Hours (Table) 02/10/22 14:45 Blood Culture - Preliminary Blood No Growth after 96 hours 02/10/22 16:35 Blood Culture - Preliminary Blood No Growth after 96 hours 02/10/22 16:20 Blood Culture - Preliminary Blood No Growth after 96 hours Assessment and Plan Assessment: Acute/subacute/chronic hypoxic respiratory failure, currently on 10 L of oxygen. The patient has not had any medical evaluation in the past and he has ignored his health for many years, is not known to us. We suspect that they hypoxemia somewhat subacute. Extensive right upper lobe pneumonia with necrotizing changes and cavitation. Rule out gram-negative/anaerobic pneumonia. Malignancy cannot be completely excluded. TB is felt to be less likely. Pro-calcitonin 0.19. Legionella screen negative. Currently on Zosyn and Linezolid. Covid 19 positive, nonvaccinated Acute leukocytosis Multiple substance abuse including marijuana/cocaine and possibly alcoholism Chronic smoker Cachexia with ongoing weight loss with a body mass index is 17.9 COPD with emphysematous changes bilaterally as evidenced on the CAT scan of the chest Plan: The patient was seen and evaluated Medications and labs reviewed Continue Zosyn and Linezolid Continue bronchodilators, steroids PICC line removed by patient Remains in the CIWA protocol Prognosis is guarded The patient is requesting hospice consult We'll await further direction based on their discussion Follow-up chest x-ray in a.m. We will continue to follow I have personally seen and examined the patient, performed the documentation and the assessment and plan as written. Number of minutes spent on the visit: 10.
[2022-02-15 12:52] VITALS: BP 115/70; PULSE 70; RESP 18; TEMP 97.8
--- NOTE | 2022-02-15 14:05 | P.PN ---
Subjective Progress Note Date: 02/15/22 Principal diagnosis: Right-sided pneumonia with cavitation Patient is a 61-year-old male with a past medical history sniffing and for smoking substance abuse patient was brought into the ER 2 days ago for evaluation of increasing shortness of breath and a cough that been getting worse for the last 2 weeks patient did have a moderate intensity cough and has been bringing up some green to yellow sputum, patient did have a CT of the chest with evidence of extensive right-sided consolidation and some cavitation concern for possible aspiration pneumonia patient also have a positive covid test. On today's evaluation that is 02/15/2022, the patient remains to be afebrile, the patient is more awake alert and appropriate today is currently on a 10 L high flow oxygen. Denies having any chest pain he did have a cough with occasional sputum no nausea no vomiting no abdominal pain or diarrhea Objective - Vital Signs Vital signs: Vital Signs Temp 97.8 F 02/15/22 12:40 Pulse 70 02/15/22 12:40 Resp 18 02/15/22 12:40 BP 115/70 02/15/22 12:40 Pulse Ox 99 02/15/22 12:40 FiO2 50 02/13/22 15:07 Intake & Output 02/14/22 02/15/22 02/15/22 18:59 06:59 18:59 Intake Total 778 236 Output Total 351 Balance 778 -351 236 Weight 54.885 kg Intake: Oral 778 236 Output: Urine 350 Urine/Stool Mix 1 Other: Voiding Method Urinal Urinal Urinal Diaper Diaper Diaper # Voids 2 # Bowel Movements 1 - Exam GENERAL DESCRIPTION: Middle-age male lying in bed in no distress RESPIRATORY SYSTEM: Unlabored breathing , coarse breath sounds bilaterally HEART: S1 S2 regular rate and rhythm , ABDOMEN: Soft , no tenderness EXTREMITIES: No edema feet - Labs CBC & Chem 7: 02/12/22 02:59 02/15/22 07:48 Labs: Abnormal Lab Results - Last 24 Hours (Table) 02/15/22 Range/Units 07:48 Sodium 135 L (137-145) mmol/L Carbon Dioxide 35 H (22-30) mmol/L Creatinine 0.43 L (0.66-1.25) mg/dL Glucose 102 H (74-99) mg/dL Calcium 7.5 L (8.4-10.2) mg/dL Microbiology - Last 24 Hours (Table) 02/10/22 14:45 Blood Culture - Preliminary Blood No Growth after 96 hours 02/10/22 16:35 Blood Culture - Preliminary Blood No Growth after 96 hours 02/10/22 16:20 Blood Culture - Preliminary Blood No Growth after 96 hours Assessment and Plan (1) Cavitary lesion of lung Current Visit: Yes Status: Acute Code(s): J98.4 - OTHER DISORDERS OF LUNG SNOMED Code(s): 075197413 (2) Pneumonia Current Visit: Yes Status: Acute Code(s): J18.9 - PNEUMONIA, UNSPECIFIED ORGANISM SNOMED Code(s): 897583496 Plan: 1patient presented to hospital with acute respiratory failure which is likely multifactorial in this patient who did have a extensive right-sided consolidation and some cavitation with a question of possible aspiration pneumonia versus malignancy as the patient is currently not running any fever and did have extensive history of smoking. Patient also have a positive COVID test and a question of post-COVID bacterial pneumonia needs to be ruled out as well however the patient procalcitonin was not significantly elevated. 2RN has been instructed again to obtain a sputum for gram stain and culture. 3patient seemed to have some clinical improvement, patient to continue the patient on Zosyn and Zyvox and monitor his clinical course closely Time with Patient: Less than 30
--- NOTE | 2022-02-15 15:37 | P.PN ---
Subjective Principal diagnosis: Psychiatric progress note I saw the patient earlier on to assess him regarding his negative behavior towards medical treatment . Apparently he was going through protracated withdrawl from his multiple subsances of abuse: opiates alcohol with negative impact on his recent admisison for respiratory failre with pneumonia and COVID-19 (+). He was reported by the nursing staff to wanting to be discharged and to negate all medical treatment on 2021. He was coughing and lying nakded in the bathroom talking somewhat incoherently. Today i have an update progress from the nurisng staff; His sensorium has been normalized he was resting comfortably in bed wih the nasal prong of oxygen in place. The staff was makde aware he would be transported through Hospice service back to his own home : his sister would be around with him. MSE: there was overall improvement in his affect, thught and sensorium. I asked him whether he was aware of his general need for medicaiton: he stated he would continue on antibiotics and oxygen. He was lucid oriened with no formal thought disorder. He was not guar ded and irritability has largely resolved. Earlier, he was engaged to accept substance use counselling . Impression: Delirium related to pneumonia, respiratry failure and comorbid substance use has largely resovled with his pulmonary and cardiac status normalized for him to return home with proper support. comorbid Risk relapse from his severe substance use would have to be addressed in the commmunity via his PCP referral . He was prescribed previously by another Psychiatrist Mirtazepine 7.5 mg po qhs ; I would recommend for his PCP to continue provided no further REs/CV comprosmise occurs. Objective - Vital Signs Vital signs: Vital Signs Temp 97.8 F 02/15/22 12:40 Pulse 70 02/15/22 12:40 Resp 18 02/15/22 12:40 BP 115/70 02/15/22 12:40 Pulse Ox 99 02/15/22 12:40 FiO2 50 02/13/22 15:07 Intake & Output 02/14/22 02/15/22 02/15/22 18:59 06:59 18:59 Intake Total 778 354 Output Total 351 Balance 778 -351 354 Weight 54.885 kg Intake: Oral 778 354 Output: Urine 350 Urine/Stool Mix 1 Other: Voiding Method Urinal Urinal Urinal Diaper Diaper Diaper # Voids 2 # Bowel Movements 1 2 - Labs CBC & Chem 7: 02/12/22 02:59 02/15/22 07:48 Labs: Abnormal Lab Results - Last 24 Hours (Table) 02/15/22 Range/Units 07:48 Sodium 135 L (137-145) mmol/L Carbon Dioxide 35 H (22-30) mmol/L Creatinine 0.43 L (0.66-1.25) mg/dL Glucose 102 H (74-99) mg/dL Calcium 7.5 L (8.4-10.2) mg/dL Microbiology - Last 24 Hours (Table) 02/10/22 14:45 Blood Culture - Preliminary Blood No Growth after 96 hours 02/10/22 16:35 Blood Culture - Preliminary Blood No Growth after 96 hours 02/10/22 16:20 Blood Culture - Preliminary Blood No Growth after 96 hours
--- NOTE | 2022-02-19 19:15 | CDI ---
Documentation Clarification Form Date: 02/19/2022 07:00:22 PM From: Montse Chow Phone: Admit Date: 02/10/2022 03:53:00 PM Patient Name: Villa Khan Visit Number: [id number] Discharge Date: 02/15/2022 05:00:00 PM ATTENTION: The Clinical Documentation Specialists (CDI) and [facility] Coding Staff appreciate your assistance in clarifying documentation. Please respond to the clarification below the line at the bottom and electronically sign. The CDI & [facility] [employer] Coding staff will review the response and follow-up if needed. Please note: Queries are made part of the Legal Health Record. If you have any questions, please contact the author of this message via ITS. Dr. Michaels E Sheet Moderate to severe calories and protein malnutrition is documented per H&P. Additional clarification regarding the severity of malnutrition is requested. History/Risk Factors: 61yo M, COVID PNA- Unvacc, Rt lung mass 2.7 cm, AECOPD, A/C H&HRF, smoker, Alcohol abuse, opioid dependence, cocaine abuse, cannabis abuse, Pulmonary candidiasis Clinical Indicators: Cachexia with ongoing weight loss Current BMI: 17.9 Treatment: Dietary Consult: Sister agrees for TPN if it is indicated however patient is able to eat, discussed the case with our dietitian consult and we placed him on ensure for now. PPN/TPN: PICC line placed and initiated on TPN/lipids Please clarify the type of malnutrition, if known: [ ] Moderate Protein-Calorie Malnutrition [ ] Severe Protein-Calorie Malnutrition [ ] Other condition, please specify [ ] Unable to Determine (Template Last Revised: April 2020) Severe Protein-Calorie Malnutrition MTDD
--- NOTE | 2022-02-19 19:25 | CDI ---
Documentation Clarification Form Date: 02/19/2022 07:15:45 PM From: Montse Chow Phone: Admit Date: 02/10/2022 03:53:00 PM Patient Name: Villa Khan Visit Number: [id number] Discharge Date: 02/15/2022 05:00:00 PM ATTENTION: The Clinical Documentation Specialists (CDI) and [facility] Coding Staff appreciate your assistance in clarifying documentation. Please respond to the clarification below the line at the bottom and electronically sign. The CDI & [facility] Coding staff will review the response and follow-up if needed. Please note: Queries are made part of the Legal Health Record. If you have any questions, please contact the author of this message via ITS. Dr. Michaels E Sheet The patient presented with the following clinical indicators: leukocytosis, tachycardia and tachypnea. Additional clarification regarding the etiology/cause of the clinical indicators is requested. History/Risk Factors: 61yo M, COVID PNA- Unvacc, Rt lung mass 2.7 cm, AECOPD, smoker, A/C H&HRF, Alcohol, cocaine & cannabis abuse, opioid dependence, Pulmonary candidiasis Clinical Indicators: WBC: 16.5 Lactic acid: 1.2 Blood cultures: revealed no growth Vitals signs: 02/10/22 13:59 97.7 F 91 24 93/63 95an Treatment: ID Consult: Continue with antibiotic, currently on Zosyn and Zyvox per ID team consult Antibiotics: Continue with a breathing treatment and bronchodilator. Continue with antibiotic, currently on Zosynand Levaquin. In your professional opinion, please clarify if these findings signify one of the following: [ ] Sepsis due to please specify [ ] Sepsis ruled out [ ] Other, please specify [ ] Unable to determine SIRS Criteria: 2 or more of the following may indicate SIRS -Temperature < 96.8F (36C) or > 101.0F (38.3C) -Heart Rate > 90 bpm -Respiratory Rate > 20 breaths/min or PaCO2 < 32 mmHg -White Blood Cell Count > 12,000 or < 4,000 cells/mm3 or > 10% bands (Template Last Reviewed: March 2020) no sepsis MTDD
== END 2022-02-15 17:00 | disposition still patient (30) | DRG 177 ==
LOC: EC 13:57 → 3SCARD 15:53
PROVIDERS: ADMIT Internal Medicine; ATTEND Internal Medicine
PROC: HZ2ZZZZ Detoxification Services for Substance Abuse Treatment (ICD-10-PCS; 2022-02-10)
PROC: 02HV33Z Insertion of Infusion Device into Superior Vena Cava, Percutaneous Approach (ICD-10-PCS; 2022-02-12)
PROC: 5A09357 Assistance with Respiratory Ventilation, Less than 24 Consecutive Hours, Continuous Positive Airway Pressure (ICD-10-PCS; principal; 2022-02-12 08:30)
PROC: 3E0436Z Introduction of Nutritional Substance into Central Vein, Percutaneous Approach (ICD-10-PCS; 2022-02-13)
PROC: 5A0935A Assistance with Respiratory Ventilation, Less than 24 Consecutive Hours, High Flow/Velocity Cannula (ICD-10-PCS; 2022-02-13)
DX: U07.1 COVID-19 (principal); B37.1 Pulmonary candidiasis; J96.21 Acute and chronic respiratory failure with hypoxia; J96.22 Acute and chronic respiratory failure with hypercapnia; J12.82 Pneumonia due to coronavirus disease 2019; E43 Unspecified severe protein-calorie malnutrition; R64 Cachexia; F05 Delirium due to known physiological condition; C34.11 Malignant neoplasm of upper lobe, right bronchus or lung; Z68.1 Body mass index [BMI] 19.9 or less, adult; F11.20 Opioid dependence, uncomplicated; F10.139 Alcohol abuse with withdrawal, unspecified; J43.9 Emphysema, unspecified; F14.10 Cocaine abuse, uncomplicated; F12.10 Cannabis abuse, uncomplicated; F32.A Depression, unspecified; R54 Age-related physical debility; Z51.5 Encounter for palliative care; R00.0 Tachycardia, unspecified; F17.210 Nicotine dependence, cigarettes, uncomplicated; J98.4 Other disorders of lung; R59.0 Localized enlarged lymph nodes; R23.0 Cyanosis; Z28.310 Unvaccinated for COVID-19; Z79.899 Other long term (current) drug therapy; Z63.0 Problems in relationship with spouse or partner; Z91.199 Patient's noncompliance with other medical treatment and regimen due to unspecified reason; Z28.20 Immunization not carried out because of patient decision for unspecified reason
CPT/HCPCS: 36415; 36573; 36600; 71045; 71046; 71260; 74230; 80048; 80053; 80061; 80306; 82330; 82805; 83605; 83615; 83735; 83880; 84100; 84145; 84484; 85025; 85027; 85610; 85730; 86140; 86480; 87040; 87070; 87205; 87449; 87636; 93005; 94640; 94660; 94760; 96361; 96365; 96366; 96367; 96375; 99285

== ENCOUNTER 2022-07-03 20:38 | Inpatient (IN) | payer OTHER ==
[2022-07-03] MEDS ORDERED: SODIUM CHLORIDE 0.9% 1,000 ML IV STA (20:41)
--- NOTE | 2022-07-03 21:03 | ED ---
Dizziness HPI - General Chief Complaint: Syncope Stated Complaint: Syncope Time Seen by Provider: 07/03/22 20:41 Source: patient, EMS, RN notes reviewed, old records reviewed Mode of arrival: EMS Limitations: no limitations - History of Present Illness Initial Comments: This is a 63-year-old male to the emergency department for evaluation patient current smoker with possible diagnosis of lung cancer. Patient presents today with 3-4 episodes of syncope or passing out shortness of breath. Initial episodes came after walking up a flight of stairs in the basement to the main level home. Patient did admit to shortness of breath at the time. Daughter did assist him as he passed out, EMS also stated patient pass out daughter believes again 3-4 times. Patient has minimal shortness of breath currently no recent travel history or sick contacts no fevers. Does admit to recent increasing cough. No history of headache chest pain or abdominal pain MD Complaint: dizziness, other (Patient did have a syncopal event multiple times prior to arrival) -: hour(s) Timing: sudden onset History of Same: No History of Trauma: No Improves With: nothing Worsens With: exertion Associated Symptoms: cough, shortness of breath, syncope, weakness - Related Data Home Medications Medication Instructions Recorded Confirmed ALPRAZolam [Xanax] 1 mg PO TID 07/03/22 07/03/22 Albuterol Sulfate [Albuterol 2 puff PO RT-QID PRN 07/03/22 07/03/22 Sulfate Hfa] Budesonide/Formoterol Fumarate 2 puff INHALATION RT-DAILY 07/03/22 07/03/22 [Symbicort 160-4.5 Mcg Inhaler] Ibuprofen [Motrin] 400 mg PO Q8HR PRN 07/03/22 07/03/22 Ipratropium-Albuterol Nebulize 3 ml INHALATION RT-BID 07/03/22 07/03/22 [Duoneb 0.5 mg-3 mg/3 ml Soln] Omeprazole [PriLOSEC] 20 mg PO BID PRN 07/03/22 07/03/22 Ondansetron [Zofran] 4 mg PO Q8HR PRN 07/03/22 07/03/22 oxyCODONE-APAP 10-325MG [Percocet 1 tab PO QID 07/03/22 07/03/22 10-325 mg] predniSONE 10 mg PO PC-BRKFST 07/03/22 07/03/22 Allergies Allergy/AdvReac Type Severity Reaction Status Date / Time No Known Allergies Allergy Verified 07/03/22 21:25 Review of Systems ROS Statement: Those systems with pertinent positive or pertinent negative responses have been documented in the HPI. ROS Other: All systems not noted in ROS Statement are negative. Past Medical History Past Medical History: No Reported History, COPD Additional Past Medical History / Comment(s): Lung CA History of Any Multi-Drug Resistant Organisms: None Reported Past Surgical History: Appendectomy Additional Past Surgical History / Comment(s): knee surgery x 2, shoulder surgery Past Anesthesia/Blood Transfusion Reactions: No Reported Reaction Past Psychological History: No Psychological Hx Reported Smoking Status: Current every day smoker Past Alcohol Use History: Daily Past Drug Use History: Marijuana General Exam Limitations: no limitations General appearance: alert, in no apparent distress Head exam: Present: atraumatic, normocephalic, normal inspection Eye exam: Present: normal appearance, PERRL, EOMI. Absent: scleral icterus, conjunctival injection, periorbital swelling ENT exam: Present: normal exam, mucous membranes dry Neck exam: Present: normal inspection. Absent: tenderness, meningismus, lymphadenopathy Respiratory exam: Present: respiratory distress, wheezes, accessory muscle use, decreased breath sounds, prolonged expiratory. Absent: rales, rhonchi, stridor Cardiovascular Exam: Present: regular rate, normal rhythm, normal heart sounds. Absent: systolic murmur, diastolic murmur, rubs, gallop, clicks GI/Abdominal exam: Present: soft, normal bowel sounds. Absent: distended, tenderness, guarding, rebound, rigid Extremities exam: Present: normal inspection, full ROM, normal capillary refill. Absent: tenderness, pedal edema, joint swelling, calf tenderness Back exam: Present: normal inspection Neurological exam: Present: alert, oriented X3, CN II-XII intact Psychiatric exam: Present: normal affect, normal mood Skin exam: Present: warm, dry, intact, normal color. Absent: rash Course Vital Signs 07/03/22 07/03/22 07/03/22 20:41 20:59 21:00 Temperature 97.8 F Pulse Rate 71 69 72 Respiratory 20 15 15 Rate Blood Pressure 138/91 O2 Sat by Pulse 98 96 Oximetry 07/03/22 07/03/22 07/03/22 21:30 22:00 22:04 Temperature Pulse Rate 66 68 67 Respiratory 16 16 Rate Blood Pressure 110/82 108/75 O2 Sat by Pulse 97 98 Oximetry 07/03/22 07/03/22 07/03/22 22:14 22:15 22:24 Temperature Pulse Rate 70 70 77 Respiratory Rate Blood Pressure O2 Sat by Pulse Oximetry - Reevaluation(s) Reevaluation #1: 07/03/22 22:32 Medical record is reviewed Reevaluation #2: 07/03/22 22:32 Patient symptoms are improving here in the ER Reevaluation #3: 07/03/22 22:32 Patient informed results questions answered Reevaluation #4: 07/03/22 22:32 Was pt. sent in by a medical professional or institution? @ -no Did you speak to anyone other than the patient for history? @ -no Did you review nursing and triage notes? @ -agree Were old charts reviewed? @ -no Differential Diagnosis? @ -prior EKG interpreted by me (3pts min.)? @ -yes X-rays interpreted by me (1pt min.)? @ -yes CT interpreted by me (1pt min.)? @ -no U/S interpreted by me (1pt. min.)? @ -no What testing was considered but not performed? (CT, X-rays, U/S, labs)? Why? @ -no What meds were considered but not given? Why? @ -no Did you discuss the management of the patient with other professionals? @ -no Did you rePNA,concile home meds? @ -no Was smoking cessation discussed for >3mins.? @ -no Was critical care preformed (if so, how long)? @ -no Were there social determinants of health that impacted care today? How? (H omelessness, low income, unemployed, alcoholism, drug addiction, transportation, low edu. Level, literacy, decrease access to med. care, [facility], rehab)? @ -no Was there de-escalation of care discussed even if they declined? (Discuss DNR or withdrawal of care, Hospice)? @ -no What co-morbidities impacted this encounter? (DM, HTN, Smoking, COPD, CAD, Cancer, CVA, Hep., AIDS, mental health diagnosis, sleep apnea, morbid obesity)? @ -none Was patient admitted / discharged? @ -dc Undiagnosed new problem with uncertain prognosis? @ -no Drug Therapy requiring intensive monitoring for toxicity (Heparin, Nitro, In sulin, Cardizem)? @ -no Were any procedures done? @ -no Diagnosis/symptom? @ -PNA,Syncope,COPD,Hypoxia Acute, or Chronic, or Acute on Chronic? @ -acute Uncomplicated (without systemic symptoms) or Complicated (systemic symptoms)? @ -complicated Side effects of treatment? @ -no Exacerbation, Progression, or Severe Exacerbation] @ -no Poses a threat to life or bodily function? @ -yes Reevaluation #5: 07/03/22 22:32 Differential Syncope: Valvular disease, hypertrophic cardiomyopathy, pulmonary embolism, tamponade, tachycardia, bradycardia, CO, hypovolemia, hemorrhage, dissection, anemia, intracranial hemorrhage, seizure, hypoglycemia, carbon monoxide poisoning, this is not meant to be an all-inclusive list. - Consultations Consultation #1: Spoke with Dr. Gunter agrees to admit this patient EKG Findings - EKG Comments: EKG Findings:: EKG is sinus 64 IA 165 QRS 82 QTC 426 Medical Decision Making - Medical Decision Making 62 male DEL with multiple syncopal events. Possible underlying lung cancer, pneumonia and COPD with hypoxia. Patient will be admitted for further supportive care and evaluation, monitoring and treatment - Lab Data Result diagrams: 07/03/22 20:48 07/03/22 20:48 Lab Results 07/03/22 07/03/22 07/03/22 Range/Units 20:48 20:48 20:48 WBC 8.7 (3.8-10.6) k/uL RBC 4.66 (4.30-5.90) m/uL Hgb 14.9 (13.0-17.5) gm/dL Hct 46.8 (39.0-53.0) % MCV 100.5 H (80.0-100.0) fL MCH 31.9 (25.0-35.0) pg MCHC 31.7 (31.0-37.0) g/dL RDW 13.1 (11.5-15.5) % Plt Count 234 (150-450) k/uL MPV 7.6 Neutrophils % 43 % Lymphocytes % 41 % Monocytes % 6 % Eosinophils % 7 % Basophils % 1 % Neutrophils # 3.7 (1.3-7.7) k/uL Lymphocytes # 3.6 (1.0-4.8) k/uL Monocytes # 0.5 (0-1.0) k/uL Eosinophils # 0.6 (0-0.7) k/uL Basophils # 0.1 (0-0.2) k/uL PT 10.0 (9.0-12.0) sec INR 0.9 (<1.2) APTT 25.7 (22.0-30.0) sec D-Dimer 0.73 H (<0.60) mg/L FEU Sodium 140 (137-145) mmol/L Potassium 4.3 (3.5-5.1) mmol/L Chloride 110 H (98-107) mmol/L Carbon Dioxide 24 (22-30) mmol/L Anion Gap 6 mmol/L BUN 3 L (9-20) mg/dL Creatinine 0.49 L (0.66-1.25) mg/dL Est GFR (CKD-EPI)AfAm >90 (>60 ml/min/1.73 sqM) Est GFR (CKD-EPI)NonAf >90 (>60 ml/min/1.73 sqM) Glucose 78 (74-99) mg/dL Plasma Lactic Acid Carlos (0.7-2.0) mmol/L Calcium 8.3 L (8.4-10.2) mg/dL Phosphorus 3.8 (2.5-4.5) mg/dL Magnesium 1.8 (1.6-2.3) mg/dL Total Bilirubin 0.8 (0.2-1.3) mg/dL AST 40 (17-59) U/L ALT 33 (4-49) U/L Alkaline Phosphatase 73 (38-126) U/L Troponin I (0.000-0.034) ng/mL NT-Pro-B Natriuret Pep pg/mL Total Protein 6.5 (6.3-8.2) g/dL Albumin 3.6 (3.5-5.0) g/dL 07/03/22 07/03/22 07/03/22 Range/Units 20:48 20:48 20:48 WBC (3.8-10.6) k/uL RBC (4.30-5.90) m/uL Hgb (13.0-17.5) gm/dL Hct (39.0-53.0) % MCV (80.0-100.0) fL MCH (25.0-35.0) pg MCHC (31.0-37.0) g/dL RDW (11.5-15.5) % Plt Count (150-450) k/uL MPV Neutrophils % % Lymphocytes % % Monocytes % % Eosinophils % % Basophils % % Neutrophils # (1.3-7.7) k/uL Lymphocytes # (1.0-4.8) k/uL Monocytes # (0-1.0) k/uL Eosinophils # (0-0.7) k/uL Basophils # (0-0.2) k/uL PT (9.0-12.0) sec INR (<1.2) APTT (22.0-30.0) sec D-Dimer (<0.60) mg/L FEU Sodium (137-145) mmol/L Potassium (3.5-5.1) mmol/L Chloride (98-107) mmol/L Carbon Dioxide (22-30) mmol/L Anion Gap mmol/L BUN (9-20) mg/dL Creatinine (0.66-1.25) mg/dL Est GFR (CKD-EPI)AfAm (>60 ml/min/1.73 sqM) Est GFR (CKD-EPI)NonAf (>60 ml/min/1.73 sqM) Glucose (74-99) mg/dL Plasma Lactic Acid Carlos 1.9 (0.7-2.0) mmol/L Calcium (8.4-10.2) mg/dL Phosphorus (2.5-4.5) mg/dL Magnesium (1.6-2.3) mg/dL Total Bilirubin (0.2-1.3) mg/dL AST (17-59) U/L ALT (4-49) U/L Alkaline Phosphatase (38-126) U/L Troponin I <0.012 (0.000-0.034) ng/mL NT-Pro-B Natriuret Pep 89 pg/mL Total Protein (6.3-8.2) g/dL Albumin (3.5-5.0) g/dL - Radiology Data Radiology results: report reviewed (CTA chest is negative for PE likely a right upper lobe pneumonia), image reviewed Critical Care Time Critical Care Time: Yes Total Critical Care Time: 31 Disposition Clinical Impression: Hypoxia, Dehydration, Syncope, Pneumonia, COPD exacerbation, Pulmonary mass Disposition: ADMITTED IP TO THIS HOSP Condition: Serious Is patient prescribed a controlled substance at d/c from ED?: No Referrals: None,Stated [REFERRING] - 1-2 days Time of Disposition: 22:00
[2022-07-03 21:09] LABS: Basophils # (A) 0.1 k/uL (0-0.2); Basophils % (A) 1 %; Eosinophils # (A) 0.6 k/uL (0-0.7); Eosinophils % (A) 7 %; HCT 46.8 % (39.0-53.0); HGB 14.9 gm/dL (13.0-17.5); Lymphocytes # (A) 3.6 k/uL (1.0-4.8); Lymphocytes % (A) 41 %; MCH 31.9 pg (25.0-35.0); MCHC 31.7 g/dL (31.0-37.0); MCV 100.5 fL (80.0-100.0); Mean Platelet Volume 7.6; Monocytes # (A) 0.5 k/uL (0-1.0); Monocytes % (A) 6 %; Neutrophils # (A) 3.7 k/uL (1.3-7.7); Neutrophils % (A) 43 %; Platelet Count 234 k/uL (150-450); RBC 4.66 m/uL (4.30-5.90); RDW 13.1 % (11.5-15.5); WBC 8.7 k/uL (3.8-10.6)
[2022-07-03 21:24] LABS: ALT 33 U/L (4-49); AST 40 U/L (17-59); African American GFR (CKD) >90 (>60 ml/min/1.73 sqM); Albumin 3.6 g/dL (3.5-5.0); Alkaline Phosphatase 73 U/L (38-126); Anion Gap 6 mmol/L; Blood Urea Nitrogen 3 mg/dL (9-20); Calcium 8.3 mg/dL (8.4-10.2); Carbon Dioxide 24 mmol/L (22-30); Chloride 110 mmol/L (98-107); Glucose 78 mg/dL (74-99); Magnesium 1.8 mg/dL (1.6-2.3); Non-African American GFR(CKD) >90 (>60 ml/min/1.73 sqM); Phosphorus 3.8 mg/dL (2.5-4.5); Potassium 4.3 mmol/L (3.5-5.1); Sodium 140 mmol/L (137-145); Total Bilirubin 0.8 mg/dL (0.2-1.3); Total Protein 6.5 g/dL (6.3-8.2)
[2022-07-03] MEDS ORDERED: IPRATROPIUM-ALBUTEROL 3 ML NEB INHALATION STA ×2 (21:40→22:21)
[2022-07-03] MEDS ORDERED: HYDROmorphone 1 MG/ML 1 ML SYRINGE IVP STA (21:40)
[2022-07-03 22:05] LABS: INR 0.9 (<1.2); Partial Thromboplastin Time 25.7 sec (22.0-30.0)
--- NOTE | 2022-07-03 22:18 | CT ---
EXAM: CT Angiography Chest With Intravenous Contrast CLINICAL HISTORY: ITS.REASON CT Reason: PE TECHNIQUE: Axial computed tomographic angiography images of the chest with intravenous contrast. CTDI is 5.4 mGy and DLP is 238.9 mGy-cm. This CT exam was performed using one or more of the following dose reduction techniques: automated exposure control, adjustment of the mA and/or kV according to patient size, and/or use of iterative reconstruction technique. MIP reconstructed images were created and reviewed. COMPARISON: No relevant prior studies available. FINDINGS: Pulmonary arteries: Unremarkable. No pulmonary embolism. Aorta: Nonaneurysmal aorta. Lungs: Airspace consolidation in the RIGHT upper lobe, concerning for RIGHT upper lobe pneumonia. There is superimposed bullous changes and bronchiectasis with architectural distortion and scarring. Correlate for [id number] infection. LEFT apical paraseptal emphysematous changes. Pleural space: Unremarkable. No pleural effusion or pneumothorax. Heart: Unremarkable. No cardiomegaly. No significant pericardial effusion. No evidence of RV dysfunction. Bones/joints: No acute fracture. No dislocation. Soft tissues: Unremarkable. Lymph nodes: Unremarkable. No enlarged lymph nodes. Liver: Hepatic steatosis. IMPRESSION: Airspace consolidation in the RIGHT upper lobe, concerning for RIGHT upper lobe pneumonia. There is superimposed bullous changes and bronchiectasis with architectural distortion and scarring. Correlate for [id number]-[id number] infection.
[2022-07-03] MEDS ORDERED: ALBUTEROL NEBULIZED 2.5 MG/3 ML INHALATION PRN (22:21)
[2022-07-03] MEDS ORDERED: PNEUMONIA PROTOCOL UTILIZED 1 EACH MISC PO PRN (22:21)
[2022-07-03] MEDS ORDERED: NALOXONE 0.4 MG/ML 1 ML VIAL IV PRN (22:21)
[2022-07-03] MEDS ORDERED: AZITHROMYCIN 500 MG in SODIUM CHLORIDE 0.9% 250 ML IVPB STA (22:21)
[2022-07-03] MEDS ORDERED: HYDROmorphone 1 MG/ML 1 ML SYRINGE IVP PRN (22:21)
[2022-07-03] MEDS: SODIUM CHLORIDE 0.9% 1,000 ML IV SCH (23:26)
[2022-07-04] MEDS ORDERED: IPRATROPIUM-ALBUTEROL 3 ML NEB INHALATION PRN (00:27)
[2022-07-04] MEDS: ACETAMINOPHEN TAB 325 MG TAB PO PRN ×2 (00:45→08:36)
[2022-07-04] MEDS: ALPRAZolam 1 MG TAB PO PRN ×4 (00:45→22:06)
--- NOTE | 2022-07-04 03:30 | P.CNPUL ---
History of Present Illness Consult date: 07/04/22 Requesting physician: Semaj Duron Reason for consult: dyspnea, pneumonia Chief complaint: Shortness of breath and syncope History of present illness: I am seeing this patient in new consultation today 07/04/2022 for syncope and extensive cavitating right-sided pneumonia. Patient is a 61-year-old male with past medical history significant for right upper lobe pneumonia, COPD, recent COVID-19 infection, current smoker, polysubstance abuse with marijuana and cocaine, alcoholism. Patient had a recent hospital admission in January 2022 for extensive right upper lobe pneumonia with necrotizing changes and cavitation. Sputum and blood cultures did not identify any causative organism at that time. Patient ended up declining treatment, and leaving on hospice. He did end up changing his mind about hospice, and has pursued intervention on an outpatient basis. He has established himself with a primary care provider Dr. Gunter and a local stranner Trell Brown. He reportedly takes combination of Symbicort inhaler and DuoNeb's on an outpatient basis. Patient has been experiencing shortness of breath since his discharge in January, however, last night the patient experienced severe shortness of breath after climbing a flight of stairs. He then had multiple syncopal episodes, and EMS brought him to the emergency room. He denies any symptoms of fever, chills, change in his chronic cough, sputum, hemoptysis. He also denies any heart palpitations, chest pain, or seizure history. He denies hitting his head. Patient is currently lying in bed, on room air, in no acute distress. A chest CTA on arrival did not show any obvious pulmonary embolism. It did show redemonstration of the patient's extensive right upper lobe airspace consolidation with cavitation, superimposed bullous changes, and bronchiectasis. Currently on a combination of azithromycin and Rocephin. Has been afebrile. CBC on arrival was unremarkable. BMP shows a sodium 140, potassium 4.3, chloride 110, serum CO2 24, BUN 3, creatinine 0.49, glucose 78. Troponins negative 2. NT proBNP was low at 89. Vital signs are stable at this time. Review of Systems REVIEW OF SYSTEMS: CONSTITUTIONAL: Denies any recent significant weight loss or weight gain. EYES: Denies change in vision. EARS, NOSE, MOUTH, THROAT: Denies headaches, denies sore throat. CARDIOVASCULAR: Denies chest pain, palpitations or syncopal episodes. RESPIRATORY: See HPI GASTROINTESTINAL: Denies change in appetite, abdominal pain, nausea and vomiting, or diarrhea GENITOURINARY: Denies hematuria, denies infections. MUSKULOSKELETAL: Denies pain, denies swelling. INTEGUMENTARY: Denies rash, denies eczema. NEUROLOGICAL: Denies recent memory loss, no recent seizure activity. PSYCHIATRIC: Denies anxiety, denies depression. HEMATOLOGIC/LYMPHATIC: Denies anemia, denies enlarged lymph node Past Medical History Past Medical History: No Reported History, COPD Additional Past Medical History / Comment(s): Lung CA History of Any Multi-Drug Resistant Organisms: None Reported Past Surgical History: Appendectomy Additional Past Surgical History / Comment(s): knee surgery x 2, shoulder surgery Past Anesthesia/Blood Transfusion Reactions: No Reported Reaction Past Psychological History: No Psychological Hx Reported Smoking Status: Current every day smoker Past Alcohol Use History: Daily Past Drug Use History: Marijuana Medications and Allergies Home Medications Medication Instructions Recorded Confirmed Type ALPRAZolam [Xanax] 1 mg PO TID 07/03/22 07/03/22 History Albuterol Sulfate [Albuterol 2 puff PO RT-QID PRN 07/03/22 07/03/22 History Sulfate Hfa] Budesonide/Formoterol Fumarate 2 puff INHALATION RT-DAILY 07/03/22 07/03/22 History [Symbicort 160-4.5 Mcg Inhaler] Ibuprofen [Motrin] 400 mg PO Q8HR PRN 07/03/22 07/03/22 History Ipratropium-Albuterol Nebulize 3 ml INHALATION RT-BID 07/03/22 07/03/22 History [Duoneb 0.5 mg-3 mg/3 ml Soln] Omeprazole [PriLOSEC] 20 mg PO BID PRN 07/03/22 07/03/22 History Ondansetron [Zofran] 4 mg PO Q8HR PRN 07/03/22 07/03/22 History oxyCODONE-APAP 10-325MG [Percocet 1 tab PO QID 07/03/22 07/03/22 History 10-325 mg] predniSONE 10 mg PO PC-BRKFST 07/03/22 07/03/22 History Allergies Allergy/AdvReac Type Severity Reaction Status Date / Time No Known Allergies Allergy Verified 07/03/22 21:25 Physical Exam Vitals: Vital Signs Temp Pulse Pulse Resp BP BP Pulse Ox 07/03/22 23:52 79 18 113/74 95 07/03/22 22:30 80 16 126/78 96 07/03/22 22:24 77 07/03/22 22:15 70 07/03/22 22:14 70 07/03/22 22:04 67 07/03/22 22:00 68 16 108/75 98 07/03/22 21:30 66 16 110/82 97 07/03/22 21:00 72 15 07/03/22 20:59 69 15 96 07/03/22 20:41 97.8 F 71 20 138/91 98 Intake and Output 07/03/22 07/03/22 07/04/22 14:59 22:59 06:59 Other: # Voids 1 Weight 59.421 kg 59.421 kg GENERAL EXAM: Alert and frail, 62-year-old white male, comfortable in no appar ent distress. HEAD: Normocephalic and atraumatic EYES: Normal reaction of pupils, equal size. NOSE: Clear with pink turbinates. THROAT: No erythema or exudates. NECK: No masses, no JVD. CHEST: No chest wall deformity. LUNGS: Rhonchi scattered crackles noted in the right upper lobe. On room air. No conversational dyspnea or accessory muscle use.. CVS: S1 and S2 normal with no audible murmur, regular rhythm. No extra heart sounds ABDOMEN: No hepatosplenomegaly, active bowel sounds, no guarding or rigidity. SPINE: No scoliosis or deformity SKIN: No rashes CENTRAL NERVOUS SYSTEM: No focal deficits, tone is normal in all 4 extremities. EXTREMITIES: There is no peripheral edema, clubbing, or cyanosis. Peripheral pulses are intact. Results - Laboratory Findings CBC and BMP: 07/04/22 03:12 07/04/22 03:12 PT/INR, D-dimer PT 10.0 sec (9.0-12.0) 07/03/22 20:48 INR 0.9 (<1.2) 07/03/22 20:48 D-Dimer 0.73 mg/L FEU (<0.60) H 07/03/22 20:48 Abnormal lab findings: Abnormal Labs 07/03/22 07/03/22 07/03/22 20:48 20:48 20:48 MCV 100.5 H D-Dimer 0.73 H Chloride 110 H BUN 3 L Creatinine 0.49 L Calcium 8.3 L - Diagnostic Findings CT scan - chest: image reviewed Assessment and Plan Assessment: Extensive right upper lobe pneumonia with necrotizing changes and cavitation originally found back in January,. Malignancy cannot be completely excluded. Patient declined intervention at that time, and went home with hospice care. He has since changed his mind about his decision for treatment. Syncope, currently under investigation COPD History of COVID-19 positive in January, Multiple substance abuse including marijuana/cocaine and possibly alcoholism Chronic smoker Plan: Patient's medications, labs, chest CTA reviewed Continue Rocephin and azithromycin Continue bronchodilators, Symbicort On room air patient may require bronchoscopy Blood and sputum cultures pending Cardiology has been consulted Obtain echocardiogram We will continue to follow I have personally seen and examined the patient, performed the documentation and the assessment and plan as written. Number of minutes spent on the visit: 20. I'm seeing this patient joint evaluation along with the nurse practitioner. The patient was hospitalized for 4 and episodes of presyncope. He is known to me from previous hospitalization. He has COPD and extensive consolidation and pneumonia of the right lung that occurred back in January 2022. At that time, the cultures were negative and the patient was positive for Covid 19. Repeat computed tomography scan of the chest was done and showed airspace consolidation of the right upper lobe along with superimposed was changes and chronic bronchiectasis with architectural distortion and scarring. Consider possibility of a chronic infection involving the right lung. There is evidence of paraseptal emphysema also. No evidence of any pulmonary embolism. In comparison, the findings are improved comparing it to the earlier CAT scan from January 2022. Note that back then, the patient was hospitalized for hypoxic respiratory failure, he was requiring high flow of oxygen. He had not received any medical evaluation and he has ignored his L4 many years. I suspected that the pneumonia itself was chronic. Possibility of gram-negative and anaerobic infection was considered. In enervates, the patient back then but himself into hospice and he got discharged. He says then changed his mind and is currently back. My recommendations a bronchoscopy and lavage of the right upper lobe for microbial diagnosis and possibly some biopsies. I'm going to offer this patient . He is going to give it a thoughts. I do however think that the findings in the right lung that are essentially improved compared to 5 months ago and the amount of consolidation is much less. There is some cavitation forming in the right upper lobe. He is currently on room air oxygen. Is having some limited exertional dyspnea and cough and congestion. Is currently on antibiotics. I'm suggesting bronchoscopy for this patient. This will be possibly down within the next 24-48 hours if the patient consents. Time with Patient: Greater than 30
[2022-07-04 03:33] LABS: ALT 28 U/L (4-49); AST 46 U/L (17-59); African American GFR (CKD) >90 (>60 ml/min/1.73 sqM); Albumin 2.9 g/dL (3.5-5.0); Alkaline Phosphatase 62 U/L (38-126); Anion Gap 8 mmol/L; Blood Urea Nitrogen 4 mg/dL (9-20); Calcium 7.6 mg/dL (8.4-10.2); Carbon Dioxide 22 mmol/L (22-30); Chloride 112 mmol/L (98-107); Glucose 67 mg/dL (74-99); Magnesium 1.8 mg/dL (1.6-2.3); Non-African American GFR(CKD) >90 (>60 ml/min/1.73 sqM); Phosphorus 3.2 mg/dL (2.5-4.5); Potassium 3.7 mmol/L (3.5-5.1); Sodium 142 mmol/L (137-145); Total Bilirubin 0.3 mg/dL (0.2-1.3); Total Protein 5.5 g/dL (6.3-8.2)
[2022-07-04 03:42] LABS: Basophils # (A) 0.1 k/uL (0-0.2); Basophils % (A) 1 %; Eosinophils # (A) 0.4 k/uL (0-0.7); Eosinophils % (A) 5 %; HCT 39.7 % (39.0-53.0); HGB 12.6 gm/dL (13.0-17.5); Lymphocytes # (A) 2.3 k/uL (1.0-4.8); Lymphocytes % (A) 31 %; MCH 31.1 pg (25.0-35.0); MCHC 31.8 g/dL (31.0-37.0); MCV 97.9 fL (80.0-100.0); Mean Platelet Volume 7.8; Monocytes # (A) 0.5 k/uL (0-1.0); Monocytes % (A) 6 %; Neutrophils # (A) 4.2 k/uL (1.3-7.7); Neutrophils % (A) 55 %; Platelet Count 194 k/uL (150-450); RBC 4.06 m/uL (4.30-5.90); RDW 13.5 % (11.5-15.5); WBC 7.5 k/uL (3.8-10.6)
[2022-07-04] MEDS ORDERED: DEXTROSE 50% SYRINGE 50 ML IVP PRN (06:12)
[2022-07-04 06:25] LABS: Glucose,Whole Blood 82 mg/dL (70-110)
--- NOTE | 2022-07-04 07:11 | XR ---
EXAMINATION TYPE: XR chest 2V DATE OF EXAM: 07/04/2022 6:39 AM COMPARISON: Chest radiographs from 02/12/2022, CT chest 07/03/2022. TECHNIQUE: XR chest 2V Frontal and lateral views of the chest. CLINICAL INDICATION:Male, 62 years old with history of pneumonia; FINDINGS: Lungs/Pleura: No pleural effusion. Background COPD changes. Right upper lobe consolidation redemonstr ated with foci of gas identified in volume loss. Additional opacities identified within the right mid lung. Pulmonary vascularity: Unremarkable. Heart/mediastinum: Cardiomediastinal silhouette is unremarkable. Musculoskeletal: No acute osseous pathology. IMPRESSION: Background COPD changes with right upper and mid lung consolidation with associated volume loss of fo ci of gas concerning for pneumonia. Continued follow-up is recommended.
--- NOTE | 2022-07-04 07:57 | P.CRDCN ---
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 He has a past medical history of Covid 19 in January as well as hospitalization in January which time he was treated for a right upper lobe pneumonia with next dressing changes and left the hospital under hospice subsequently sought treatment. We have been asked to evaluate the patient for syncopal episodes. Patient gives history that he was walking up a flight of stairs At the top and denies having any dizziness but completely pass out. His niece was present and apparently witnessed at least 2-3 episodes of this. EMS was called and patient was brought into the hospital. He has been hemodynamically stable. Patient denies having any chest pain, no previous episodes of passing out. He states he is usually short of b reath with minimal walking. Patient also has a past medical history of smoking and continues to smoke 5-6 cigarettes per day previously greater than a pack per day since he was 17 years of age. He also uses marijuana, cocaine and alcohol. He states he drinks a couple of beers most days and his last intake was yesterday. Patient states he has not been out of bed since he arrived. Patient was started on IV bolus of 1 L, IV antibiotics and nebulizer treatments. EKG sinus rhythm CTA of the chest revealed right upper lobe pneumonia, no PE, bronchiectasis. Chest x-ray 07/04: COPD, right upper lobe and mid lung consolidation, pneumonia. WBC 8.7, hemoglobin 14.9, platelet count 234. D-dimer 0.73. Troponin negative 3. Home cardiac medications: None Review Of Systems: At the time of my evaluation: Constitutional: No fever, no chills. No weakness, fatigue or lethargy. EENT: No headache. No dizziness. Lungs: No shortness of breath, cough, no sputum production. No wheezing. Chronic shortness of breath with activity. Cardiovascular: No chest pain, no lower extremity edema. No palpitations. No paroxysmal nocturnal dyspnea. No orthopnea. No lightheadedness or dizziness. No syncopal episodes. Abdominal: No abdominal pain. No nausea, vomiting. No diarrhea. No constipation. No bloody or tarry stools. Genitourinary: No dysuria.. No urinary retention. Musculoskeletal: No myalgias. No muscle weakness, no frequent falls. No back pain. No neck pain. Integumentary: No wounds. No rash. No unusual bruising. Neurologic: No aphasia. No facial droop. No change in mentation. No head injury. No headache. Physical examination: Gen: This is a thin 62-year-old male. He is resting bed and appears to be comfortable. VS: reviewed HEENT: Head is atraumatic, normocephalic. Pupils equal, round. Sclerae is anicteric. NECK: Supple. No JVD. LUNGS: Bilateral scattered rhonchi and wheezing No intercostal retractions. HEART: Regular rate and rhythm. No murmur. ABDOMEN: Soft No tenderness. EXTREMITIES: No pedal edema. No calf tenderness. NEUROLOGICAL: Patient is awake, alert and oriented x3. Assessment: Syncopal episodes COPD Pneumonia Alcohol abuse Polysubstance abuse Tobacco use and dependence Plan: Orthostatic vital signs were negative Echocardiogram reveals EF of 50-55%, mildly increased LV wall thickness, mild to moderate dilated RV, trace mitral regurgitation, trace to mild TR Advise alcohol and drugs cessation Smoking cessation Discontinue telemetry Cardiology we'll sign off and follow on an as needed basis. Please reconsult for new concerns. Thank you kindly for this consultation. Nurse practitioner note has been reviewed, I agree with documented findings and plan of care. Patient was seen and examined. Past Medical History Past Medical History: No Reported History, COPD Additional Past Medical History / Comment(s): Lung CA History of Any Multi-Drug Resistant Organisms: None Reported Past Surgical History: Appendectomy Additional Past Surgical History / Comment(s): knee surgery x 2, shoulder surgery Past Anesthesia/Blood Transfusion Reactions: No Reported Reaction Past Psychological History: No Psychological Hx Reported Smoking Status: Current every day smoker Past Alcohol Use History: Daily Past Drug Use History: Marijuana Medications and Allergies Home Medications Medication Instructions Recorded Confirmed Type ALPRAZolam [Xanax] 1 mg PO TID 07/03/22 07/03/22 History Albuterol Sulfate [Albuterol 2 puff PO RT-QID PRN 07/03/22 07/03/22 History Sulfate Hfa] Budesonide/Formoterol Fumarate 2 puff INHALATION RT-DAILY 07/03/22 07/03/22 History [Symbicort 160-4.5 Mcg Inhaler] Ibuprofen [Motrin] 400 mg PO Q8HR PRN 07/03/22 07/03/22 History Ipratropium-Albuterol Nebulize 3 ml INHALATION RT-BID 07/03/22 07/03/22 History [Duoneb 0.5 mg-3 mg/3 ml Soln] Omeprazole [PriLOSEC] 20 mg PO BID PRN 07/03/22 07/03/22 History Ondansetron [Zofran] 4 mg PO Q8HR PRN 07/03/22 07/03/22 History oxyCODONE-APAP 10-325MG [Percocet 1 tab PO QID 07/03/22 07/03/22 History 10-325 mg] predniSONE 10 mg PO PC-BRKFST 07/03/22 07/03/22 History Allergies Allergy/AdvReac Type Severity Reaction Status Date / Time No Known Allergies Allergy Verified 07/03/22 21:25 Physical Exam Vitals: Vital Signs Temp Pulse Pulse Resp BP BP Pulse Ox 07/04/22 04:47 72 18 102/58 96 07/03/22 23:52 97.7 F 79 18 113/74 95 07/03/22 22:30 80 16 126/78 96 07/03/22 22:24 77 07/03/22 22:15 70 07/03/22 22:14 70 07/03/22 22:04 67 07/03/22 22:00 68 16 108/75 98 07/03/22 21:30 66 16 110/82 97 07/03/22 21:00 72 15 07/03/22 20:59 69 15 96 07/03/22 20:41 97.8 F 71 20 138/91 98 Intake and Output 07/03/22 07/04/22 07/04/22 22:59 06:59 14:59 Other: Voiding Method Toilet # Voids 1 Weight 59.421 kg 59.421 kg Results 07/04/22 03:12 07/04/22 03:12 Cardiac Enzymes 07/03/22 07/03/22 07/04/22 Range/Units 20:48 20:48 00:04 AST 40 (17-59) U/L Troponin I <0.012 0.016 (0.000-0.034) ng/mL 07/04/22 07/04/22 Range/Units 03:12 03:12 AST 46 (17-59) U/L Troponin I 0.017 (0.000-0.034) ng/mL Coagulation 07/03/22 Range/Units 20:48 PT 10.0 (9.0-12.0) sec APTT 25.7 (22.0-30.0) sec CBC 07/03/22 07/04/22 Range/Units 20:48 03:12 WBC 8.7 7.5 (3.8-10.6) k/uL RBC 4.66 4.06 L (4.30-5.90) m/uL Hgb 14.9 12.6 L (13.0-17.5) gm/dL Hct 46.8 39.7 (39.0-53.0) % Plt Count 234 194 (150-450) k/uL Comprehensive Metabolic Panel 07/03/22 07/04/22 Range/Units 20:48 03:12 Sodium 140 142 (137-145) mmol/L Potassium 4.3 3.7 (3.5-5.1) mmol/L Chloride 110 H 112 H (98-107) mmol/L Carbon Dioxide 24 22 (22-30) mmol/L BUN 3 L 4 L (9-20) mg/dL Creatinine 0.49 L 0.43 L (0.66-1.25) mg/dL Glucose 78 67 L (74-99) mg/dL Calcium 8.3 L 7.6 L (8.4-10.2) mg/dL AST 40 46 (17-59) U/L ALT 33 28 (4-49) U/L Alkaline Phosphatase 73 62 (38-126) U/L Total Protein 6.5 5.5 L (6.3-8.2) g/dL Albumin 3.6 2.9 L (3.5-5.0) g/dL Current Medications Generic Name Dose Route Start Last Admin Trade Name Freq PRN Reason Stop Dose Admin Acetaminophen 650 mg 07/04/22 00:09 07/04/22 00:45 Acetaminophen Tab 325 Mg Tab PO 650 mg Q6HR PRN Administration Mild Pain or Fever > 100.5 Albuterol/Ipratropium 3 ml 07/04/22 08:00 Ipratropium-Albuterol 3 Ml Neb INHALATION RT-QID SILVINO Albuterol/Ipratropium 3 ml 07/04/22 00:27 Ipratropium-Albuterol 3 Ml Neb INHALATION RT-Q2H PRN Shortness Of Breath Or Wheezing Alprazolam 1 mg 07/04/22 00:05 07/04/22 00:45 Alprazolam 1 Mg Tab PO 1 mg TID PRN Administration Anxiety Azithromycin 500 mg 07/04/22 09:00 Azithromycin 500 Mg Tab PO 07/05/22 09:01 DAILY [facility] Protocol Budesonide/Formoterol Fumarate 2 puff 07/04/22 08:00 Symbicort 160-4.5 Mcg Inhaler INHALATION RT-BID [facility] Dextrose/Water 50 ml 07/04/22 06:12 Dextrose 50% Syringe 50 Ml IVP ONCE PRN Hypoglycemia Hydromorphone HCl 1 mg 07/03/22 22:21 Hydromorphone 1 Mg/Ml 1 Ml Syringe IVP Q3HR PRN Severe Pain (Scale 7 to 10) Sodium Chloride 1,000 mls @ 100 mls/hr 07/03/22 22:30 07/03/22 23:26 Saline 0.9% IV 100 mls/hr .Q10H SILVINO Administration Ceftriaxone Sodium 2 gm/ 50 mls @ 100 mls/hr 07/04/22 22:00 Sodium Chloride IVPB 07/07/22 22:29 Q24H [facility] Protocol Miscellaneous Information 1 each 07/03/22 22:21 Pneumonia Protocol Utilized 1 Each Misc PO ONCE PRN Per Protocol Naloxone HCl 0.2 mg 07/03/22 22:21 Naloxone 0.4 Mg/Ml 1 Ml Vial IV Q2M PRN Opioid Reversal Intake and Output 07/03/22 07/04/22 07/04/22 22:59 06:59 14:59 Other: Voiding Method Toilet # Voids 1 Weight 59.421 kg 59.421 kg 07/04/22 03:12 07/04/22 03:12
[2022-07-04] MEDS: SYMBICORT 160-4.5 MCG INHALER INHALATION SCH ×2 (08:12→21:34)
[2022-07-04] MEDS: IPRATROPIUM-ALBUTEROL 3 ML NEB INHALATION SCH ×4 (08:13→21:35)
[2022-07-04] MEDS: AZITHROMYCIN 500 MG TAB PO SCH (08:27)
[2022-07-04] MEDS: oxyCODONE-APAP 10-325MG 1 EACH TAB PO PRN ×3 (11:32→22:05)
[2022-07-04] MEDS: methylPREDNISolone SOD SUCCI 40 MG/ML 1 ML VIAL IV SCH ×2 (11:37→16:58)
[2022-07-04 11:51] LABS: Glucose,Whole Blood 104 mg/dL (70-110)
[2022-07-04] MEDS: SODIUM CHLORIDE 0.9% 1,000 ML IV SCH ×2 (12:36→16:59)
[2022-07-04] MEDS ORDERED: oxyCODONE-APAP 10-325MG 1 EACH TAB PO SCH (13:00)
--- NOTE | 2022-07-04 14:39 | CA ---
Transthoracic Echo Report Name: Villa Khan Age: 62 Gender: M : 1960 Exam Date: 07/04/2022 07:54 Exam Location: [facility] Ht (in): 69 Wt (lb): 131 Ordering Physician: Daniel Sullivan Attending/Referring Phys: Machine Wedger Femi Marcos Procedure CPT: Indications: evaluate LV function Cardiac Hx: Technical Quality: Fair Contrast 1: Total Dose (mL): Contrast 2: Total Dose (mL): MEASUREMENTS (Male / Female) Normal Values 2D ECHO LV Diastolic Diameter PLAX 3.4 cm 4.2 - 5.9 / 3.9 - 5.3 cm LV Systolic Diameter PLAX 2.3 cm LV Fractional Shortening PLAX 32.7 % IVS Diastolic Thickness 1.2 cm 0.6 - 1.0 / 0.6 - 0.9 cm IVS Systolic Thickness 1.7 cm LVPW Diastolic Thickness 1.4 cm 0.6 - 1.0 / 0.6 - 0.9 cm LVPW Systolic Thickness 1.7 cm LV Relative Wall Thickness 0.8 LVOT Diameter 1.9 cm LV Diastolic Volume MOD BP 93.9 cm??? 67 - 155 / 56 - 104 cm??? LV Systolic Volume MOD BP 33.8 cm??? 22 - 58 / 19 - 49 cm??? LV Ejection Fraction MOD BP 64.0 % >= 55 % LV Stroke Volume MOD BP 60.0 cm??? LV Diastolic Volume MOD 4C 77.4 cm??? LV Systolic Volume MOD 4C 26.1 cm??? LV Ejection Fraction MOD 4C 66.3 % LV Stroke Volume MOD 4C 51.3 cm??? LV Diastolic Length 4C 7.6 cm LV Systolic Length 4C 6.4 cm LV Diastolic Volume MOD 2C 108.4 cm??? LV Systolic Volume MOD 2C 43.4 cm??? LV Ejection Fraction MOD 2C 60.0 % LV Stroke Volume MOD 2C 65.0 cm??? LV Diastolic Length 2C 8.0 cm LV Systolic Length 2C 6.5 cm M-MODE Aortic Root Diameter MM 3.0 cm LA Systolic Diameter MM 3.3 cm LA Ao Ratio MM 1.1 MV E Point Septal Separation 0.7 cm DOPPLER AV Peak Velocity 122.4 cm/s AV Peak Gradient 6.0 mmHg MV Deceleration [place] 550.8 cm/s??? Mitral E Point Velocity 84.5 cm/s Mitral A Point Velocity 65.1 cm/s Mitral E to A Ratio 1.3 MV Deceleration Time 153.4 ms MV E' Velocity 11.5 cm/s Mitral E to MV E' Ratio 7.4 TR Peak Velocity 80.9 cm/s TR Peak Gradient 2.6 mmHg PV Peak Velocity 100.8 cm/s PV Peak Gradient 4.1 mmHg FINDINGS Left Ventricle Left ventricular ejection fraction is estimated at 50-55%. Mild concentric left ventricular hypertrophy. Normal basal systolic function. Right Ventricle Mild to moderately dilated right ventricle. Right Atrium Normal right atrial size. Left Atrium Normal left atrial size. Mitral Valve Structurally normal mitral valve. No mitral stenosis. Trace mitral regurgitation. Aortic Valve Trileaflet aortic valve. No aortic regurgitation. No aortic stenosis. Tricuspid Valve Trace to mild tricuspid regurgitation. Pulmonic Valve Pulmonic valve not well visualized. Pericardium Normal pericardium. No pericardial effusion. Aorta Normal size aortic root and proximal ascending aorta. CONCLUSIONS Left ventricular ejection fraction 50-55% Mildly increased left ventricular wall thickness Mild to moderately dilated right ventricle Trace mitral regurgitation Trace to mild tricuspid regurgitation Previewed by: Dr. Max Sinha DO (Electronically Signed) Final Date: 04 Jul 2022 14:38
[2022-07-04 16:54] LABS: Glucose,Whole Blood 131 mg/dL (70-110)
[2022-07-04] MEDS ORDERED: ONDANSETRON 4 MG TAB PO PRN (17:25)
[2022-07-04] MEDS ORDERED: IBUPROFEN 400 MG TAB PO PRN (17:25)
[2022-07-04] MEDS ORDERED: PANTOPRAZOLE 40 MG TABLET PO PRN (17:25)
[2022-07-04] MEDS ORDERED: ALBUTEROL SULFATE PO PRN (17:25)
[2022-07-04 19:47] LABS: Glucose,Whole Blood 187 mg/dL (70-110)
[2022-07-04] MEDS ORDERED: IPRATROPIUM-ALBUTEROL 3 ML NEB INHALATION SCH (20:00)
[2022-07-04 23:47] LABS: Glucose,Whole Blood 143 mg/dL (70-110)
[2022-07-05 00:05] VITALS: RESP 18
[2022-07-05] MEDS: methylPREDNISolone SOD SUCCI 40 MG/ML 1 ML VIAL IV SCH ×3 (00:27→12:05)
[2022-07-05 05:57] LABS: Glucose,Whole Blood 116 mg/dL (70-110)
[2022-07-05] MEDS: oxyCODONE-APAP 10-325MG 1 EACH TAB PO PRN ×2 (06:06→12:06)
[2022-07-05] MEDS: SODIUM CHLORIDE 0.9% 1,000 ML IV SCH (06:07)
[2022-07-05] MEDS ORDERED: SYMBICORT 160-4.5 MCG INHALER INHALATION SCH (08:00)
[2022-07-05] MEDS: IPRATROPIUM-ALBUTEROL 3 ML NEB INHALATION SCH ×2 (08:20→11:27)
[2022-07-05] MEDS: SYMBICORT 160-4.5 MCG INHALER INHALATION SCH (08:20)
[2022-07-05] MEDS: ALPRAZolam 1 MG TAB PO PRN (09:20)
[2022-07-05] MEDS: AZITHROMYCIN 500 MG TAB PO SCH (09:20)
[2022-07-05 10:26] VITALS: BP 128/79; TEMP 98.2
[2022-07-05 11:39] VITALS: PULSE 68
[2022-07-05 12:07] LABS: Glucose,Whole Blood 100 mg/dL (70-110)
--- NOTE | 2022-07-05 12:22 | P.PN ---
Subjective Progress Note Date: 07/05/22 I am seeing this patient in new consultation today 07/04/2022 for syncope and extensive cavitating right-sided pneumonia. Patient is a 61-year-old male with past medical history significant for right upper lobe pneumonia, COPD, recent COVID-19 infection, current smoker, polysubstance abuse with marijuana and cocaine, alcoholism. Patient had a recent hospital admission in January 2022 for extensive right upper lobe pneumonia with necrotizing changes and cavitation. Sputum and blood cultures did not identify any causative organism at that time. Patient ended up declining treatment, and leaving on hospice. He did end up changing his mind about hospice, and has pursued intervention on an outpatient basis. He has established himself with a primary care provider Dr. Gunter and a local market development specialist Trell Brown. He reportedly takes combination of Symbicort inhaler and DuoNeb's on an outpatient basis. Patient has been experiencing shortness of breath since his discharge in January, however, last night the patient experienced severe shortness of breath after climbing a flight of stairs. He then had multiple syncopal episodes, and EMS brought him to the emergency room. He denies any symptoms of fever, chills, change in his chronic cough, sputum, hemoptysis. He also denies any heart palpitations, chest pain, or seizure history. He denies hitting his head. Patient is currently lying in bed, on room air, in no acute distress. A chest CTA on arrival did not show any obvious pulmonary embolism. It did show redemonstration of the patient's extensive right upper lobe airspace consolidation with cavitation, superimposed bullous changes, and bronchiectasis. Currently on a combination of azithromycin and Rocephin. Has been afebrile. CBC on arrival was unremarkable. BMP shows a sodium 140, potassium 4.3, chloride 110, serum CO2 24, BUN 3, creatinine 0.49, glucose 78. Troponins negative 2. NT proBNP was low at 89. Vital signs are stable at this time. On today's evaluation of 07/05/2022, the patient is on room air oxygen. Denies having any specific complaints. As mentioned earlier, the patient and extensive right lung consolidation/pneumonia and this was present back in 2021 specifically in January 2022. The patient did have a necrotizing pneumonia and was suspected that he had a gram-negative infection. However, no further intervention was done and the patient was released home and the patient has been followed by Dr. Brown. I made recommendations for bronchoscopy and bronchial lavage of the right lung to rule out any atypical infections. The patient declined the procedure. He wants to discuss it with his market development specialist. I think is reasonable specialties clinically stable and the CAT scan of the chest was showing interval improvement in the right lung consolidative findings. There is some cavitation also embolus changes in the right upper lobe. Nevertheless, the patient is asymptomatic at this point it is afebrile. No significant leukocyto sis of the pro calcitonin level has been 0.07. Meanwhile, patient had a blood culture that shows staph epidermidis which is essentially contaminant. For now, he remains on bronchodilators. He remains on Rocephin and and is also on IV Solu-Medrol. Objective - Vital Signs Vital signs: Vital Signs Temp 98.2 F 07/05/22 08:10 Pulse 72 07/05/22 08:38 Resp 18 07/05/22 08:10 BP 128/79 07/05/22 08:10 Pulse Ox 100 07/05/22 08:20 FiO2 Intake & Output 07/04/22 07/05/22 07/05/22 18:59 06:59 18:59 Intake Total 1316 598 Balance 1316 598 Intake: Oral 1316 598 Other: Voiding Method Toilet Toilet Toilet # Voids 1 1 - Exam GENERAL EXAM: Alert and frail, 62-year-old white male, comfortable in no apparent distress. HEAD: Normocephalic and atraumatic EYES: Normal reaction of pupils, equal size. NOSE: Clear with pink turbinates. THROAT: No erythema or exudates. NECK: No masses, no JVD. CHEST: No chest wall deformity. LUNGS: Rhonchi scattered crackles noted in the right upper lobe. On room air. No conversational dyspnea or accessory muscle use.. CVS: S1 and S2 normal with no audible murmur, regular rhythm. No extra heart sounds ABDOMEN: No hepatosplenomegaly, active bowel sounds, no guarding or rigidity. SPINE: No scoliosis or deformity SKIN: No rashes CENTRAL NERVOUS SYSTEM: No focal deficits, tone is normal in all 4 extremities. EXTREMITIES: There is no peripheral edema, clubbing, or cyanosis. Peripheral pulses are intact. - Labs CBC & Chem 7: 07/04/22 03:12 07/04/22 03:12 Labs: Abnormal Lab Results - Last 24 Hours (Table) 07/04/22 07/04/22 07/04/22 Range/Units 16:51 19:45 23:46 POC Glucose (mg/dL) 131 H 187 H 143 H (70-110) mg/dL 07/05/22 Range/Units 05:55 POC Glucose (mg/dL) 116 H (70-110) mg/dL Microbiology - Last 24 Hours (Table) 07/03/22 22:40 Blood Culture Gram Stain - Preliminary Blood Blood Culture - Preliminary Staphylococcus epidermidis 07/03/22 22:25 Blood Culture - Preliminary Blood 07/03/22 22:25 Blood Culture - Preliminary Blood No Growth after 24 hours Assessment and Plan Assessment: Extensive right upper lobe pneumonia with necrotizing changes and cavitation originally found back in January,. Malignancy cannot be completely excluded. Patient declined intervention at that time . During this current admission, the patient is clinically stable. Oxygenation is stable. A repeat CAT scan of the chest was done and this was compared to the earlier CAT scan from January 2022. There is a chronic bronchiectatic changes and architectural distortion and scarring. However, consulted changes improved compared to January 2022. Syncope, currently under investigation COPD History of COVID-19 positive in January, Multiple substance abuse including marijuana/cocaine and possibly alcoholism Chronic smoker Plan: Patient is clinically stable The patient has a low pro-calcitonin level No significant leukocytosis or fever Right lung changes improved compared to 2021 Patient declined bronchoscopy and lavage Patient will follow-up with his primary care physician and his market development specialist, Dr. Brown He wants to leave the hospital. I think is reasonable to discharge this patient with outpatient follow-up. He is stable for discharge from the pulmonary standpoint.
--- NOTE | 2022-07-06 06:19 | HP ---
HISTORY AND PHYSICAL CHIEF COMPLAINT: Syncope. HISTORY OF PRESENT ILLNESS: This 62-year-old man apparently passed out at home. Details are sketchy and he cannot give a history. He did not injure himself. He did not lose sphincter control. He had no chest pain, focal neurologic signs or symptoms, diarrhea, melena, shortness of breath, chest pain, etc. Past medical history, family history, and personal and social histories are otherwise unremarkable or noncontributory. 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 PHYSICAL EXAMINATION: VITAL SIGNS: Blood pressure is 129/64 with a pulse of 76 and respirations of 34. GENERAL: Appeared to be asthenic and slightly dehydrated. HEAD, EARS, EYES, NOSE, MOUTH AND THROAT: Normal. CHEST: Demonstrated breath sounds bilaterally with somewhat decreased breath sounds high in the right anterior and posterior chest. CARDIAC: Normal. ABDOMEN: Soft and flat. EXTREMITIES: Normal. NEUROLOGICAL: Intact. NECK: Carotids are normal. IMPRESSION: 1. Syncope, etiology unknown. 2. Probable right upper lobe neoplasm. 3. Chronic obstructive pulmonary disease. PLAN: 1. Bed rest. 2. IV fluids. 3. Telemetry. 4. Pulmonology consult to assess right upper lobe pathology. MMODL / IJN: [id number] /
--- NOTE | 2022-07-06 09:04 | PN ---
PROGRESS NOTE DATE OF SERVICE: 07/04/2022 CHIEF COMPLAINT: Syncope. HISTORY OF PRESENT ILLNESS: Davi is doing well. He denies any neurologic problems, headache, chest pain, and shortness of breath, etc. PHYSICAL EXAMINATION: CHEST: Clear. CARDIAC: Normal. ABDOMEN: Soft, nontender. NEUROLOGICAL: Intact. IMPRESSION: 1. Syncope, etiology unknown. 2. Probable right upper lobe neoplasm. PLAN: Progress to activity and he will be seen by pulmonology. MMODL / IJN: [id number] /
== END 2022-07-05 12:22 | disposition home or self-care (01) | DRG 204 ==
LOC: EC 20:38 → 3SCARD 22:21
PROVIDERS: ADMIT Family Medicine; ATTEND Family Medicine
DX: R55 Syncope and collapse (principal); C34.11 Malignant neoplasm of upper lobe, right bronchus or lung; E86.0 Dehydration; J47.0 Bronchiectasis with acute lower respiratory infection; J85.1 Abscess of lung with pneumonia; Z86.16 Personal history of COVID-19; F10.20 Alcohol dependence, uncomplicated; F12.10 Cannabis abuse, uncomplicated; F14.10 Cocaine abuse, uncomplicated; F17.210 Nicotine dependence, cigarettes, uncomplicated; Z20.822 Contact with and (suspected) exposure to COVID-19; I08.1 Rheumatic disorders of both mitral and tricuspid valves; Z71.6 Tobacco abuse counseling; Y93.01 Activity, walking, marching and hiking; R09.02 Hypoxemia; Z79.899 Other long term (current) drug therapy; Z79.51 Long term (current) use of inhaled steroids
CPT/HCPCS: 36415; 71046; 71275; 80053; 83036; 83605; 83735; 83880; 84100; 84145; 84484; 85025; 85379; 85610; 85730; 87040; 87449; 87635; 93005; 93306; 94640; 94760; 96374; 96375; 99291

== ENCOUNTER 2022-07-20 17:11 | Emergency (ER) | payer OTHER ==
--- NOTE | 2022-07-20 17:45 | ED ---
Recheck HPI - General Chief Complaint: Recheck/Abnormal Lab/Rx Stated Complaint: Recheck Time Seen by Provider: 07/20/22 17:27 Source: patient, EMS, RN notes reviewed, old records reviewed Mode of arrival: EMS Limitations: no limitations - History of Present Illness Initial Comments: This is a 62-year-old male to the emergency department today. Patient presents today for evaluation of not feeling well. Recent diagnosis of lung cancer had a PET scan today does admit to severe stress and anxiety related to these events. Otherwise no complaints of chest pain or travel show sick contacts no fevers no cough no congestion or shortness of breath. MD Complaint: other -: days(s) (Not feeling well) Returns Today for: Called Because of Abnormal Lab/Test, persistent/worsening pa in related to initial visit Symptoms Since Prior Visit: no new symptoms Context: planned re-check (Patient presents for evaluation regarding known can cer, after PET scan with severe anxiety) Associated Symptoms: none Treatments Prior to Arrival: other (0) - Related Data Home Medications Medication Instructions Recorded Confirmed ALPRAZolam [Xanax] 1 mg PO TID 07/03/22 07/03/22 Albuterol Sulfate [Albuterol 2 puff PO RT-QID PRN 07/03/22 07/03/22 Sulfate Hfa] Budesonide/Formoterol Fumarate 2 puff INHALATION RT-DAILY 07/03/22 07/03/22 [Symbicort 160-4.5 Mcg Inhaler] Ibuprofen [Motrin] 400 mg PO Q8HR PRN 07/03/22 07/03/22 Ipratropium-Albuterol Nebulize 3 ml INHALATION RT-BID 07/03/22 07/03/22 [Duoneb 0.5 mg-3 mg/3 ml Soln] Omeprazole [PriLOSEC] 20 mg PO BID PRN 07/03/22 07/03/22 Ondansetron [Zofran] 4 mg PO Q8HR PRN 07/03/22 07/03/22 oxyCODONE-APAP 10-325MG [Percocet 1 tab PO QID 07/03/22 07/03/22 10-325 mg] predniSONE 10 mg PO PC-BRKFST 07/03/22 07/03/22 Allergies Allergy/AdvReac Type Severity Reaction Status Date / Time No Known Allergies Allergy Verified 07/20/22 17:20 Review of Systems ROS Statement: Those systems with pertinent positive or pertinent negative responses have been documented in the HPI. ROS Other: All systems not noted in ROS Statement are negative. Past Medical History Past Medical History: No Reported History, COPD Additional Past Medical History / Comment(s): Lung CA History of Any Multi-Drug Resistant Organisms: None Reported Past Surgical History: Appendectomy Additional Past Surgical History / Comment(s): knee surgery x 2, shoulder surgery Past Anesthesia/Blood Transfusion Reactions: No Reported Reaction Past Psychological History: No Psychological Hx Reported Smoking Status: Current every day smoker Past Alcohol Use History: Daily Past Drug Use History: Marijuana General Exam Limitations: no limitations General appearance: alert, in no apparent distress, anxious, lethargic, in distress, cachectic Head exam: Present: atraumatic, normocephalic, normal inspection Eye exam: Present: normal appearance, PERRL, EOMI. Absent: scleral icterus, conjunctival injection, periorbital swelling ENT exam: Present: normal exam, mucous membranes moist Neck exam: Present: normal inspection. Absent: tenderness, meningismus, lymphadenopathy Respiratory exam: Present: normal lung sounds bilaterally. Absent: respiratory distress, wheezes, rales, rhonchi, stridor Cardiovascular Exam: Present: regular rate, normal rhythm, normal heart sounds. Absent: systolic murmur, diastolic murmur, rubs, gallop, clicks GI/Abdominal exam: Present: soft, normal bowel sounds. Absent: distended, tenderness, guarding, rebound, rigid Extremities exam: Present: normal inspection, full ROM, normal capillary refill. Absent: tenderness, pedal edema, joint swelling, calf tenderness Back exam: Present: normal inspection Neurological exam: Present: alert, oriented X3, CN II-XII intact Psychiatric exam: Present: normal affect, normal mood Skin exam: Present: warm, dry, intact, normal color. Absent: rash Course Vital Signs 07/20/22 07/20/22 07/20/22 17:14 19:20 20:14 Temperature 97.8 F 97.9 F Pulse Rate 72 74 Pulse Rate [ 82 Staff Nuclear Medicine Technologist ] Respiratory 18 20 16 Rate Blood Pressure 114/79 107/77 O2 Sat by Pulse 98 97 Oximetry - Reevaluation(s) Reevaluation #1: 07/20/22 19:59 Medical records reviewed Reevaluation #2: 07/20/22 19:59 symptoms are resolved Reevaluation #3: 07/20/22 19:59 Patient informed results questions Reevaluation #4: 07/20/22 19:59 Was pt. sent in by a medical professional or institution? @ -no Did you speak to anyone other than the patient for history? @ -no Did you review nursing and triage notes? @ -agree Were old charts reviewed? @ -no Differential Diagnosis? @ -prior EKG interpreted by me (3pts min.)? @ -yes X-rays interpreted by me (1pt min.)? @ -yes CT interpreted by me (1pt min.)? @ -no U/S interpreted by me (1pt. min.)? @ -no What testing was considered but not performed? (CT, X-rays, U/S, labs)? Why? @ -no What meds were considered but not given? Why? @ -no Did you discuss the management of the patient with other professionals? @ -no Did you reconcile home meds? @ -no Was smoking cessation discussed for >3mins.? @ -no Was critical care preformed (if so, how long)? @ -no Were there social determinants of health that impacted care today? How? (Homelessness, low income, unemployed, alcoholism, drug addiction, transportation, low edu. Level, literacy, decrease access to med. care, snf, rehab)? @ -no Was there de-escalation of care discussed even if they declined? (Discuss DNR or withdrawal of care, Hospice)? @ -no What co-morbidities impacted this encounter? (DM, HTN, Smoking, COPD, CAD, Cancer, CVA, Hep., AIDS, mental health diagnosis, sleep apnea, morbid obesity)? @ -none Was patient admitted / discharged? @ -62 male to the emergency department for evaluation of severe anxiety, cancer pain shortness of breath and COPD. Patient symptoms are improved feels improved and can be discharged home Discharge Undiagnosed new problem with uncertain prognosis? @ -no Drug Therapy requiring intensive monitoring for toxicity (Heparin, Nitro, Insulin, Cardizem)? @ -no Were any procedures done? @ -no Diagnosis/symptom? @ -Cancer, bronchitis and COPD with cancer pain, severe anxiety secondary to new diagnosis Acute, or Chronic, or Acute on Chronic? @ -Acute Uncomplicated (without systemic symptoms) or Complicated (systemic symptoms)? @ -uncomplicated Side effects of treatment? @ -no Exacerbation, Progression, or Severe Exacerbation] @ -no Poses a threat to life or bodily function? @ -yes with new Diagnoses of cancer, complications of cancer hypoxia Medical Decision Making - Medical Decision Making 62 male with severe and significant anxiety secondary to recent diagnosis of cancer on PET scan today. Patient has symptoms resolved here in the ER and feels good for discharge home - Lab Data Result diagrams: 07/20/22 18:05 07/20/22 18:05 Lab Results 07/20/22 07/20/22 07/20/22 Range/Units 18:05 18:05 18:05 WBC 9.4 (3.8-10.6) k/uL RBC 4.57 (4.30-5.90) m/uL Hgb 15.1 (13.0-17.5) gm/dL Hct 46.3 (39.0-53.0) % MCV 101.3 H (80.0-100.0) fL MCH 32.9 (25.0-35.0) pg MCHC 32.5 (31.0-37.0) g/dL RDW 12.9 (11.5-15.5) % Plt Count 286 (150-450) k/uL MPV 7.5 Neutrophils % 51 % Lymphocytes % 33 % Monocytes % 6 % Eosinophils % 7 % Basophils % 1 % Neutrophils # 4.9 (1.3-7.7) k/uL Lymphocytes # 3.1 (1.0-4.8) k/uL Monocytes # 0.6 (0-1.0) k/uL Eosinophils # 0.6 (0-0.7) k/uL Basophils # 0.1 (0-0.2) k/uL PT 9.6 (9.0-12.0) sec INR 0.9 (<1.2) APTT 25.6 (22.0-30.0) sec Sodium 140 (137-145) mmol/L Potassium 3.9 (3.5-5.1) mmol/L Chloride 106 (98-107) mmol/L Carbon Dioxide 24 (22-30) mmol/L Anion Gap 10 mmol/L BUN 5 L (9-20) mg/dL Creatinine 0.51 L (0.66-1.25) mg/dL Est GFR (CKD-EPI)AfAm >90 (>60 ml/min/1.73 sqM) Est GFR (CKD-EPI)NonAf >90 (>60 ml/min/1.73 sqM) Glucose 66 L (74-99) mg/dL Plasma Lactic Acid Carlos (0.7-2.0) mmol/L Calcium 9.0 (8.4-10.2) mg/dL Phosphorus 4.2 (2.5-4.5) mg/dL Magnesium 2.0 (1.6-2.3) mg/dL Total Bilirubin 0.6 (0.2-1.3) mg/dL AST 30 (17-59) U/L ALT 21 (4-49) U/L Alkaline Phosphatase 71 (38-126) U/L Troponin I (0.000-0.034) ng/mL NT-Pro-B Natriuret Pep pg/mL Total Protein 7.3 (6.3-8.2) g/dL Albumin 4.1 (3.5-5.0) g/dL 07/20/22 07/20/22 07/20/22 Range/Units 18:05 18:05 18:05 WBC (3.8-10.6) k/uL RBC (4.30-5.90) m/uL Hgb (13.0-17.5) gm/dL Hct (39.0-53.0) % MCV (80.0-100.0) fL MCH (25.0-35.0) pg MCHC (31.0-37.0) g/dL RDW (11.5-15.5) % Plt Count (150-450) k/uL MPV Neutrophils % % Lymphocytes % % Monocytes % % Eosinophils % % Basophils % % Neutrophils # (1.3-7.7) k/uL Lymphocytes # (1.0-4.8) k/uL Monocytes # (0-1.0) k/uL Eosinophils # (0-0.7) k/uL Basophils # (0-0.2) k/uL PT (9.0-12.0) sec INR (<1.2) APTT (22.0-30.0) sec Sodium (137-145) mmol/L Potassium (3.5-5.1) mmol/L Chloride (98-107) mmol/L Carbon Dioxide (22-30) mmol/L Anion Gap mmol/L BUN (9-20) mg/dL Creatinine (0.66-1.25) mg/dL Est GFR (CKD-EPI)AfAm (>60 ml/min/1.73 sqM) Est GFR (CKD-EPI)NonAf (>60 ml/min/1.73 sqM) Glucose (74-99) mg/dL Plasma Lactic Acid Carlos 2.0 (0.7-2.0) mmol/L Calcium (8.4-10.2) mg/dL Phosphorus (2.5-4.5) mg/dL Magnesium (1.6-2.3) mg/dL Total Bilirubin (0.2-1.3) mg/dL AST (17-59) U/L ALT (4-49) U/L Alkaline Phosphatase (38-126) U/L Troponin I <0.012 (0.000-0.034) ng/mL NT-Pro-B Natriuret Pep 77 pg/mL Total Protein (6.3-8.2) g/dL Albumin (3.5-5.0) g/dL - EKG Data -: EKG Interpreted by Me (EKG is sinus 68 UT 173 QRS 83 QTc 400) - Radiology Data Radiology results: report reviewed (Chest x-rays negative for acute disease), image reviewed Disposition Clinical Impression: Generalized pain, Weakness, Anxiety Disposition: HOME SELF-CARE Condition: Good Instructions (If sedation given, give patient instructions): Generalized Anxiety Disorder (ED), Anxiety (ED) Is patient prescribed a controlled substance at d/c from ED?: No Referrals: Levi Gunter MD [Primary Care Provider] - 1-2 days Time of Disposition: 19:25
[2022-07-20] MEDS ORDERED: SODIUM CHLORIDE 0.9% 1,000 ML IV STA (17:46)
[2022-07-20 18:22] LABS: Basophils # (A) 0.1 k/uL (0-0.2); Basophils % (A) 1 %; Eosinophils # (A) 0.6 k/uL (0-0.7); Eosinophils % (A) 7 %; HCT 46.3 % (39.0-53.0); HGB 15.1 gm/dL (13.0-17.5); Lymphocytes # (A) 3.1 k/uL (1.0-4.8); Lymphocytes % (A) 33 %; MCH 32.9 pg (25.0-35.0); MCHC 32.5 g/dL (31.0-37.0); MCV 101.3 fL (80.0-100.0); Mean Platelet Volume 7.5; Monocytes # (A) 0.6 k/uL (0-1.0); Monocytes % (A) 6 %; Neutrophils # (A) 4.9 k/uL (1.3-7.7); Neutrophils % (A) 51 %; Platelet Count 286 k/uL (150-450); RBC 4.57 m/uL (4.30-5.90); RDW 12.9 % (11.5-15.5); WBC 9.4 k/uL (3.8-10.6)
[2022-07-20 18:30] LABS: INR 0.9 (<1.2); Partial Thromboplastin Time 25.6 sec (22.0-30.0); Prothrombin Time 9.6 sec (9.0-12.0)
[2022-07-20 18:32] LABS: ALT 21 U/L (4-49); AST 30 U/L (17-59); African American GFR (CKD) >90 (>60 ml/min/1.73 sqM); Albumin 4.1 g/dL (3.5-5.0); Alkaline Phosphatase 71 U/L (38-126); Anion Gap 10 mmol/L; Blood Urea Nitrogen 5 mg/dL (9-20); Carbon Dioxide 24 mmol/L (22-30); Chloride 106 mmol/L (98-107); Glucose 66 mg/dL (74-99); Non-African American GFR(CKD) >90 (>60 ml/min/1.73 sqM); Phosphorus 4.2 mg/dL (2.5-4.5); Potassium 3.9 mmol/L (3.5-5.1); Sodium 140 mmol/L (137-145); Total Bilirubin 0.6 mg/dL (0.2-1.3); Total Protein 7.3 g/dL (6.3-8.2)
[2022-07-20] MEDS ORDERED: ONDANSETRON 4 MG/2 ML VIAL IVP STA (18:39)
[2022-07-20] MEDS ORDERED: LORazepam 2 MG/ML INJ IV STA (18:39)
[2022-07-20] MEDS ORDERED: HYDROmorphone 1 MG/ML 1 ML SYRINGE IVP STA (18:39)
--- NOTE | 2022-07-20 18:48 | XR ---
EXAMINATION TYPE: XR chest 1V portable DATE OF EXAM: 07/20/2022 COMPARISON: 07/04/2022 INDICATION: Weakness difficulty breathing TECHNIQUE: Single frontal view of the chest is obtained. FINDINGS: The heart size is normal. The pulmonary vasculature is normal. Right apical consolidation is present. Some air space is present which appears stable. There is devia tion of the trachea to the right. Findings the right apex appears stable from comparison. Infection and neoplasm remain within the differential. Continued follow-up is recommended. IMPRESSION: 1. Stable right upper lobe consolidation. Continued follow-up is recommended
[2022-07-20] MEDS ORDERED: traMADol 50 MG STARTER PACK 3 TAB BTL PO STA (19:51)
[2022-07-20] MEDS ORDERED: LORazepam 1 MG TAB PO STA (19:51)
[2022-07-20] MEDS ORDERED: ONDANSETRON 4 MG ODT STARTER PACK 2 TAB BTL PO STA (19:51)
[2022-07-20 20:15] VITALS: BP 107/77; PULSE 74; RESP 16; TEMP 97.9
== END 2022-07-20 20:15 | disposition home or self-care (01) ==
LOC: EC 17:11
DX: R52 Pain, unspecified (principal); R53.1 Weakness; F41.9 Anxiety disorder, unspecified; J44.9 Chronic obstructive pulmonary disease, unspecified; F12.90 Cannabis use, unspecified, uncomplicated; F17.200 Nicotine dependence, unspecified, uncomplicated; Z79.51 Long term (current) use of inhaled steroids; Z79.52 Long term (current) use of systemic steroids; Z79.899 Other long term (current) drug therapy
CPT/HCPCS: 36415; 93005; 83880; 80053; 83605; 83735; 84100; 84484; 85025; 85610; 85730; 71045; 99284; 96374; 96375 ×2; 96361; J2060; J2405; J1170; S0119

== ENCOUNTER 2022-09-21 12:20 | Observation (INO) | payer OTHER ==
[2022-09-21] MEDS ORDERED: SODIUM CHLORIDE 0.9% 1,000 ML IV STA (13:03)
[2022-09-21] MEDS ORDERED: MORPHINE SULFATE 4 MG/ML SYRINGE IVP STA (13:04)
--- NOTE | 2022-09-21 13:05 | ED ---
SOB HPI - General Chief Complaint: Shortness of Breath Stated Complaint: Syncope,History of Lung Cancer Time Seen by Provider: 09/21/22 12:43 Source: patient, EMS Mode of arrival: EMS Limitations: no limitations - History of Present Illness Initial Comments: Villa is a pleasant 62yo M with PMH of metastatic lung cancer which has resulted in esophageal compression and difficulty eating or swallowing patient is apparently scheduled for surgery on Saturday he's not certain who the surgeon is but he states that the surgery to help him swallow again. Because of his difficulty with swallowing and frequent choking episodes he's become very fearful of attempting to eat or drink and has become quite dehydrated. Today he attempted to walk up a flight of stairs and got very lightheaded and passed out, his daughter witnessed the episode and was able to grab his head prior to hitting the ground. She did strike his back and complains of significant pain in his back. He also shortness of breath this is baseline for him. - Related Data Home Medications Medication Instructions Recorded Confirmed ALPRAZolam [Xanax] 1 mg PO TID 07/03/22 09/21/22 Albuterol Sulfate [Albuterol 2 puff PO RT-QID PRN 07/03/22 09/21/22 Sulfate Hfa] Budesonide/Formoterol Fumarate 2 puff INHALATION RT-BID 07/03/22 09/21/22 [Symbicort 160-4.5 Mcg Inhaler] Ipratropium-Albuterol Nebulize 3 ml INHALATION RT-BID 07/03/22 09/21/22 [Duoneb 0.5 mg-3 mg/3 ml Soln] Omeprazole [PriLOSEC] 20 mg PO BID PRN 07/03/22 09/21/22 oxyCODONE-APAP 10-325MG [Percocet 1 tab PO QID 07/03/22 09/21/22 10-325 mg] predniSONE 10 mg PO DAILY 07/03/22 09/21/22 Allergies Allergy/AdvReac Type Severity Reaction Status Date / Time No Known Allergies Allergy Verified 09/21/22 18:41 Review of Systems ROS Statement: Those systems with pertinent positive or pertinent negative responses have been documented in the HPI. ROS Other: All systems not noted in ROS Statement are negative. Past Medical History Past Medical History: No Reported History, COPD Additional Past Medical History / Comment(s): Lung CA History of Any Multi-Drug Resistant Organisms: None Reported Past Surgical History: Appendectomy Additional Past Surgical History / Comment(s): knee surgery x 2, shoulder surgery Past Anesthesia/Blood Transfusion Reactions: No Reported Reaction Past Psychological History: No Psychological Hx Reported Smoking Status: Current every day smoker Past Alcohol Use History: Daily Past Drug Use History: Marijuana General Exam - General Exam Comments Initial Comments: Physical Exam GENERAL: Ill appearing HENT: Normocephalic, Atraumatic. EYES: PERRL, EOMI PULMONARY: Decreased breath sounds CARDIOVASCULAR: There is a regular rate and rhythm without any murmurs gallops or rubs. ABDOMEN: Soft and nontender with normal bowel sounds. SKIN: Dry, skin tenting : Deferred NEUROLOGIC: Patient is alert and oriented x3. Moving all extremities MUSCULOSKELETAL: Generalized atrophy, back pain PSYCHIATRIC: Situational anxiety Limitations: no limitations Course Vital Signs 09/21/22 09/21/22 09/21/22 12:29 13:19 15:22 Temperature 98.1 F Pulse Rate 79 65 56 L Respiratory 22 15 15 Rate Blood Pressure 137/81 137/81 131/81 O2 Sat by Pulse 99 99 94 L Oximetry 09/21/22 09/21/22 19:20 21:11 Temperature 98.0 F Pulse Rate 59 L 56 L Respiratory 18 18 Rate Blood Pressure 128/88 126/79 O2 Sat by Pulse 97 96 Oximetry Medical Decision Making - Medical Decision Making Was pt. sent in by a medical professional or institution (, PA, CRANE LADLE PERSON, urgent care, hospital, or fdc...) When possible be specific @ -No Did you speak to anyone other than the patient for history (EMS, parent, family, police, friend...)? What history was obtained from this source @ -Family at bedside Did you review nursing and triage notes (agree or disagree)? Why? @ -I reviewed and agree with nursing and triage notes Were old charts reviewed (outside hosp., previous admission, EMS record, old EKG, old radiological studies, urgent care reports/EKG's, fdc records)? Report findings @ -Previous notes and imaging was reviewed Differential Diagnosis (chest pain, altered mental status, abdominal pain women, abdominal pain men, vaginal bleeding, weakness, fever, dyspnea, syncope, headache, dizziness, GI bleed, back pain, seizure, CVA, palpatations, mental health, musculoskeletal)? @ -Differential Dyspnea: Coronary syndrome, arrhythmia, tamponade, asthma, COPD, pulmonary embolism, pneumonia, pneumothorax, pulmonary effusion, anaphylaxis, diabetic ketoacidosis, flailed chest, pulmonary contusion, diaphragmatic rupture, anemia, neuromuscu lar, this is not meant to be an all-inclusive list. EKG interpreted by me (3pts min.). @ -As above X-rays interpreted by me (1pt min.). @ -None done CT interpreted by me (1pt min.). @ -None done U/S interpreted by me (1pt. min.). @ -None done What testing was considered but not performed or refused? (CT, X-rays, U/S, labs)? Why? @ -None What meds were considered but not given or refused? Why? @ -None Did you discuss the management of the patient with other professionals (professionals i.e. , PA, CRANE LADLE PERSON, lab, RT, psych nurse, social media project manager, heel slugger, teacher, first officer and flight instructor, case filler)? Give summary @ -Discussed with [facility] hospitalist group who accepts the admission Was smoking cessation discussed for >3mins.? @ -No Was critical care preformed (if so, how long)? @ -No Were there social determinants of health that impacted care today? How? (Homelessness, low income, unemployed, alcoholism, drug addiction, transportat ion, low edu. Level, literacy, decrease access to med. care, group home, rehab)? @ -No Was there de-escalation of care discussed even if they declined (Discuss DNR or withdrawal of care, Hospice)? DNR status @ -No What co-morbidities impacted this encounter? (DM, HTN, Smoking, COPD, CAD, Cancer, CVA, ARF, Chemo, Hep., AIDS, mental health diagnosis, sleep apnea, morbid obesity)? @ -Cancer Was patient admitted / discharged? Hospital course, mention meds given and route, prescriptions, significant lab abnormalities, going to OR and other pertinent info. @ -Admitted Undiagnosed new problem with uncertain prognosis? @ -No Drug Therapy requiring intensive monitoring for toxicity (Heparin, Nitro, Insulin, Cardizem)? @ -No Were any procedures done? @ -No Diagnosis/symptom? @ -Shortness of breath, cancer associated pain Acute, or Chronic, or Acute on Chronic? @ -default Uncomplicated (without systemic symptoms) or Complicated (systemic symptoms)? @ -default Side effects of treatment? @ -No Exacerbation, Progression, or Severe Exacerbation? @ -No Poses a threat to life or bodily function? How? (Chest pain, USA, VT, pneumonia, PE, COPD, DKA, ARF, appy, cholecystitis, CVA, Diverticulitis, Homicidal, Suicidal, threat to staff... and all critical care pts) @ -No - Lab Data Result diagrams: 09/21/22 13:19 09/21/22 13:19 Lab Results 09/21/22 09/21/22 09/21/22 Range/Units 13:19 13:19 13:19 WBC 7.8 (3.8-10.6) k/uL RBC 4.17 L (4.30-5.90) m/uL Hgb 14.2 (13.0-17.5) gm/dL Hct 42.0 (39.0-53.0) % MCV 100.9 H (80.0-100.0) fL MCH 34.1 (25.0-35.0) pg MCHC 33.8 (31.0-37.0) g/dL RDW 12.6 (11.5-15.5) % Plt Count 193 (150-450) k/uL MPV 7.7 Neutrophils % 68 % Lymphocytes % 19 % Monocytes % 8 % Eosinophils % 2 % Basophils % 0 % Neutrophils # 5.3 (1.3-7.7) k/uL Lymphocytes # 1.5 (1.0-4.8) k/uL Monocytes # 0.7 (0-1.0) k/uL Eosinophils # 0.2 (0-0.7) k/uL Basophils # 0.0 (0-0.2) k/uL PT 10.4 (9.0-12.0) sec INR 1.0 (<1.2) APTT 25.3 (22.0-30.0) sec Sodium 135 L (137-145) mmol/L Potassium 3.7 (3.5-5.1) mmol/L Chloride 109 H (98-107) mmol/L Carbon Dioxide 15 L (22-30) mmol/L Anion Gap 11 mmol/L BUN 4 L (9-20) mg/dL Creatinine 0.49 L (0.66-1.25) mg/dL Est GFR (CKD-EPI)AfAm >90 (>60 ml/min/1.73 sqM) Est GFR (CKD-EPI)NonAf >90 (>60 ml/min/1.73 sqM) Glucose 71 L (74-99) mg/dL Calcium 8.2 L (8.4-10.2) mg/dL Total Bilirubin 0.8 (0.2-1.3) mg/dL AST 79 H (17-59) U/L ALT 41 (4-49) U/L Alkaline Phosphatase 109 (38-126) U/L Troponin I (0.000-0.034) ng/mL Total Protein 6.4 (6.3-8.2) g/dL Albumin 3.5 (3.5-5.0) g/dL 09/21/22 Range/Units 13:19 WBC (3.8-10.6) k/uL RBC (4.30-5.90) m/uL Hgb (13.0-17.5) gm/dL Hct (39.0-53.0) % MCV (80.0-100.0) fL MCH (25.0-35.0) pg MCHC (31.0-37.0) g/dL RDW (11.5-15.5) % Plt Count (150-450) k/uL MPV Neutrophils % % Lymphocytes % % Monocytes % % Eosinophils % % Basophils % % Neutrophils # (1.3-7.7) k/uL Lymphocytes # (1.0-4.8) k/uL Monocytes # (0-1.0) k/uL Eosinophils # (0-0.7) k/uL Basophils # (0-0.2) k/uL PT (9.0-12.0) sec INR (<1.2) APTT (22.0-30.0) sec Sodium (137-145) mmol/L Potassium (3.5-5.1) mmol/L Chloride (98-107) mmol/L Carbon Dioxide (22-30) mmol/L Anion Gap mmol/L BUN (9-20) mg/dL Creatinine (0.66-1.25) mg/dL Est GFR (CKD-EPI)AfAm (>60 ml/min/1.73 sqM) Est GFR (CKD-EPI)NonAf (>60 ml/min/1.73 sqM) Glucose (74-99) mg/dL Calcium (8.4-10.2) mg/dL Total Bilirubin (0.2-1.3) mg/dL AST (17-59) U/L ALT (4-49) U/L Alkaline Phosphatase (38-126) U/L Troponin I <0.012 (0.000-0.034) ng/mL Total Protein (6.3-8.2) g/dL Albumin (3.5-5.0) g/dL - EKG Data -: EKG Interpreted by Me EKG Comments: EKG is obtained due to complaint of shortness breath EKG was obtained at 1355 rate is 68 regular appears to be sinus no obvious ST elevations or depressions in the anterior leads inferior leads are isoelectric Disposition Clinical Impression: Cancer associated pain, Difficulty swallowing, Anxiety Disposition: ADMITTED IP TO THIS [facility] Condition: Serious
[2022-09-21 13:35] LABS: Basophils % (A) 0 %; Eosinophils # (A) 0.2 k/uL (0-0.7); Eosinophils % (A) 2 %; HGB 14.2 gm/dL (13.0-17.5); Lymphocytes # (A) 1.5 k/uL (1.0-4.8); Lymphocytes % (A) 19 %; MCH 34.1 pg (25.0-35.0); MCHC 33.8 g/dL (31.0-37.0); MCV 100.9 fL (80.0-100.0); Mean Platelet Volume 7.7; Monocytes # (A) 0.7 k/uL (0-1.0); Monocytes % (A) 8 %; Neutrophils # (A) 5.3 k/uL (1.3-7.7); Neutrophils % (A) 68 %; Platelet Count 193 k/uL (150-450); RBC 4.17 m/uL (4.30-5.90); RDW 12.6 % (11.5-15.5); WBC 7.8 k/uL (3.8-10.6)
[2022-09-21 13:51] LABS: ALT 41 U/L (4-49); AST 79 U/L (17-59); African American GFR (CKD) >90 (>60 ml/min/1.73 sqM); Albumin 3.5 g/dL (3.5-5.0); Alkaline Phosphatase 109 U/L (38-126); Anion Gap 11 mmol/L; Blood Urea Nitrogen 4 mg/dL (9-20); Calcium 8.2 mg/dL (8.4-10.2); Carbon Dioxide 15 mmol/L (22-30); Chloride 109 mmol/L (98-107); Glucose 71 mg/dL (74-99); Non-African American GFR(CKD) >90 (>60 ml/min/1.73 sqM); Potassium 3.7 mmol/L (3.5-5.1); Sodium 135 mmol/L (137-145); Total Bilirubin 0.8 mg/dL (0.2-1.3); Total Protein 6.4 g/dL (6.3-8.2)
[2022-09-21] MEDS ORDERED: LORazepam 2 MG/ML INJ IV STA (14:56)
[2022-09-21] MEDS: DEXTROSE 5%-0.9% NACL 1,000 ML IV SCH ×2 (15:20→19:53)
[2022-09-21 15:32] LABS: Partial Thromboplastin Time 25.3 sec (22.0-30.0); Prothrombin Time 10.4 sec (9.0-12.0)
--- NOTE | 2022-09-21 17:07 | XR ---
EXAMINATION TYPE: XR chest 2V DATE OF EXAM: 09/21/2022 4:34 PM COMPARISON: Chest radiographs from 07/20/2022. TECHNIQUE: XR chest 2V Frontal and lateral views of the chest. CLINICAL INDICATION:Male, 62 years old with history of syncope; FINDINGS: Lungs/Pleura: Similar cystic right upper lung lesion. No significant change from 07/20/2022. There is no evidence of pleural effusion, or pneumothorax. Pulmonary vascularity: Unremarkable. Heart/mediastinum: Cardiomediastinal silhouette is unremarkable. Musculoskeletal: No acute osseous pathology. IMPRESSION: Similar right upper lung cystic lesion with consolidation.
--- NOTE | 2022-09-21 17:11 | XR ---
EXAMINATION TYPE: XR thoracic spine complete DATE OF EXAM: 09/21/2022 4:35 PM INDICATION: Patient age:Male; 62 years old; Reason for study: fall; [facility]. COMPARISON: Same day chest radiograph. TECHNIQUE: 2 views of the thoracic spine in Frontal and lateral projections. FINDINGS: No evidence of acute fracture. There is scattered multilevel disk space narrowing without loss of ve rtebral body height. There is normal alignment of the thoracic vertebral bodies. Scattered osteophyte formation along the anterior and lateral aspects of the vertebral bodies. Neural foramen are patent given limitations of this exam. Spinal canal appears patent. IMPRESSION: 1. No acute osseous pathology. 2. Mild multilevel degeneration of the spine.
--- NOTE | 2022-09-21 17:12 | XR ---
EXAMINATION TYPE: XR lumbar spine 2 or 3V DATE OF EXAM: 09/21/2022 4:35 PM INDICATION: Patient age:Male; 62 years old; Reason for study: fall; [facility]. COMPARISON: None TECHNIQUE: Frontal, lateral and coned in L5-S1 lateral views of the spine. FINDINGS: No evidence of any acute osseous pathology. No evidence of loss of vertebral body height i s seen. There is normal alignment of the lumbar vertebral bodies. Mild scattered disc space narrowing . Multilevel marginal osteophyte formation throughout the visualized spine. There is facet joint arth ropathy throughout the spine. Scattered at least mild neural foraminal stenosis. IMPRESSION: 1. No acute fracture. 2. Moderate multilevel disc degeneration.
[2022-09-21] MEDS ORDERED: HYDROmorphone 0.5 MG/0.5 ML SYRINGE IVP STA (18:24)
[2022-09-21] MEDS ORDERED: NALOXONE 0.4 MG/ML 1 ML VIAL IV PRN (18:24)
[2022-09-21] MEDS: predniSONE 10 MG TAB PO SCH (21:59)
[2022-09-21] MEDS ORDERED: oxyCODONE-APAP 10-325MG 1 EACH TAB PO SCH (22:00)
[2022-09-21] MEDS ORDERED: ALPRAZolam 1 MG TAB PO SCH (22:00)
[2022-09-21] MEDS ORDERED: ALBUTEROL NEBULIZED 2.5 MG/3 ML INHALATION PRN (22:09)
--- NOTE | 2022-09-22 02:51 | HP ---
HISTORY AND PHYSICAL CHIEF COMPLAINT: Syncopal episode and back pain. HISTORY OF PRESENT ILLNESS: This is a 62-year-old white male who is being worked up for right upper lobe pulmonary neoplasm. He apparently fell at home and he was complaining of severe back pain. REVIEW OF SYSTEMS: He has had no headaches, neurologic problems, hemoptysis, abdominal pain, nausea, vomiting, urinary complaints, etc. Past medical history, family history and personal and social history reveal that he is on albuterol inhaler, Xanax, Symbicort, prednisone, Prilosec, and oxycodone. PHYSICAL EXAMINATION: VITAL SIGNS: Normal. CHEST: Demonstrates decreased breath sounds anteriorly and posteriorly over the right upper lobe. CARDIAC: Normal. ABDOMEN: Soft, nontender. EXTREMITIES: Normal. NEUROLOGIC: He is intact. IMPRESSION: 1. Syncopal episode. 2. Right upper lobe pulmonary neoplasm. PLAN: 1. Bed rest. 2. IV fluids. 3. Analgesics. 4. He will be undergoing further diagnostic treatment and therapy in the near future. MMODL / IJN: [id number] /
[2022-09-22] MEDS: oxyCODONE-APAP 10-325MG 1 EACH TAB PO SCH ×4 (04:21→22:25)
[2022-09-22 05:56] LABS: Glucose,Whole Blood 92 mg/dL (70-110)
[2022-09-22] MEDS: DEXTROSE 5%-0.9% NACL 1,000 ML IV SCH ×2 (06:15→22:22)
[2022-09-22] MEDS: PANTOPRAZOLE 40 MG TABLET PO SCH (06:26)
[2022-09-22] MEDS: ALPRAZolam 1 MG TAB PO SCH ×3 (06:26→22:25)
[2022-09-22] MEDS: SYMBICORT 160-4.5 MCG INHALER INHALATION SCH ×2 (08:11→21:11)
[2022-09-22] MEDS: IPRATROPIUM-ALBUTEROL 3 ML NEB INHALATION SCH ×2 (08:11→21:11)
[2022-09-22] MEDS: predniSONE 10 MG TAB PO SCH (10:15)
--- NOTE | 2022-09-22 12:43 | PN ---
PROGRESS NOTE DATE OF SERVICE: 09/22/2022 SUBJECTIVE: This is a 62-year-old gentleman with a past medical history of multiple medical problems, admitted with a syncopal episode and back pain, and the patient is being worked up for right upper lobe pulmonary neoplasm. The patient apparently fell at home. The lumbar x-rays showed multilevel DJD. The thoracic spine x-rays were also reviewed. No acute osseus pathology was determined. There is no history of any fever, rigors, or chills. PAST MEDICAL HISTORY: Reviewed. REVIEW OF SYSTEMS: A 14-point review of systems is negative except as mentioned earlier. CURRENT MEDICATIONS: Reviewed, include Symbicort. Dose and rest of the medications reviewed. PHYSICAL EXAMINATION: VITAL SIGNS: Pulse 55, blood pressure 110/70, respirations 16. HEENT: Conjunctivae normal. NECK: No jugular venous distention. CARDIOVASCULAR: S1, S2. ABDOMEN: Soft, nontender. LEGS: No edema. NERVOUS SYSTEM: No focal deficit. LABORATORY DATA: Labs are reviewed. CO2 is 15. Sodium is 115. The chest x-ray reviewed personally. The spine x-rays were also reviewed personally. ASSESSMENT: 1. Fall and severe back pain with multilevel DJD. No obvious fracture. 2. Hyponatremia. 3. Decreased CO2. 4. Right pulmonary neoplasm, possibly under workup. 5. Increased AST. 6. Multiple medical issues. RECOMMENDATIONS AND DISCUSSION: This is a 62-year-old gentleman, who presented with multiple complex medical issues. We will monitor the patient closely. I would recommend symptomatic treatment. Recommend oxycodone and continue to monitor. Steroids have been initiated. Dr. Gunter will follow tomorrow. See orders for further details. MMODL / IJN: [id number] / [facility]
[2022-09-22] MEDS: NICOTINE 14MG/24HR PATCH TRANSDERM SCH (22:25)
[2022-09-23 02:21] VITALS: RESP 16
[2022-09-23] MEDS: oxyCODONE-APAP 10-325MG 1 EACH TAB PO SCH ×2 (04:24→09:37)
[2022-09-23] MEDS: ALPRAZolam 1 MG TAB PO SCH (06:50)
[2022-09-23] MEDS: PANTOPRAZOLE 40 MG TABLET PO SCH (06:50)
[2022-09-23] MEDS: DEXTROSE 5%-0.9% NACL 1,000 ML IV SCH (07:56)
[2022-09-23] MEDS: SYMBICORT 160-4.5 MCG INHALER INHALATION SCH (08:07)
[2022-09-23] MEDS: IPRATROPIUM-ALBUTEROL 3 ML NEB INHALATION SCH (08:07)
[2022-09-23 08:49] VITALS: BP 140/84; PULSE 64; TEMP 98.1
[2022-09-23] MEDS: NICOTINE 14MG/24HR PATCH TRANSDERM SCH (09:37)
[2022-09-23] MEDS: predniSONE 10 MG TAB PO SCH (09:37)
[2022-09-23 12:58] LABS: Basophils # (A) 0.04 X 10*3/uL (0.00-0.10); Basophils % (A) 0.6 %; Eosinophils # (A) 0.21 X 10*3/uL (0.04-0.35); Eosinophils % (A) 3.2 %; HCT 42.3 % (39.6-50.0); HGB 13.9 d/dL (13.0-17.0); Lymphocytes # (A) 1.68 X 10*3/uL (0.90-5.00); Lymphocytes % (A) 25.7 %; MCH 33.3 pg (27.0-32.0); MCHC 32.9 d/dL (32.0-37.0); MCV 101.4 FL (80.0-97.0); Mean Platelet Volume 10.2 FL (9.5-12.2); Monocytes # (A) 0.71 X 10*3/uL (0.20-1.00); Monocytes % (A) 10.9 %; NRBC Per 100 WBC 0 X 10*3/uL (0.00-0.01); Neutrophils # (A) 3.89 X 10*3/uL (1.80-7.70); Neutrophils % (A) 59.4 %; Platelet Count 173 X 10*3/uL (140-440); RBC 4.17 X 10*6/uL (4.40-5.60); RDW 12.6 % (11.5-14.5); WBC 6.54 X 10*3/uL (4.50-10.00)
[2022-09-23 13:11] LABS: BUN/Creat Ratio <7.00 Ratio (12.00-20.00); Blood Urea Nitrogen <3.5 mg/dL (9.0-27.0); Calcium 8.6 mg/dL (8.7-10.3); Carbon Dioxide 22.8 mmol/L (21.6-31.8); Chloride 110 mmol/L (96-109); Glucose 90 mg/dL (70-110); Potassium 3.6 mmol/L (3.5-5.5); Sodium 141 mmol/L (135-145)
--- NOTE | 2022-09-24 03:16 | DS ---
DISCHARGE SUMMARY CHIEF COMPLAINT: Back pain and carcinoma of the lung. HISTORY OF PRESENT ILLNESS AND PHYSICAL EXAM: Details of this man's history and physical can be found in the initial workup. LABORATORY STUDIES: While he was in the hospital, he had laboratory studies, details of which can be found in the laboratory section of his chart. COURSE IN THE HOSPITAL: After admission, he was placed on bedrest, started on intravenous fluids, and analgesics. He was seen by Oncology. He was stable and arrangements were being made for him to undergo further treatment and he signed out against medical advice on the . He will be followed up in the office. FINAL DIAGNOSES: 1. Intractable back pain. 2. 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 3. Chronic obstructive pulmonary disease. OPERATIONS: None. CONSULTATIONS: Oncology. He is improved. MMODL / IJN: [id number] /
== END 2022-09-23 11:29 | disposition left against medical advice (07) ==
LOC: EC 12:20 → 5NMEDONC 18:24
PROVIDERS: ADMIT Family Medicine; ATTEND Family Medicine
DX: R55 Syncope and collapse (principal); M54.9 Dorsalgia, unspecified; E87.1 Hypo-osmolality and hyponatremia; C34.11 Malignant neoplasm of upper lobe, right bronchus or lung; C79.9 Secondary malignant neoplasm of unspecified site; G89.3 Neoplasm related pain (acute) (chronic); J44.9 Chronic obstructive pulmonary disease, unspecified; F17.200 Nicotine dependence, unspecified, uncomplicated; M47.816 Spondylosis without myelopathy or radiculopathy, lumbar region; R74.01 Elevation of levels of liver transaminase levels; F41.8 Other specified anxiety disorders; W19.XXXA Unspecified fall, initial encounter; Y92.009 Unspecified place in unspecified non-institutional (private) residence as the place of occurrence of the external cause; Z53.29 Procedure and treatment not carried out because of patient's decision for other reasons; Z79.51 Long term (current) use of inhaled steroids; Z79.899 Other long term (current) drug therapy; Z79.891 Long term (current) use of opiate analgesic; Z90.49 Acquired absence of other specified parts of digestive tract; Z98.890 Other specified postprocedural states
CPT/HCPCS: 96361 ×2; 96374; 96375; 99285; 36415; 94640 ×4; 94760 ×2; 93005; 80053; 80048; 84484; 85025 ×2; 85610; 85730; 72072; 72100; 71046; G0378 ×3; S4990 ×2; J2060; J2270; J7512 ×2; J1170

== ENCOUNTER → 2022-10-31 | Day surgery (SDC) | payer OTHER ==
[2022-10-30 12:37] VITALS: BMI 17.9
[~2022-10-31] MED LIST: DEXAMETHASONE SOD PHOSPHATE 4 MG/ML 1 ML VIAL IV ONE; HYDROmorphone 0.5 MG/0.5 ML SYRINGE IVP PRN; IPRATROPIUM-ALBUTEROL 3 ML NEB INHALATION STA; KETAMINE 10 MG/ML 20 ML VIAL ONE; LACTATED RINGERS 1,000 ML IV SCH; LIDOCAINE 1% (10MG/ML) FOR IV START INTRADERMA PRN; LIDOCAINE 2% INJ 20 MG/ML (2 ML VIAL) ONE; LIDOCAINE 2% INJ 20 MG/ML INTRATRACH ONE; MIDAZOLAM 2 MG/2 ML VIAL IV PRN; MIDAZOLAM 2 MG/2 ML VIAL ONE; ONDANSETRON 4 MG/2 ML VIAL IVP ONE; PROPOFOL 10 MG/ML 20 ML VIAL IV ONE
[2022-10-31 11:48] VITALS: TEMP 97.2
[2022-10-31 12:00] LABS: Glucose,Whole Blood 93 mg/dL (70-110)
--- NOTE | 2022-10-31 12:36 | P.PCN ---
Date of Procedure: 10/31/22 Preoperative Diagnosis: Right upper lobe pneumonia, chronic Postoperative Diagnosis: Right upper lobe pneumonia, chronic Procedure(s) Performed: This can be, bronchioloalveolar lavage of the right upper lobe Anesthesia: MAC Surgeon: Lorelei Iglesias Estimated Blood Loss (ml): 0 Pathology: other Condition: stable Disposition: same day Operative Findings: This procedure was done in the endoscopy suite. A consent was obtained. A timeout was done. Anesthetic agents was administered by anesthesia the bedside. The patient was given propofol The patient was placed on a simple fullface mask at 10 L/m nasal cannula. Oxygenation was stable throughout the procedure. The flexible bronchoscope was introduced through the left nostril and was advanced into the upper airway. Examination of the posterior pharynx, larynx, epiglottis, arytenoids and the cords were all within normal limits. The vocal cord function mobility was normal and there was a normal abduction and adduction. A total of 2 mL of 1% lidocaine was applied to the vocal cords and following of the bronchoscope was introduced into the upper trachea. Examination of the airways was done. There was loose liquidy respiratory secretions scattered throughout the patient's airway mainly in the trachea and the bilateral mainstem bronchi. Therapeutic airway suctioning was done. Airway inspection was completed and the visualized airways including the trachea, bilateral mainstem bronchi, right upper lobe bron chus, bronchus intermedius, right middle lobe bronchus and the right lower lobe bronchus and the various 10 segments on the right, examination of the left side included left mainstem bronchus, left upper lobe bronchus and left lower lobe bronchus and the various segments on the left. The airway inspection was within normal limits. Apical and anterior and posterior segment of the right upper lobe were within normal limits. A bronchioloalveolar lavage was done. A total of 60 mL of fluid was infused into the apical and anterior segment of the right upper lobe. Approximately 25 mL of saline was aspirated without any complication. Aspirate was nonbloody and it was cloudy. The patient encounter some cough. I suctioned there was some residual left or secretions. The bronchoscope was removed and the patient was transferred to recovery in stable condition. The right upper lobe bronchial lavage will be sent for microbial cultures and analysis. No complications Patient is to be discharged home to be followed up in the office.
[2022-10-31 14:11] VITALS: BP 148/56; PULSE 98; RESP 16
== END ==
LOC: ORWHC2ENDO 11:13
PROVIDERS: ATTEND Internal Medicine Critical Care Medicine
DX: J18.9 Pneumonia, unspecified organism (principal); J44.9 Chronic obstructive pulmonary disease, unspecified; F17.210 Nicotine dependence, cigarettes, uncomplicated; F15.90 Other stimulant use, unspecified, uncomplicated; Z79.51 Long term (current) use of inhaled steroids; Z79.52 Long term (current) use of systemic steroids; Z79.899 Other long term (current) drug therapy; Z85.118 Personal history of other malignant neoplasm of bronchus and lung
CPT/HCPCS: 94640; 88108; 88305; 31624; J2001 ×2; J2250; J2704; 87070; 87102; 87116; 87205; 87206

== ENCOUNTER → 2023-05-01 | Outpatient (CLI) | payer OTHER ==
--- NOTE | 2023-05-01 11:30 | CT ---
Exam: CT Chest with contrast. Date: 05/01/2023. Comparison: 09/27/2022. History: Lobar pneumonia. Technique: CT examination of the chest was performed following the intravenous administration of 100 mL of Isovue-300. Coronal and sagittal reformats were performed. CT dose lowering techniques were us ed, to include: automated exposure control, adjustment for patient size, and/or use of iterative holden nstruction. FINDINGS: Mediastinum and Marisa: There is no axillary, mediastinal or hilar lymphadenopathy. Pleural and Pericardial spaces: There are no pleural or pericardial effusions. Upper Abdomen: There is diffuse decreased attenuation of the liver which is compatible with fatty tasha er infiltration. The visualized upper abdomen otherwise appears unremarkable. Cardiovascular: The thoracic aorta is normal in size without evidence of aneurysm or dissection. Ther e is severe diffuse coronary artery calcifications. Pulmonary Artery: There are no central pulmonary arterial abnormalities. The examination was not per formed to evaluate for pulmonary embolism. Lung Parenchyma and Airways: There is consolidative changes in the right lung apex with extensive cys tic changes and bullous changes since this is similar to the previous examination this may relate to infection with chronic changes also a possibility. There is significant volume loss also seen within this region. Moderate centrilobular emphysema and upper lobe predominant paraseptal emphysematous aurelia nges are also seen. The left lung otherwise appears clear. There are scattered inflammatory airway ch anges. Bones: No fracture or aggressive osseous lesion. IMPRESSION: 1. Similar appearance to the consolidative changes and cystic changes within the right upper lobe and apex may relate to a chronic pneumonia versus additional chronic changes. 2. Mild emphysema. 3. Severe coronary artery calcifications. 4. Hepatic steatosis.
== END | disposition home or self-care (01) ==
LOC: RADCTMAIN 09:26
PROVIDERS: ATTEND Internal Medicine Critical Care Medicine
DX: J43.2 Centrilobular emphysema (principal); I25.10 Atherosclerotic heart disease of native coronary artery without angina pectoris; K76.0 Fatty (change of) liver, not elsewhere classified; J18.1 Lobar pneumonia, unspecified organism; R19.8 Other specified symptoms and signs involving the digestive system and abdomen
CPT/HCPCS: 71260; Q9967

== ENCOUNTER → 2024-07-31 | Outpatient (CLI) | payer OTHER ==
--- NOTE | 2024-07-31 14:13 | CT ---
EXAMINATION TYPE: CT chest w con CT DLP: 352 mGycm, Automated exposure control for dose reduction was used. DATE OF EXAM: 07/31/2024 1:54 PM COMPARISON: CTA chest 04/01/2024, CT chest 05/01/2023, 02/10/2022 CLINICAL INDICATION:Male, 64 years old with history of J98.4 pulmonary nodule; PHH, Lung nodule TECHNIQUE: Multiple axial images were obtained through the chest following the administration of 100 cc of Isovue 300. . Coronal and sagittal reformats reviewed. FINDINGS: LUNGS/ PLEURA: No change in marked chronic changes in the right upper lobe with marked bronchiectasis , lung cysts and dense airspace consolidation. There is marked volume loss on the right with retracti on of the miko superiorly again. Mild centrilobular emphysematous changes within the left lung. Moder ate left apical paraseptal emphysematous changes. No pleural effusion or pneumothorax. Stable solid 4 mm pulmonary nodule within the right middle lobe (series 4, image 39). Stable left upper lobe 3.6 pu lmonary pulmonary nodule (series 4, image 21). No new or enlarging pulmonary nodules. Additional mild peribronchial cuffing and bronchiectasis in lower lobes. No new focal consolidation. AIRWAY: Patent and unremarkable.. HEART: Size within normal limits. . No pericardial effusion. Moderate coronary artery calcifications present. MEDIASTINUM: No evidence of adenopathy. VASCULATURE: No aortic aneurysm. No evidence for pulmonary embolism. MUSCULOSKELETAL: No acute osseous abnormalities. Remote healed left-sided rib fractures. No aggressiv e osseous lesion. SOFT TISSUES/LYMPH NODES: Stable subcentimeter left axillary lymph nodes. LOWER NECK: No significant findings. UPPER ABDOMEN: Left renal upper pole 1.5 cm simple cyst. No follow up recommended. IMPRESSION: 1. Similar appearance to chronic consolidative changes and cystic changes in the right upper lobe as described above. 2. Couple of stable pulmonary nodules dating back to at least 2022 and considered benign. No new or e nlarging pulmonary nodules. [facility], , 07/31/2024 2:10 PM
== END | disposition home or self-care (01) ==
LOC: RADCTMAIN 13:17
PROVIDERS: ATTEND Internal Medicine Hematology & Oncology
DX: J98.4 Other disorders of lung (principal); D53.8 Other specified nutritional anemias; D60.9 Acquired pure red cell aplasia, unspecified; J43.9 Emphysema, unspecified; R91.8 Other nonspecific abnormal finding of lung field
CPT/HCPCS: 71260; Q9967